=== PATIENT | male | born 1960 | race Caucasian/White ===

== ENCOUNTER 2024-08-04 11:50 | Outpatient (AMB) | payer MEDICAID, SELFPAY ==
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
[2024-08-04 12:59] VITALS: BP 134/86; PULSE 67; RESP 16; O2SAT 96; BMI 35.4
--- OUTSIDE RECORDS SUMMARY | 2024-08-04 13:31 | XMS_ITS | Encounter Summary ---
Author Organization [employer] Address [address] [place] [address] [address] [address] Care Team Providers Care Block Stacker Name Role Phone Dania Corral MD Primary Care Provider [phone] Reason for Visit * Reason Comments Med Management Encounter Details Date Type Department Care Team ([facility] Contact Info) Description 07/09/2024 8:20 AM EST Telemedicine [facility] [address] [place] [address] Dung Crabtree MD [address] [place] [address] Med Management Social History Tobacco Use Types Packs/Day Years Used Date Smoking Tobacco: Never Smokeless Tobacco: Never Alcohol Use Standard Drinks/Week Comments Never 0 (1 standard drink = 0.6 oz pur e alcohol) Depression Answer Date Recorded Patient Health Questionnaire-9 Score 23 07/10/2024 Patient Health Questionnaire-9 Score 23 07/10/2024 Last PHQ-9: Questionnaire Data 4 0 07/10/2024 Housing Stability Answer Date Recorded What is your housing situation today? I am not s ure 01/03/[address] you li ve. Do you have problems with any of the following? None of the above 01/03/2024 Food Insecurity Answer Date Recorded Within the past 12 months, y ou worried that your food would run out before you got money to buy more: Sometimes True 2023 Within the past 12 months,th e food you bought just didn't last and you didn't have enough money to get more: Sometimes True 01/03/2024 Transportation Answer Date Recorded In the past 12 months, has l ack of transportation kept you from medical appts, meetings, work or from getting things needed for daily living? No 01/03/2024 Utilities Answer Date Recorded In the past 12 months, has t he electric, gas, oil or water company threatened to shut off services in your home? No 01/03/2024 Depression Answer Date Recorded Patient Health Questionnaire-2 Score 6 07/10/2024 Internet Access Answer Date Recorded Internet Access Q1 I am not sure 01/27/2024 Internet Access Q2 Not on file 01/27/2024 Sex and Gender Information Value Date Recorded Sex Assigned at Male 03/24/2022 3:45 PM EDT Legal Sex Male 3:45 PM EDT Gender Identity Male 03/24/2022 3:45 PM EDT Sexual Orientation Straight 07/24/2022 10 :23 AM EST documented as of this encounter Progress Notes * Dung Crabtree MD - 07/09/2024 8:20 AM EST Psychiatry Follow-Up Note Length of visit: 20 mins Interview conducted in Lebanese per pt preference and as provider is fluent. Subjective ID: Lupillo Hernández is a 64 y.o. Malaysian straight-identified cis-male individual (pronouns he/him) who was formerly incarcerated for dealing drugs (release 10/2019, 31 years), with history of DM2and psychiatric history of depression, trauma, and opiate (heroin) abuse (sober > 10 years, on Vivitrol) who presents for Med Management. HPI: Patient asks to meet earlier than planned today. Reports updating [employer] and it asked for him to confirm that he discussed whether he could work or not. Pt reports still having a hard time and not feeling mental health is good enough to work. Pain does impact, but even though depression appears to be 2/2 to the pain, the depression itself is impacting his ability to complete tasks. Nightmares are ongoing. Initially when discussed, he was hesitant to make med change, however we discussed that given his depression remains so severe he feels he cannot work, that a change is likely indicated. Pt was open after this discussion. Opiates - ongoing sobriety, adherent with Vivitrol through [facility] >10 years sober, denies any cravings Previous Psychotropic Medication Trials: Celexa - reports on current regimen for some time, but has been on higher doses (40mg) before, and told was decreased due to age Risperidone - to target paranoia, reportedly while was imprisoned. Pt wants to continue as felt hashelped. No evidence of side-effects. Prozac in past, had some trouble talking Does not recall any others, reports having taken a med for sleep that increased appetite (?mirtazapine, does not recall name when asked) Amitriptyline for neuropathy and helps with sleep sertraline prazosin - helped, but 3mg too sedating Current Medications: Current Outpatient Medications on File Prior to Visit Medication Sig Dispense Refill acetaminophen (Tylenol) 500 MG tablet Take by mouth. amitriptyline (Elavil) 25 MG tablet TAKE 1 TABLET (25 MG) BY MOUTH at BEDTIME. 90 tablet 2 atorvastatin (Lipitor) 20 MG tablet TAKE 1 TABLET (20 MG) BY MOUTH IN THE MORNING. 90 tablet 2 finasteride (Proscar) 5 MG tablet Take 5 mg by mouth in the morning. gabapentin (Neurontin) 600 MG tablet TAKE 1 TABLET (600 MG) BY MOUTH 2 TIMES DAILY. 60 tablet 10 lisinopril 10 MG tablet TAKE 1 TABLET (10 MG) BY MOUTH IN THE MORNING. 90 tablet 2 melatonin 3 MG tablet Take 1 tablet (3 mg) by mouth at bedtime. 90 tablet 0 metFORMIN (Glucophage) 500 MG tablet TAKE 1 TABLET (500 MG) BY MOUTH WITH BREAKFAST. 90 tablet 2 nadolol (Corgard) 20 MG tablet TAKE 1 TABLET (20 MG) BY MOUTH IN THE MORNING. 90 tablet 3 naltrexone ER (Vivitrol) injection Apply topically. prazosin (Minipress) 1 MG capsule Take 1-2 capsules (1-2 mg) by mouth at bedtime. For nightmares. 180 capsule 0 sertraline (Zoloft) 100 MG tablet Take 2 tablets (200 mg) by mouth Once per day. 180 tablet 0 tamsulosin (Flomax) 0.4 MG 24 hr capsule Take 0.4 mg by mouth at bedtime. topiramate (Topamax) 100 MG tablet Take 1 tablet (100 mg) by mouth at bedtime. For nightmares. 90 tablet 0 topiramate (Topamax) 50 MG tablet Take 0.5 tablets (25 mg) by mouth if needed at bedtime (breakthrough nightmares). In addition to 100mg tablet. 45 tablet 0 [DISCONTINUED] risperiDONE (RisperDAL) 1 MG tablet Take 1 tablet (1 mg) by mouth 2 times daily. 180tablet 0 No current facility-administered medications on file prior to visit. Current Medication Notes: No other reported changes in medications from those listed in chart. Review of Symptoms: Review of Systems Constitutional: Negative. Except as per HPI All other systems reviewed and are negative. Objective There were no vitals taken for this visit. Wt Readings from Last 4 Encounters: 01/10/24 228 lb 6.4 oz (104 kg) 06/28/23 228 lb (103 kg) 04/27/23 232 lb (105 kg) 07/27/22 220 lb 9.6 oz (100 kg) Physical Exam Constitutional: Appearance: Normal appearance. Neurological: Mental Status: He is alert. Psychiatric: Attention and Perception: Attention and perception normal. He does not perceive auditory or visual hallucinations. Mood and Affect: Affect normal. Mood is depressed (reports worse iso nightmares, pain and poor subsequent sleep). Speech: Speech normal. Behavior: Behavior normal. Behavior is cooperative. Thought Content: Thought content is not paranoid. Thought content does not include homicidal or suicidal ideation. Cognition and Memory: Cognition and memory normal. Judgment: Judgment normal. Laboratory/Imaging/Diagnostic Tests Lab Results Component Value Date CHOLESTEROL 131 01/10/2024 CHOLESTEROL 143 07/27/2022 LDLCHOL 72 01/10/2024 LDLCHOL 73 07/27/2022 HDLCHOL 34 (L) 01/10/2024 HDLCHOL 48 07/27/2022 TRIG 172 (H) 01/10/2024 TRIG 137 07/27/2022 CREATININE 1.14 01/10/2024 CREATININE 1.00 04/27/2023 GLUCOSE 88 01/10/2024 HGBA1C 5.7 (H) 01/10/2024 HGBA1C 5.8 (H) 04/27/2023 AST 16 01/10/2024 AST 15 04/27/2023 ALT 17 01/10/2024 ALT 19 04/27/2023 Assessment/Plan Lupillo Hernández is a 64 y.o. Malaysian straight-identified cis-male individual (pronouns he/him)who was formerly incarcerated for dealing drugs (release 10/2019, 31 years), with history of DM2 andpsychiatric history of depression, trauma, and opiate (heroin) abuse (sober > 10 years, on Vivitrol). Assessment/Plan Problem List Items Addressed This Visit Psychiatry Problems Major depressive disorder, recurrent severe without psychotic features (CMS/HCC) - Primary Remains low. Impacting functioning. Discussed transitioning from risperidone to aripiprazole, whichwould likely help augment antidepressant more than the risperidone. Pt in agreement. Reviewed cross-taper. Has found therapy helpful. Pt asks if can work. He feels he cannot. Agree that at current state, between depression and pain, that can see working would be difficult. Also did note that this may get better in the future once his pain and mood are better managed. Pt was in agreement with this frame. Regarding sleep, will continue to monitor. Poor sleep mainly 2/2 to pain, but could consider a z-drug in the future to see if helps increase quality of sleep without interacting with his other meds. - Pt to resumed therapy, patient to ask therapist to fax over a copy of the HAJA he says he signed with him - Continue Zoloft 200mg - Cross-titrate from Risperdal to Abilify (see below) - Aware patient is on amitriptyline from PCP and at increased risk of serotonin syndrome but has been on this agent for decades without issues, reviewed signs and symptoms of SS and to seek immediatemedical attention if concerned (particularly during cross-taper) - Encourage to try group therapy to socialize more Generalized anxiety disorder - As per Depression Post traumatic stress disorder Although does feel topiramate helps overall baseline of nightmares, currently in a lot of pain (sciatica) while waiting for a new pain MD. This impacts his sleep, which appears in turn to increase the intensity of nightmares. Feels if did not have pain and slept better, this would be better. D Given ongoing low mood, discussed cross-tapering from Risperdal to Abilify, given the latter may have more of an augmenting effect mood-machado. Patient agreed. Reviewed cross-taper. Plans to request sleep study--agree with patient given at risk with BMI and does snore and wake up with headaches sometime. Reports already got referral for [facility] but he needs to call to schedule it now. Risperdal reportedly present for paranoia, however Abilify should continue to help with this--will monitor. - Antidepressant as per Depression - Cross-taper from Risperdal to Abilify (on initially for paranoia from distant past, but cross-tapering to also target mood) - Week 1: Risperdal down to 1mg daily, Abilify 5mg daily - Week 2: Stop Risperdal, increase Abilify to 10mg and stay until next appt - See most recent labs from 07/2021 above - Performed abbreviated AIMS exam via telehealth to evaluate orofacial and upper body movements, none noted and pt has no complaints - Continue prazosin to 1-2mg nightmares and hypervigilence. PCP aware on this agent as also on other anti-hypertensives. Pt found 3mg too sedating.--While trialing topiramate, encouraging to only use1mg for now as we may cross-taper if tolerating topiramate - Continue topiramate range to up to 125mg New Medications Ordered This Visit Medications ARIPiprazole (Abilify) 10 MG tablet Sig: Take 0.5 tablets (5 mg) by mouth Once per day for 7 days, THEN 1 tablet (10 mg) Once per day. Dispense: 30 tablet Refill: 1 Risk Assessment: Imminent Risk of Suicide or Serious Self-Injury: Medium Risk factors: Depression, History of alcohol or other substance use disorder , and History of suicide attempt Protective factors: Denies current suicidal ideation, Future-oriented talk , Willingness to seek help and support , and History of adhering to treatment recommendations and/or prescribed medication regimen documented in this encounter Miscellaneous Notes * Assessment & Plan Note - Dung Crabtree MD - 07/08/2024 2:13 PM EST Associated Problem(s): Opioid use disorder, severe, in sustained remission (CMS/HCC) - Sober - Ongoing Vivitrol through clinic in [place] - Therapy * Assessment & Plan Note - Dung Crabtree MD - 07/08/2024 2:13 PM EST Associated Problem(s): Generalized anxiety disorder - As per Depression * Assessment & Plan Note - Dung Crabtree MD - 07/08/2024 2:13 PM EST Associated Problem(s): Post traumatic stress disorder Although does feel topiramate helps overall baseline of nightmares, currently in a lot of pain (sciatica) while waiting for a new pain MD. This impacts his sleep, which appears in turn to increase the intensity of nightmares. Feels if did not have pain and slept better, this would be better. D Given ongoing low mood, discussed cross-tapering from Risperdal to Abilify, given the latter may have more of an augmenting effect mood-machado. Patient agreed. Reviewed cross-taper. Plans to request sleep study--agree with patient given at risk with BMI and does snore and wake up with headaches sometime. Reports already got referral for [facility] but he needs to call to schedule it now. Risperdal reportedly present for paranoia, however Abilify should continue to help with this--will monitor. - Antidepressant as per Depression - Cross-taper from Risperdal to Abilify (on initially for paranoia from distant past, but cross-tapering to also target mood) - Week 1: Risperdal down to 1mg daily, Abilify 5mg daily - Week 2: Stop Risperdal, increase Abilify to 10mg and stay until next appt - See most recent labs from 07/2021 above - Performed abbreviated AIMS exam via telehealth to evaluate orofacial and upper body movements, none noted and pt has no complaints - Continue prazosin to 1-2mg nightmares and hypervigilence. PCP aware on this agent as also on other anti-hypertensives. Pt found 3mg too sedating.--While trialing topiramate, encouraging to only use1mg for now as we may cross-taper if tolerating topiramate - Continue topiramate range to up to 125mg * Assessment & Plan Note - Dung Crabtree MD - 07/08/2024 2:13 PM EST Associated Problem(s): Major depressive disorder, recurrent severe without psychotic features (CMS/HCC) Remains low. Impacting functioning. Discussed transitioning from risperidone to aripiprazole, whichwould likely help augment antidepressant more than the risperidone. Pt in agreement. Reviewed cross-taper. Has found therapy helpful. Pt asks if can work. He feels he cannot. Agree that at current state, between depression and pain, that can see working would be difficult. Also did note that this may get better in the future once his pain and mood are better managed. Pt was in agreement with this frame. Regarding sleep, will continue to monitor. Poor sleep mainly 2/2 to pain, but could consider a z-drug in the future to see if helps increase quality of sleep without interacting with his other meds. - Pt to resumed therapy, patient to ask therapist to fax over a copy of the HAJA he says he signed with him - Continue Zoloft 200mg - Cross-titrate from Risperdal to Abilify (see below) - Aware patient is on amitriptyline from PCP and at increased risk of serotonin syndrome but has been on this agent for decades without issues, reviewed signs and symptoms of SS and to seek immediatemedical attention if concerned (particularly during cross-taper) - Encourage to try group therapy to socialize more documented in this encounter Plan of Treatment Upcoming Encounters Date Type Department Care Team (Late st Contact Info) Description 08/05/2024 9:40 AM EDT Telemedicine [address] [address] Dung Crabtree MD [address] [place] [id number] 08/14/2024 2:20 PM EDT Telemedicine [address] [address] Dania Corral MD [address] [place] [phone] 08/28/2024 2:20 PM EDT Office Visit [facility] [address] [place] [id number] Dania Corral MD [address] [place] [phone] documented as of this encounter Goals Goal Patient Goal Type Associated Problems Recent Progress Patient-Stated? Author Establish Regular Follow-Ups with PCP Care Plan HBA1C Uncontrolled No Aleta Felix RN Reduce HBA1C Levels Below 9% Care Plan HBA1C Uncontrolled No Aleta Felix RN Consistently take Medications as Prescribed Care Plan Med Adherence No Aleta Felix RN Exercise at Least 20 Minutes per Day Care Plan Patient is Inactive No Aleta Felix RN Wellness - Improve Physical Activity Care Plan Patient is Inactive No Aleta Felix RN Wellness - Annual Optometry apointment Care Plan Wellness Concerns No Aleta Felix RN Wellness - Podiatry DM foot exam Q 6 months Care Plan Wellness Concerns No Aleta Sanches RN Wellness - Dental check up Q 6 months Care Plan Wellness Concerns No Aleta Felix RN documented as of this encounter Visit Diagnoses Diagnosis Major depressive disorder, recurrent severe without psychotic features (CMS/HCC)- Primary Post traumatic stress disorder Posttraumatic stress disorder Generalized anxiety disorder Post traumatic stress disorder Posttraumatic stress disorder Opioid use disorder, severe, in sustained remission (CMS/HCC) Major depressive disorder, recurrent severe without psychotic features (CMS/HCC) Generalized anxiety disorder documented in this encounter Additional Health Concerns Active Problems Noted Date Diagnosed Date Diet Management 10/18/2022 HBA1C Uncontrolled 10/18/2022 Med Adherence 10/18/2022 Patient is Inactive 10/18/2022 Wellness Concerns 10/18/2022 Assessment Noted Time PHQ-9 Depression Total Score: 18 02/2 024 1:08 PM EST documented as of this encounter Care Teams Block Stacker Relationship Specialty Start Date End Date Dania Corral MD [address] [place] [address] PCP - General Internal Medicine 03/30/22 documented as of this encounter
--- OUTSIDE RECORDS SUMMARY | 2024-08-04 13:31 | XMS_ITS | Encounter Summary ---
Author Organization [employer] Address [address] [facility] 7t [place] [address] Care Team Providers Care Production Floater Name Role Phone Dania Corral MD Primary Care Provider [phone] Encounter Details Date Type Department Care Team (Latest Contact Info) Description 07/09/2024 Travel Social History Tobacco Use Types Packs/Day Years [...] AM EST documented as of this encounter Plan of Treatment Upcoming Encounters Date Type Department Care Team (Late st Contact Info) Description 08/05/2024 9:40 AM EDT Telemedicine [facility] [address] [address] Dung Crabtree MD [address] [place] [address] 08/14/2024 2:20 PM EDT Telemedicine [facility] [address] [address] Dania Corral MD [address] [place] [address] 08/28/2024 2:20 PM EDT Office Visit [facility] [address] [address] Dania Corral MD [address] [place] [address] documented as of this encounter Goals Goal [...] Day Care Plan Patient is Inactive No Altea Felix RN Wellness - Improve Physical Activity Care Plan Patient is Inactive No Aleta Felix RN Wellness - Annual Optometry apointment Care Plan Wellness Concerns No Aleta Felix RN Wellness - Podiatry DM foot exam Q 6 months Care Plan Wellness Concerns No Eldredg e, Aleta, flask handler - Dental check up Q 6 months Care Plan Wellness Concerns No Aleta Felix, RN documented as of this encounter Visit Diagnoses Not on filedocumented in this encounter Additional Health Concerns Active Problems Noted Date Diagnosed Date Diet Management 10/18/2022 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
--- OUTSIDE RECORDS SUMMARY | 2024-08-04 13:31 | XMS_ITS | Encounter Summary ---
Author Organization [employer] Address [address] [place] [address] [place] [address] Care Team Providers Care Powerhouse Oiler Name Role Phone Dania Corral MD Primary Care Provider [phone] Reason for Visit * Reason Onset Date Comments Care Coordination 07/30/2024 Encounter Details Date Type Department Care Team ([facility] st Contact Info) Description 07/30/2024 Telephone [facility] [address] [place] [address] Dania Corral MD [address] [place] [address] Care Coordination Social History Tobacco Use Types Packs/Day Years [...] AM EST documented as of this encounter Miscellaneous Notes * Telephone Encounter - Rocío Meza MA - 07/30/2024 1:28 PM EST SAV called [employer] manager [place] [id number] SAV relayed Nurse Bree koehler in a verbal referral to [facility] for [facility] home care. Sav did relay pt is not eligible for CLOTH EXAMINER HAND services through [facility]. [facility] would be assisting him with dressing, transport,meaning grocery shopping, laundry, cooking and cleaning. Pt asked if he could choose who would help him. SAV stated they could ask the case management specialist at intake. SAV also gave him a number to call for update : # [phone] (option 0 to speak to batch still operator). Pt had no further questions or concerns. * Telephone Encounter - Rocío Meza MA - 07/30/2024 1:28 PM EST ----- Message from Nurse Bree Pope sent at 07/30/2024 12:01 PM EST ----- Regarding: SAV please give update to pt, SUMANI Dr. Shayna Dietz [place] team, Please do me a favor. Turkmen speaking individual. Can you let him know that we know that unfortunately he doesnt qualify for CLOTH EXAMINER HAND services through [facility], but I was able to give a verbal referral [facility] for state home care . I let them know that given his sciatic back pain he needs help with dressing and mobility. He also needs help with transport meaning someone doing his grocery shopping, laundry, picking up objects,making the bed, putting items in drawers and in the fridge, cooking, cleaning, etc. This is all because of his severe sciatic back pain. They said they will call him within the upcoming weeks to schedule for a case management specialist to assess hisneeds (which they said they can help w all his needs). And then they will get him enrolled in theirservices. If he needs an update from them they speak Turkmen ph# [phone] (option 0 to speak to batch still operator). ----- Message ----- From: Bree Mac RN Sent: 07/28/2024 12:00 AM EST To: [facility] Subject: Bree - call [facility] to get State [facility]# Pt is not eligible for the CLOTH EXAMINER HAND care through [facility] because he doesnt have 2 or more ADL needs. They do think that he's eligible for State Home Care , we need to cb to provide verbal referral. documented in this encounter Plan of Treatment Upcoming Encounters Date Type Department Care Team (Late st Contact Info) Description 08/05/2024 9:40 AM EDT Telemedicine [address] [address] Dung Crabtree MD [address] [place] [address] 08/14/2024 2:20 PM EDT Telemedicine [facility] [address] [address] Dania Corral MD [address] [place] [address] 08/28/2024 2:20 PM EDT Office Visit [facility] [address] [address] Dania Corral MD [address] [place] [address] documented as of this encounter Goals Goal [...] documented as of this encounter Care Teams Powerhouse Oiler Relationship Specialty Start Date End Date Dania Corral MD [address] [place] [address] PCP - General Internal Medicine 03/30/22 documented as of this encounter
--- OUTSIDE RECORDS SUMMARY | 2024-08-04 13:31 | XMS_ITS | Encounter Summary ---
Author Organization [employer] Address [address] [facility] 7t [place] [address] Care Team Providers Care Wet Pan Mixer Name Role Phone Dania Corral MD Primary Care Provider [phone] Encounter Details Date Type Department Care Team (Latest Contact Info) Description 07/10/2024 Travel Social History Tobacco Use Types Packs/Day [...] Description 08/05/2024 9:40 AM EDT Telemedicine [facility] [address] [address] Dung Crabtree MD [address] [place] [address] 08/14/2024 2:20 PM EDT Telemedicine [facility] [address] [address] Dania Corral MD [address] [place] [address] 08/28/2024 2:20 PM EDT Office Visit [facility] [address] [address] Dania Corral MD [address] [place] [address] documented as of this encounter Goals Goal [...] Plan Wellness Concerns No Eldredg e, Aleta, help desk coordinator - Dental check up Q 6 months Care Plan Wellness Concerns No Aleta Felxi, RN documented as of this encounter Visit Diagnoses Not on filedocumented in this encounter Additional Health Concerns Active Problems Noted Date Diagnosed Date Diet Management 10/18/2022 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
--- OUTSIDE RECORDS SUMMARY | 2024-08-04 13:31 | XMS_ITS | Encounter Summary ---
Author Organization [employer] Address [address] [facility] 7t [place] [address] Care Team Providers Care Medical Insurance Coding Specialist Name Role Phone Dania Corral MD Primary Care Provider [phone] Encounter Details Date Type Department Care Team (Latest Contact Info) Description 07/29/2024 Travel Social History Tobacco Use Types Packs/Day [...] Description 08/05/2024 9:40 AM EDT Telemedicine [facility] [address] [address] Dung Crabtree MD [address] [place] [address] 08/14/2024 2:20 PM EDT Telemedicine [facility] [address] [address] Dania Corral MD [address] [place] [address] 08/28/2024 2:20 PM EDT Office Visit [facility] [address] [address] Dania Corral MD [address] [place] [address] documented as of this encounter Goals Goal [...] Plan Wellness Concerns No Eldredg e, Aleta, balance wheel hand filer - Dental check up Q 6 months [...] documented as of this encounter Care Teams Medical Insurance Coding Specialist Relationship Specialty Start Date End Date Dania Corral MD [address] [place] [address] PCP - General Internal Medicine 03/30/22 documented as of this encounter
--- OUTSIDE RECORDS SUMMARY | 2024-08-04 13:31 | XMS_ITS | Encounter Summary ---
Author Organization [employer] Address [address] [place] [address] [place] [address] Care Team Providers Care Machine Whitener Name Role Phone Dania Corral MD Primary Care Provider [phone] Reason for Visit * Reason Onset Date Comments Care Coordination 07/09/2024 Referral 07/09/2024 Encounter Details Date Type Department Care Team ([facility] st Contact Info) Description 07/09/2024 Telephone [facility] [place] [address] Dania Corral MD [address] [place] [address] Care Coordination; Referral Social History Tobacco Use Types Packs/Day Years [...] encounter Miscellaneous Notes * Telephone Encounter - Bree Mac RN - 07/30/2024 11:29 AM EST RN placed call to [facility] ph# [phone] Transferred to worker on duty named Lyndsay Michaud [facility] requesting a cb to place a new referral for state home care Transferred to referral department and LVM requesting a cb place a new referral for [facility] home care as pt not eligible for MITER GRINDER OPERATOR services. Lyndsay from [facility] ph# [phone] Qualified for State Home Care, but [place] doesn't service [place]. They only service [place] for MITER GRINDER OPERATOR services, but the pt isn't eligible for that service. Lyndsay believes that [facility], which is now called [facility] Care [facility] can assist w a referral for State home care in [facility]. Lyndsay states this RN can call her back if [facility] isn't the correct location for [place]. RN placed call to [facility]# [phone] - option 0 tow motor operator Vera assisted with verbal referral for state home care . This RN states pt was looking for current assistance named Giovanni to become his MITER GRINDER OPERATOR, but that he didn't have 2 or more ADL needs according to [facility] Pt reports needing help with dressing and mobility. He also needs help with transport meaning someone doing his grocery shopping, laundry, picking up objects, making the bed, putting items in drawers and in the fridge, cooking, cleaning, etc. This is all because of his severe sciatic back pain. Vera reports they can help w all the listed needs above. They will call the patient in the upcoming weeks to schedule for a case fitter to visit to perform a needs assessment and get him scheduled with services. RN sent FYI message to Dr. Corral regarding plan and asked [facility] team to call pt with an update on current plan. * Telephone Encounter - Bree Mac RN - 07/25/2024 4:44 PM EST RN received call from Katiuska Contreras @ [facility]# [phone] x [phone] She reports having spoken to pt regarding the MITER GRINDER OPERATOR referral, assessed his needs and unfortunately hedoesn't qualify for their services because he doesnt have 2 or more ADL needs. He does likely qualify for the [facility] services program through [employer] and they should be able to give him limit hours. They will also likely be able to get him the MITER GRINDER OPERATOR he desires as long as that person passes a CORI check. If [facility] would like to provide a referral, please call back their intake line. * Telephone Encounter - Bree Mac RN - 07/22/2024 3:33 PM EST RN received cb from [employer] ph# [phone] x [phone] Cm from the call center is attempting to initiate the referral with this RN, but needs answers to the following questions: Does he live alone? Any medical conditions? -> See med list, this info provided verbally by this RN. Who is the PCP? Last OV? Dr. Dania Corral and 07/17/24 What kind of support does he need? Specific ADLs Name of potential MITER GRINDER OPERATOR that pt may already have in mind? (Ex. Family member or friend who's been a MITER GRINDER OPERATOR in the past). A surrogate/legal guardian or spouse cannot function as MITER GRINDER OPERATOR. Email? Cm states if pt is appropriate for MITER GRINDER OPERATOR care it can take up to 6-8 weeks to initiate services. Noted that pt is Latvian speaking and requires an traffic recorder. Cm states this isn't an issue, but they will send emails for communication to pt in [place]. Cm denied need for this RN to fax Dx list and referral. Not needed at this time. RN placed call to [employer] ph# [phone] - [phone] - option 1 Space And Storage Clerk Laura #[phone] placed call to pt. Pt lives alone. Email: [email or web address] If the pt doesn't have at least 2 ADL needs then they wouldn't qualify for services with [facility], but rather would benefit from referral to [facility] ([facility]) would be in charge of that referral ph# [phone]. Pt reports needing help with dressing and mobility. He also needs help with transport meaning someone doing his grocery shopping, laundry, picking up objects, making the bed, putting items in drawers and in the fridge, cooking, cleaning, etc. This is all because of his severe sciatic back pain. Pt did not yet receive rx for Tramadol in the mail. Pt would prefer for Giovanni Velázquez to be his MITER GRINDER OPERATOR (he is comfortable with this person), but unsure if he's been a MITER GRINDER OPERATOR in the past. RN placed call to [facility] to complete the intake process ph# [phone] x [phone] rep Madai. took down the above information. Their office will call the pt directly within about 3 business days to schedule an assessment. * Telephone Encounter - Bree Mac RN - 07/21/2024 4:58 PM EST RN placed call to [facility] ph# [phone] Call went straight to . [facility] requesting cb to discuss MITER GRINDER OPERATOR services and need for referral. * Telephone Encounter - Chad Peterson - 07/09/2024 12:36 PM EST Patient calling to inform PCP he is in need of a referral for a MITER GRINDER OPERATOR documented in this encounter Plan of Treatment Upcoming Encounters Date Type Department Care Team (Late st Contact Info) Description 08/05/2024 9:40 AM EDT Telemedicine [address] [address] Dung Crabtree MD [address] [place] [address] 08/14/2024 2:20 PM EDT Telemedicine [address] [address] Dania Corral MD [address] [place] [address] 08/28/2024 2:20 PM EDT Office Visit [address] [address] Dania Corral MD [address] [place] [address] documented as of this encounter Goals Goal [...] documented as of this encounter Care Teams Machine Whitener Relationship Specialty [place] [address] [place], [place] [id number] PCP - General Internal Medicine 03/30/22 documented as of this encounter
--- OUTSIDE RECORDS SUMMARY | 2024-08-04 13:31 | XMS_ITS | Clinical Summary ---
Author Organization [employer] Address [address] [facility] [address] [place] [address] Care Team Providers Care Line Tester Name Role Phone Dania Corral MD Primary Care Provider Allergies No known active allergies Medications * This document contains information received from the source organization and may not represent a complete record from that organization. acetaminophen (Tylenol) 500 MG tablet Take by mouth. Active naltrexone ER (Vivitrol) injection Apply topically. 0 Active finasteride (Proscar) 5 MG tablet Take 5 mg by mouth in the morning. 3 Active tamsulosin (Flomax) 0.4 MG 24 hr capsule Take 0.4 mg by mouth at bedtime. 3 Active atorvastatin (Lipitor) 20 MG tabletIndicatio ns:Type 2 diabetes mellitus without complication, without long-term current use of insulin (CMS/HCC) TAKE 1 TABLET (20 MG) BY MOUTH IN THE MORNING. 90 tablet 2 4 12/04/19 25 Active gabapentin (Neurontin) 600 MG tabletIndicatio ns:Type 2 diabetes mellitus without complication, without long-term current use of insulin (CMS/HCC),Arthr algia of both lower legs TAKE 1 TABLET (600 MG) BY MOUTH 2 TIMES DAILY. 60 tablet 10 4 12/06/19 25 Active nadolol (Corgard) 20 MG tabletIndicatio ns:Idiopathic esophageal varices without bleeding (CMS/HCC) TAKE 1 TABLET (20 MG) BY MOUTH IN THE MORNING. 90 tablet 3 4 12/13/19 25 Active lisinopril 10 MG tabletIndicatio ns:Type 2 diabetes mellitus without complication, without long-term current use of insulin (CMS/HCC),Idiop athic esophageal varices without bleeding (CMS/HCC) TAKE 1 TABLET (10 MG) BY MOUTH IN THE MORNING. 90 tablet 2 4 01/22/20 25 Active amitriptyline (Elavil) 25 MG tabletIndicatio ns:Post traumatic stress disorder,Arthra lgia of both lower legs TAKE 1 TABLET (25 MG) BY MOUTH at BEDTIME. 90 tablet 2 4 01/22/20 25 Active metFORMIN (Glucophage) 500 MG tabletIndicatio ns:Type 2 diabetes mellitus without complication, without long-term current use of insulin (CMS/HCC) TAKE 1 TABLET (500 MG) BY MOUTH WITH BREAKFAST. 90 tablet 2 4 01/22/20 25 Active melatonin 3 MG tablet Take 1 tablet (3 mg) by mouth at bedtime. 90 tablet 4 Active prazosin (Minipress) 1 MG capsuleIndicati ons:Post traumatic stress disorder Take 1-2 capsules (1-2 mg) by mouth at bedtime. For nightmares. 180 capsule 4 Active sertraline (Zoloft) 100 MG tabletIndicatio ns:Post traumatic stress disorder,Major depressive disorder, recurrent severe without psychotic features (CMS/HCC),Gener alized anxiety disorder Take 2 tablets (200 mg) by mouth Once per day. 180 tablet 4 Active topiramate (Topamax) 50 MG tablet Take 0.5 tablets (25 mg) by mouth if needed at bedtime (breakthroug h nightmares). In addition to 100mg tablet. 45 tablet 5 09/02/19 25 Active topiramate (Topamax) 100 MG tablet Take 1 tablet (100 mg) by mouth at bedtime. For nightmares. 90 tablet 5 09/02/19 25 Active ARIPiprazole (Abilify) 10 MG tablet Take 0.5 tablets (5 mg) by mouth Once per day for 7 days, THEN 1 tablet (10 mg) Once per day. 30 tablet 1 5 08/16/19 25 Active risperiDONE (RisperDAL) 1 MG tabletIndicatio ns:Post traumatic stress disorder Take 1 tablet (1 mg) by mouth 2 times daily. 180 tablet 4 07/09/19 25 Discontinue d(Therapy completed) traMADol (Ultram) 50 MG tabletIndicatio ns:Post traumatic stress disorder,Arthra lgia of both lower legs,Chronic bilateral low back pain with right-sided sciatica Take 1 tablet (50 mg) by mouth if needed at bedtime for severe pain for up to 15 days. 15 tablet 5 08/02/19 25 Active Problems Problem Noted Date Diagnosed Date Diabetes due to undrl condition w oth diabetic n euro comp 11/30/2022 Assessment & Plan (06/28/2023 3:03 PM EST): Patient with T2DM. Stable. Last A1C: 5.8% Last eye exam: Due Other medications: LUPILLO-I, Statin, Metformin Assessment & Plan (11/30/2022 1:19 PM EDT): Patient with T2DM. Currently the patient is taking: Metformin Last A1C: 5.6%, 08/17 Goals: Continue metformin Last eye exam: Due Last podiatry exam: Du Other medications: Statin, Lupillo-I - Recommended continued metformin - recommend eye and dental exams Encounter for general adult medical examination with abnormal findings 07/27/2022 Assessment & Plan (06/28/2023 3:00 PM EST): -- Recommend regular Eye and Dental care -- Encourage regular exercise -- Counseled on importance of use of daily sunscreen to prevent skin cancer and sun damage -- Counseled on importance of adequate dietary vitamin D and calcium to promote bone health -- Counseled on importance of safer sex practices including decreased number of partners, consistent use of barrier protection Assessment & Plan (07/27/2022 1:43 PM EST): -- Immunizations: Will review once MIIS synches -- HIV testing: No new risk -- STI screening: No new risk -- Recommend regular Eye and Dental care -- Encourage regular exercise -- Counseled on importance of use of daily sunscreen to prevent skin cancer and sun damage -- Counseled on importance of adequate dietary vitamin D and calcium to promote bone health -- Counseled on importance of safer sex practices including decreased number of partners, consistent use of barrier protection Chronic bilateral low back pain with right-sided sciatica 07/27/2022 Assessment & Plan (05/15/2024 1:36 PM EST): Patient reports ongoing sciatica pain, which remains unchanged. Previous labs, including tests to rule out bone infection, were normal, indicating the pain is chronic in nature. The patient is in the process of connecting with pain medicine specialists in [place] for further management. Patient is awaiting a callback from the specialists and expects it could be any moment. - Await callback from pain medicine specialists for appointment - Follow up on pain specialist consultation in 3 months via video appointment Housing Needs Patient requires a letter of support for subsidized housing due to chronic pain and sciatica affecting daily functioning. - Physician to write a support letter for subsidized housing - Staff to contact patient regarding letter delivery and potential edits - Attempt to fax letter if possible, as requested by patient Hyperlipidemia 03/30/2022 Assessment & Plan (06/28/2023 3:06 PM EST): ? ? Order a repeat lipid profile, including total cholesterol, LDL cholesterol, HDL cholesterol, and triglyceride levels, to assess the current lipid status and evaluate the response to treatment. Recommend fasting labs for most accurate results. ? ? Review the patient's current medication regimen for HLD. Ensure the patient's adherence to the prescribed medications and evaluate the need for any adjustments based on the lipid profile results. ? ? Heart-Healthy Diet: Advise the patient to follow a diet low in saturated fats, trans fats, and cholesterol. Encourage the consumption of fruits, vegetables, whole grains, and lean proteins. Recommend limiting processed and high-fat foods. ? ? Regular Exercise: Encourage the patient to engage in at least 150 minutes of moderate-intensity aerobic exercise or 75 minutes of vigorous-intensity exercise per week. ? ? Alcohol Consumption: Discuss the impact of excessive alcohol consumption on lipid levels and advise the patient to limit alcohol intake to moderate levels as per recommended guidelines. ? ? Re-evaluate at follow up in 4-6 months Post traumatic stress disorder 10/07/2020 Assessment & Plan (07/09/2024 8:41 AM EST): Although does feel topiramate helps overall baseline [...] headaches sometime. Reports already got referral for [facility] [place] but he needs to call to schedule [...] too sedating.--While trialing topiramate, encouraging to only use 1mg for now as we may cross-taper if tolerating topiramate - Continue topiramate range to up to 125mg Assessment & Plan (04/21/2024 4:00 PM EST): Although does feel higher dose of topiramate helps overall baseline of nightmares, currently in a lot of pain (sciatica) while waiting for a new pain MD. This impacts his sleep, which appears in turn to increase the intensity of nightmares. Feels if did not have pain and slept better, this would be better. Does not think a psych med change is indicated and plans to pursue referral for new pain MD more aggressively. Reports has apple watch which confirms not having a lot of deep sleep. Denies any s/es from higher dose of topiramate. Have broached subject that it may be worth trying to taper down risperidone given potential long-term side-effects, particularly metabolically. However, patient very strongly wants to continue as feels this agent has helped. Will continue to broach subject periodically that it may be worth trialing how he would do with lower dose/taper to determine it's ongoing need, especially at this dose. For now, per patient strong request, will continue and patient aware of the concerns. Plans to request sleep study--agree with patient given at risk with BMI and does snore and wake up with headaches sometime. Reports already got referral for [facility] [place] but he needs to call to schedule it now. - Antidepressant as per Depression - Continue risperidone 1mg BID for now (was started many years ago, predating was was imprisoned), reports for paranoia. Pt wants to continue. Have discussed tapering but pt not interested yet. Will continue to discuss in future visits. - See most recent labs from 07/2021 above - Performed abbreviated AIMS exam via telehealth to evaluate orofacial and upper body movements, none noted and pt has no complaints - Continue prazosin to 1-2mg nightmares and hypervigilence. PCP aware on this agent as also on other anti-hypertensives. Pt found 3mg too sedating.--While trialing topiramate, encouraging to only use 1mg for now as we may cross-taper if tolerating topiramate - Continue topiramate range to up to 125mg Assessment & Plan (02/26/2024 9:36 AM EDT): Although does feel higher dose of topiramate helps overall baseline of nightmares, currently in a lot of pain (sciatica) while waiting for a new pain MD. This impacts his sleep, which appears in turn to increase the intensity of nightmares. Feels if did not have pain and slept better, this would be better. Does not think a psych med change is indicated and plans to pursue referral for new pain MD more aggressively. Reports has apple watch which confirms not having a lot of deep sleep. Denies any s/es from higher dose of topiramate. Have broached subject that it may be worth trying to taper down risperidone given potential long-term side-effects, particularly metabolically. However, patient very strongly wants to continue as feels this agent has helped. Will continue to broach subject periodically that it may be worth trialing how he would do with lower dose/taper to determine it's ongoing need, especially at this dose. For now, per patient strong request, will continue and patient aware of the concerns. Plans to request sleep study--agree with patient given at risk with BMI and does snore and wake up with headaches sometime. Encouraging patient to reach out to PCP regarding referral--especially as he would like it done at [facility] [place]. - Antidepressant as per Depression - Continue risperidone 1mg BID for now (was started many years ago, predating was was imprisoned), reports for paranoia. Pt wants to continue. Have discussed tapering but pt not interested yet. Will continue to discuss in future visits. - See most recent labs from 07/2021 above - Performed abbreviated AIMS exam via telehealth to evaluate orofacial and upper body movements, none noted and pt has no complaints - Continue prazosin to 1-2mg nightmares and hypervigilence. PCP aware on this agent as also on other anti-hypertensives. Pt found 3mg too sedating.--While trialing topiramate, encouraging to only use 1mg for now as we may cross-taper if tolerating topiramate - Continue topiramate range to up to 125mg Assessment & Plan (11/26/2023 11:49 AM EDT): Overall, feels sleep is better--thinks starting melatonin helped. However, nightmares continue and distress. Did feel topiramate helped and would like to trial a higher dose. Since tolerating without s/es, appropriate to try. Will increase range up to 125mg Have broached subject that it may be worth trying to taper down risperidone given potential long-term side-effects, particularly metabolically. However, patient very strongly wants to continue as feels this agent has helped. Will continue to broach subject periodically that it may be worth trialing how he would do with lower dose/taper to determine it's ongoing need, especially at this dose. For now, per patient strong request, will continue and patient aware of the concerns. Plans to request sleep study--agree with patient given at risk with BMI and does snore and wake up with headaches sometime. - Antidepressant as per Depression - Continue risperidone 1mg BID for now (was started many years ago, predating was was imprisoned), reports for paranoia. Pt wants to continue. Have discussed tapering but pt not interested yet. Will continue to discuss in future visits. - See most recent labs from 07/2021 above - Performed abbreviated AIMS exam via telehealth to evaluate orofacial and upper body movements, none noted and pt has no complaints - Continue prazosin to 1-2mg nightmares and hypervigilence. PCP aware on this agent as also on other anti-hypertensives. Pt found 3mg too sedating.--While trialing topiramate, encouraging to only use 1mg for now as we may cross-taper if tolerating topiramate - Increase topiramate range to up to 125mg (has been taking 100mg) Assessment & Plan (08/24/2023 11:17 AM EDT): Does feel increase in topiramate helped with quality of sleep. Still some nightmares but less intense. Overall, feels sleep is better--thinks starting melatonin helped. Broached subject today that it may be worth trying to taper down risperidone given potential long-term side-effects, particularly metabolically. However, patient very strongly wants to continue as feels this agent has helped. Will continue to broach subject periodically that it may be worth trialing how he would do with lower dose/taper to determine it's ongoing need, especially at this dose. For now, per patient strong request, will continue and patient aware of the concerns. Plans to request sleep study--agree with patient given at risk with BMI and does snore and wake up with headaches sometime. - Antidepressant as per Depression - Continue risperidone 1mg BID for now (was started many years ago, predating was was imprisoned), reports for paranoia. Pt wants to continue. Have discussed tapering but pt not interested yet. Will continue to discuss in future visits. - See most recent labs from 07/2021 above - Performed abbreviated AIMS exam via telehealth to evaluate orofacial and upper body movements, none noted and pt has no complaints - Continue prazosin to 1-2mg nightmares and hypervigilence. PCP aware on this agent as also on other anti-hypertensives. Pt found 3mg too sedating.--While trialing topiramate, encouraging to only use 1mg for now as we may cross-taper if tolerating topiramate - Continue topiramate range to 75-100mg at bedtime (generally taking 100mg lately) Assessment & Plan (06/25/2023 11:54 AM EST): Does feel increase in topiramate helped with quality of sleep. Still some nightmares but less intense. Plans to request sleep study--agree with patient given at risk with BMI and does snore and wake up with headaches sometime. - Antidepressant as per Depression - Continue risperidone 1mg BID for now (was started many years ago, predating was was imprisoned), reports for paranoia. Pt wants to continue. May discuss reducing dose in future. - See most recent labs from 07/2021 above - Performed abbreviated AIMS exam via telehealth to evaluate orofacial and upper body movements, none noted and pt has no complaints - Continue prazosin to 1-2mg nightmares and hypervigilence. PCP aware on this agent as also on other anti-hypertensives. Pt found 3mg too sedating.--While trialing topiramate, encouraging to only use 1mg for now as we may cross-taper if tolerating topiramate - Continue topiramate range to 75-100mg at bedtime (generally taking 100mg lately) Assessment & Plan (04/18/2023 1:51 PM EST): Does feel topiramate has helped with sleep. Nightmares still. Only taking 50mg. Willing to try 75-100mg. Plans to request sleep study--agree with patient given at risk with BMI and does snore and wake up with headaches sometime. - Antidepressant as per Depression - Continue risperidone 1mg BID for now (was started many years ago, predating was was imprisoned), reports for paranoia. Pt wants to continue. May discuss reducing dose in future. - See most recent labs from 07/2021 above - Performed abbreviated AIMS exam via telehealth to evaluate orofacial and upper body movements, none noted and pt has no complaints - Continue prazosin to 1-2mg nightmares and hypervigilence. PCP aware on this agent as also on other anti-hypertensives. Pt found 3mg too sedating.--While trialing topiramate, encouraging to only use 1mg for now as we may cross-taper if tolerating topiramate - Increase topiramate range to 75-100mg at bedtime if tolerates Assessment & Plan (03/21/2023 1:17 PM EDT): Noticed some significant benefit just the first night on topiramate, but reports had the best sleep he had had for years. However, nightmares returned afterwards. He would like to try higher doses, will provide a range. Tolerating topiramate--will assess for cognitive effects if starts using higher doses consistently. - Antidepressant as per Depression - Continue risperidone 1mg BID for now (was started many years ago, predating was was imprisoned), reports for paranoia. Pt wants to continue. May discuss reducing dose in future. - See most recent labs from 07/2021 above - Performed abbreviated AIMS exam via telehealth to evaluate orofacial and upper body movements, none noted and pt has no complaints - Continue prazosin to 1-2mg nightmares and hypervigilence. PCP aware on this agent as also on other anti-hypertensives. Pt found 3mg too sedating.--While trialing topiramate, encouraging to only use 1mg for now as we may cross-taper if tolerating topiramate - Increase topiramate range to 50-100mg QHS Assessment & Plan (02/21/2023 1:17 PM EDT): Ongoing nightmares but better on prazosin. Content mostly about incarceration. Distressed about these. Did not tolerate higher doses of prazosin. Will do a trial of topiramate to target anxiety. Patient aware off-label for this indication but does have evidence in literature in helping with nightmares. Reviewed common side- effects such as sedation, decreased appetite,and taste change. Reviewed possible cognitive dulling. Made aware of mild increased risk of kidney stones and encourage to hydrate. Patient agreed. Sent info-sheet in [place] as well via [employer]. Patient started therapy outside of . Patient states signed a release with them. Provided him with my fax # so [facility] can be sent to me. - Antidepressant as per Depression - Continue risperidone 1mg BID for now (was started many years ago, predating was was imprisoned), reports for paranoia. Pt wants to continue. May discuss reducing dose in future. - See most recent labs from 07/2021 above - Performed abbreviated AIMS exam via telehealth to evaluate orofacial and upper body movements, none noted and pt has no complaints - Continue prazosin to 1-2mg nightmares and hypervigilence. PCP aware on this agent as also on other anti-hypertensives. Pt found 3mg too sedating.--While trialing topiramate, encouraging to only use 1mg for now as we may cross-taper if tolerating topiramate - Trial of topiramate 25mg at bedtime to target nightmares Assessment & Plan (01/23/2023 10:20 AM EDT): Ongoing nightmares but better on prazosin. Content mostly about incarceration. Although nightmares are ongoing, did not tolerate higher dosing. - Antidepressant as per Depression - Continue risperidone 1mg BID for now (was started many years ago, predating was was imprisoned), reports for paranoia. Pt wants to continue. May discuss reducing dose in future. - See most recent labs from 07/2021 above - Performed abbreviated AIMS exam via telehealth to evaluate orofacial and upper body movements, none noted and pt has no complaints - Continue prazosin to 1-2mg nightmares and hypervigilence. PCP aware on this agent as also on other anti-hypertensives. Pt found 3mg too sedating. Assessment & Plan (12/27/2022 11:14 AM EDT): Ongoing nightmares but better on prazosin. Content mostly about incarceration. Although nightmares are ongoing, did not tolerate higher dosing. - Antidepressant as above - Continue risperidone 1mg BID for now (was started many years ago, predating was was imprisoned), reports for paranoia. Pt wants to continue. May discuss reducing dose in future. - See most recent labs from 07/2021 above - Performed abbreviated AIMS exam via telehealth to evaluate orofacial and upper body movements, none noted and pt has no complaints - Continue prazosin to 1-2mg nightmares and hypervigilence. PCP aware on this agent as also on other anti-hypertensives. Pt found 3mg too sedating. Assessment & Plan (09/25/2022 10:34 AM EDT): Ongoing nightmares but better on prazosin. Content mostly about incarceration. - Antidepressant as above - Continue risperidone 1mg BID for now (was started many years ago, predating was was imprisoned), reports for paranoia. Pt wants to continue. May discuss reducing dose in future. - See most recent labs from 07/2021 above - Performed abbreviated AIMS exam via telehealth to evaluate orofacial and upper body movements, none noted and pt has no complaints - Continue prazosin to 1-2mg nightmares and hypervigilence. PCP aware on this agent as also on other anti-hypertensives. Pt found 3mg too sedating. Assessment & Plan (07/24/2022 10:35 AM EST): Nightmares better but finds 3mg of prazosin too much, will lower back to 1-2mg. - Antidepressant as above - Continue risperidone 1mg BID for now (was started many years ago, predating was was imprisoned), reports for paranoia - Ordered new metabolic monitoring labs on 06/2022 - Last metabolic monitoring labs from 06/2021 by PCP, latest A1c ordered by PCP on 11/2021 was 5.8% (down from 5.9% on 06/2021), being followed by PCP. - Decrease prazosin to 1-2mg nightmares and hypervigilence, notified PCP of increase given on other antihypertensives but bps have not been low. Pt found 3mg too sedating. Assessment & Plan (06/15/2022 10:46 AM EST): Getting distressed about nightmares and now would like to try higher prazosin dose. - Antidepressant as above - Continue risperidone 1mg BID for now (was started many years ago, predating was was imprisoned), reports for paranoia - Last metabolic monitoring labs from 06/2021 by PCP, latest A1c ordered by PCP on 11/2021 was 5.8% (down from 5.9% on 06/2021), being followed by PCP. - Increase prazosin to 3mg nightmares and hypervigilence, notified PCP of increase given on other antihypertensives but bps have not been low Assessment & Plan (05/25/2022 3:27 PM EST): Client reports mix mood; client reports low mood due to son's health status; client reports continual experience of having nightmares; client reports working on continuing to go outside/in public. Sinus pressure 09/24/2020 Type 2 diabetes mellitus without complications 0 09/02/2020 Assessment & Plan (04/30/2023 9:31 AM EST): Patient with T2DM. Currently the patient is taking: Metformin only Last A1C: 5.7% Goals: < 7% Last eye exam: NA Last podiatry exam: NA Last UA: Due Assessment & Plan (07/27/2022 1:42 PM EST): Patient with T2DM. Currently the patient is taking: Metformin Last A1C: <7% Patients home glucose readings: NA Goals: <7% Last eye exam: >3 years ago Last podiatry exam: None, due Last UA: None, due Other medications: Lisinopril, Atorvastatin - continue Metformin - Labs ordered - Eye/Dental exam due Obesity, unspecified 12/19/2019 Arthralgia of both lower legs 12/16/2019 Assessment & Plan (07/17/2024 5:25 PM EST): Patient reports worsening sciatica with significant leg pain, exacerbated by the weather. Previous pain management strategies have been ineffective, necessitating a referral to a pain specialist. The severity of the condition is impacting the patient's ability to work and perform daily activities. - Prescribe tramadol for 3 weeks - Patient advised to take tramadol at night due to drowsiness - Caution against driving or operating heavy machinery while on tramadol - Referral to pain specialist - Patient advised to follow up with the pain specialist if they do not call by Sunday - Patient has an upcoming appointment with a [place]speaking doctor at the pain specialist's office - Staff to conduct phone check-in in 3 weeks - Refill medication if needed after 3 weeks Assessment & Plan (01/10/2024 1:43 PM EDT): - Patient reports pain on the left side, which has been bothering them for three months. - Last saw pain specialist at [facility] approximately five months ago. - Patient mentions pain in this side, this side, here, here indicating left side. - Plan: Submit referral for a pain specialist in [place]. Have returned case inspector assist with connecting the patient to a new pain specialist. Assessment & Plan (11/30/2022 1:39 PM EDT): Chronic issue given trauma/surgery/arthiritis. Recommend continued work with pain specialist. Will touch base about increasing medical management. Continue current management. Benign prostatic hyperplasia 12/16/2019 Assessment & Plan (06/28/2023 3:07 PM EST): Continue current medical management. - Has follow up with urology this month. Assessment & Plan (04/30/2023 9:30 AM EST): Following with urologist. Recently up titrated medication. Assessment & Plan (02/23/2023 4:20 PM EDT): Saw urologist Started on finasteride. Minimal improvement. Has follow up. Palpitations 12/05/2019 Opioid use disorder, severe, in sustained remiss ion 11/19/2019 Assessment & Plan (07/08/2024 2:13 PM EST): - Sober - Ongoing Vivitrol through clinic in [place] - Therapy Assessment & Plan (04/18/2024 8:56 AM EST): - Sober - Ongoing Vivitrol through clinic in [place] - Therapy Assessment & Plan (02/25/2024 2:27 PM EDT): - Sober - Ongoing Vivitrol through clinic in [place] - Therapy Assessment & Plan (11/23/2023 10:59 AM EDT): - Sober - Ongoing Vivitrol through clinic in [facility] Assessment & Plan (08/23/2023 10:05 AM EDT): - Sober - Ongoing Vivitrol through clinic in [facility] Assessment & Plan (06/22/2023 3:22 PM EST): - Sober - Ongoing Vivitrol through clinic in [facility] Assessment & Plan (04/17/2023 10:38 AM EST): - Sober - Ongoing Vivitrol through clinic in [facility] Assessment & Plan (03/20/2023 9:49 AM EDT): - Sober - Ongoing Vivitrol through clinic in [facility] Assessment & Plan (02/20/2023 9:21 AM EDT): - Sober - Ongoing Vivitrol through clinic in [facility] Assessment & Plan (01/23/2023 10:22 AM EDT): - Sober - Ongoing Vivitrol through clinic in [facility] Assessment & Plan (12/26/2022 9:08 AM EDT): - Sober - Ongoing Vivitrol through clinic in [facility] Assessment & Plan (09/24/2022 2:12 PM EDT): - Sober - Ongoing Vivitrol through clinic in [facility] Assessment & Plan (07/23/2022 12:09 PM EST): - Sober - Ongoing Vivitrol through clinic in [facility] Assessment & Plan (06/14/2022 9:42 AM EST): - Sober - Ongoing Vivitrol through clinic in [facility] Esophageal varices 11/18/2019 Assessment & Plan (04/30/2023 9:30 AM EST): Will reach out to CM to help schedule EGD. Asymptomatic for now and on beta blockers Assessment & Plan (11/30/2022 1:19 PM EDT): History of Varices. No concern for bleeding. - BP managed - Doesn't drink alcohol - EGD due Hypertension 11/18/2019 Assessment & Plan (06/28/2023 3:04 PM EST): Patient with hypertension. Denies any chest pain, headaches/vision change, or other concerning acute symptoms related to HTN. Recommend the following: Lifestyle Changes ? ? Follow DASH diet with limited sodium. ? ? Exercise regularly, ideally 30 minutes most days. ? ? Maintain a healthy weight. ? ? Limit alcohol, quit smoking if applicable. ? ? Manage stress with techniques like mindfulness. Medication ? ? Continue medical management Follow-up: ? ? Regularly monitor blood pressure and adjust treatment as necessary. Provide patient education about hypertension. Assessment & Plan (04/30/2023 9:32 AM EST): Continue current management. At goal. Reports snoring and fatigue, interested in sleep study. Assessment & Plan (07/27/2022 1:45 PM EST): Lupillo Hernández is a 62 y.o. male with hypertension.Hypertension ROS: taking medications as instructed, no medication side effects noted, no TIA's, no chest pain on exertion, no dyspnea on exertion and no swelling of ankles. BP 118/84 (BP Location: Right arm, Patient Position: Sitting, BP Cuff Size: Large adult) Pulse 59 Hypertension stable. Plan: Current treatment plan is effective, no change in therapy. Orders and follow up as documented in patient record. Reviewed diet, exercise and weight control.. Insomnia 11/18/2019 Major depressive disorder, r ecurrent severe without psychotic features 11/18/2019 Assessment & Plan (07/09/2024 8:43 AM EST): Remains low. Impacting functioning. Discussed transitioning from risperidone to aripiprazole, which would likely help augment antidepressant more than the [...] and symptoms of SS and to seek immediate medical attention if concerned (particularly during cross-taper) - Encourage to try group therapy to socialize more Assessment & Plan (04/18/2024 8:56 AM EST): Worse but iso poor sleep and more vivid nightmares. Feels if slept better without pain, this would be better. Does not think needs psych med change at this time. Has found therapy helpful. - Pt to resumed therapy, patient to ask therapist to fax over a copy of the HAJA he says he signed with him - Continue Zoloft 200mg - Aware patient is on amitriptyline from PCP and at increased risk of serotonin syndrome but has been on this agent for decades without issues, reviewed signs and symptoms of SS and to seek immediate medical attention if concerned (particularly during cross-taper) - Encourage to try group therapy to socialize more Assessment & Plan (02/26/2024 9:35 AM EDT): Worse but iso poor sleep and more vivid nightmares. Feels if slept better without pain, this would be better. Does not think needs psych med change at this time. Has found therapy helpful. - Pt to resumed therapy, patient to ask therapist to fax over a copy of the HAJA he says he signed with him - Continue Zoloft 200mg - Aware patient is on amitriptyline from PCP and at increased risk of serotonin syndrome but has been on this agent for decades without issues, reviewed signs and symptoms of SS and to seek immediate medical attention if concerned (particularly during cross-taper) - Encourage to try group therapy to socialize more Assessment & Plan (01/10/2024 1:44 PM EDT): - Patient reports mood as same and is currently on medication. - Medication dosage increased to 250 (unclear which medicaiton) mg one month ago, with a slight improvement in mood. - Plan: Continue current medication and follow up with psychiatrist on February 25. - Patient reports difficulty sleeping, not necessarily due to pain. - Patient states I don't sleep a lot when asked about sleep. - Plan: Address sleep issues with psychiatrist during the next appointment. Assessment & Plan (11/26/2023 11:49 AM EDT): Mood varies. Periods of low mood in setting of loneliness. Pain impacting as well. Has found therapy helpful. - Pt to resumed therapy, patient to ask therapist to fax over a copy of the HAJA he says he signed with him - Continue Zoloft 200mg - Aware patient is on amitriptyline from PCP and at increased risk of serotonin syndrome but has been on this agent for decades without issues, reviewed signs and symptoms of SS and to seek immediate medical attention if concerned (particularly during cross-taper) - Encourage to try group therapy to socialize more Assessment & Plan (08/23/2023 10:04 AM EDT): Mood varies. Periods of low mood in setting of loneliness. - Pt to resumed therapy, patient to ask therapist to fax over a copy of the HAJA he says he signed with him - Continue Zoloft 200mg - Aware patient is on amitriptyline from PCP and at increased risk of serotonin syndrome but has been on this agent for decades without issues, reviewed signs and symptoms of SS and to seek immediate medical attention if concerned (particularly during cross-taper) - Encourage to try group therapy to socialize more Assessment & Plan (06/22/2023 3:20 PM EST): Mood varies. Periods of low mood in setting of loneliness. - Pt to resumed therapy, patient to ask therapist to fax over a copy of the HAJA he says he signed with him - Continue Zoloft 200mg - Aware patient is on amitriptyline from PCP and at increased risk of serotonin syndrome but has been on this agent for decades without issues, reviewed signs and symptoms of SS and to seek immediate medical attention if concerned (particularly during cross-taper) - Encourage to try group therapy to socialize more Assessment & Plan (04/17/2023 10:36 AM EST): Mood varies. Periods of low mood in setting of loneliness. - Pt to resumed therapy, patient to ask therapist to fax over a copy of the HAJA he says he signed with him - Continue Zoloft 200mg - Aware patient is on amitriptyline from PCP and at increased risk of serotonin syndrome but has been on this agent for decades without issues, reviewed signs and symptoms of SS and to seek immediate medical attention if concerned (particularly during cross-taper) - Encourage to try group therapy to socialize more Assessment & Plan (03/21/2023 1:16 PM EDT): Mood varies. Periods of low mood in setting of loneliness. - Pt to resumed therapy, patient to ask therapist to fax over a copy of the HAJA he says he signed with him - Continue Zoloft 200mg - Aware patient is on amitriptyline from PCP and at increased risk of serotonin syndrome but has been on this agent for decades without issues, reviewed signs and symptoms of SS and to seek immediate medical attention if concerned (particularly during cross-taper) - Encourage to try group therapy to socialize more Assessment & Plan (02/21/2023 1:18 PM EDT): Mood varies. Periods of low mood in setting of loneliness. Does reflect felt better when had therapist and now established with new one. - Pt to resume therapy - Continue Zoloft 200mg - Aware patient is on amitriptyline from PCP and at increased risk of serotonin syndrome but has been on this agent for decades without issues, reviewed signs and symptoms of SS and to seek immediate medical attention if concerned (particularly during cross-taper) - On waitlist for new [place]speaking therapist at , provided contact information for [facility] and encouraged to try for now. Pt looking into a clinic in [place] as well - Encourage to try group therapy to socialize more Assessment & Plan (01/24/2023 11:55 AM EDT): Mood varies. Periods of low mood in setting of loneliness. Does reflect felt better when had therapist. Provided contact information for [facility], which he has. Complicated because they want him to come in in person for the intake per their policy but too far (they do offer telehealth services). He reports they said they would look into whether he can do telehealth intake but not heard back. [place] there may be a therapist in [place] taking patients so plans to look into this as well. Encouraging to find therapist rather than change medications as most likely get the most benefit from having a therapist at this time. Currently, there are no [place]-speaking therapists at [facility] but patient is formally on the wait list. - Continue Zoloft 200mg - Aware patient is on amitriptyline from PCP and at increased risk of serotonin syndrome but has been on this agent for decades without issues, reviewed signs and symptoms of SS and to seek immediate medical attention if concerned (particularly during cross-taper) - On waitlist for new [place]speaking therapist at , provided contact information for Eduardo Quesada and encouraged to try for now. Pt looking into a clinic in [place] as well - Encourage to try group therapy to socialize more Assessment & Plan (12/27/2022 11:16 AM EDT): Mood varies. Periods of low mood in setting of loneliness. Does reflect felt better when had therapist. Provided contact information for [facility] which provides therapy and substance use treatment in [place], including individual and group therapy. Encouraging to do so rather than change medications as most likely get the most benefit from having a therapist at this time. - Continue Zoloft 200mg - Aware patient is on amitriptyline from PCP and at increased risk of serotonin syndrome but has been on this agent for decades without issues, reviewed signs and symptoms of SS and to seek immediate medical attention if concerned (particularly during cross-taper) - On waitlist for new [place]speaking therapist at , provided contact information for Eduardo Quesada and encouraged to try for now - Encourage to try group therapy to socialize more Assessment & Plan (11/30/2022 1:40 PM EDT): Working with psychiatrist. Keeping eye on SS with TCA and SSRI. On wait list for therapist. Continue current management Assessment & Plan (09/25/2022 10:35 AM EDT): Mood varies. Periods of low mood in setting of son's illness, but also has periods of euthymia. Patient feels can manage and feels it is appropriate. Content with med regimen at this time. - Continue Zoloft 200mg - Aware patient is on amitriptyline from PCP and at increased risk of serotonin syndrome but has been on this agent for decades without issues, reviewed signs and symptoms of SS and to seek immediate medical attention if concerned (particularly during cross-taper) - Therapy (on waitlist for new therapist as previous left) - Encourage to try group therapy to socialize more Assessment & Plan (07/24/2022 10:33 AM EST): Reports stable although does feel isolated. Considering irish-speaking group therapy but the one he asked about is too late for him. Encouraged to ask his contact if there are others and patient agrees, although admits does not like talking in big groups. Does feel current med regimen helps. - Continue Zoloft 200mg - Aware patient is on amitriptyline from PCP and at increased risk of serotonin syndrome but has been on this agent for decades without issues, reviewed signs and symptoms of SS and to seek immediate medical attention if concerned (particularly during cross-taper) - Therapy (on waitlist for new therapist as previous left) - Encourage to try group therapy to socialize more Assessment & Plan (06/15/2022 10:48 AM EST): Some ongoing dysthymia but in setting of isolation. Does not have many activities either. Encouraging patient to consider group therapy as this may help socialize. Reports has friend who runs a substance use group in [place] and willing to consider joining it although causes him a lot of anxiety. - Continue Zoloft 200mg - Aware patient is on amitriptyline from PCP and at increased risk of serotonin syndrome but has been on this agent for decades without issues, reviewed signs and symptoms of SS and to seek immediate medical attention if concerned (particularly during cross-taper) - Therapy (on waitlist for new therapist as previous left) - Encourage to try group therapy to socialize more Generalized anxiety disorder 11/18/2019 Assessment & Plan (07/08/2024 2:13 PM EST): - As per Depression Assessment & Plan (04/18/2024 8:56 AM EST): - As per Depression Assessment & Plan (02/25/2024 2:27 PM EDT): - As per Depression Assessment & Plan (11/23/2023 10:59 AM EDT): - As per Depression Assessment & Plan (08/23/2023 10:04 AM EDT): - As per Depression Assessment & Plan (06/22/2023 3:21 PM EST): - As per Depression Assessment & Plan (04/17/2023 10:37 AM EST): - As per Depression Assessment & Plan (03/20/2023 9:49 AM EDT): - As per Depression Assessment & Plan (02/20/2023 9:21 AM EDT): - As per Depression Assessment & Plan (01/23/2023 10:22 AM EDT): - As per Depression Assessment & Plan (12/26/2022 9:08 AM EDT): - As per Depression Assessment & Plan (09/24/2022 2:12 PM EDT): - As per Depression Assessment & Plan (07/23/2022 12:09 PM EST): - As per Depression Assessment & Plan (06/14/2022 9:42 AM EST): - As per Depression Resolved Problems Problem Noted Date Diagnosed Date Resolved Date PTSD (post-traumatic stress disorder) 05/05/2022 06/14/2022 Assessment & Plan (05/05/2022 1:09 PM EST): Client reports continuing to adjust to new chapter in life; client reports low mood, some nightmares, and some heightened vigilance around safety. Paranoid disorder 11/18/2019 06/14/2022 Encounters Date Type Department Care Team Description 07/30/[address] [address] Dania Corral MD Care Coordination 07/29/2024 Travel 07/18/[address] [address] Dania Corral MD Care Coordination; Medication Question 07/17/2024 4:40 PM EST Telemedicine [address] [address] Dania Corral MD Major depressive disorder, recurrent severe without psychotic features (CMS/HCC) (Primary Dx); Post traumatic stress disorder; Arthralgia of both lower legs; Chronic bilateral low back pain with right-sided sciatica 07/10/2024 Travel 07/09/2024 8:20 AM EST Telemedicine [address] [address] Dung Crabtree MD Med Management 07/09/[address] [phone] Dania Corral MD Care Coordination; Referral 07/09/2024 Travel 07/02/2024 10:00 AM EST Telemedicine [address] [address] Zaki Cash PA Chronic bilateral low back pain with right-sided sciatica (Primary Dx) 06/13/[address] [address] Dania Corral MD Scheduling 06/02/2024 [facility] [address] [address] Dnug Crabtree MD 05/15/2024 1:20 PM EST Telemedicine [facility] [address] [place] [id number] Dania Corral MD Chronic bilateral low back pain with right-sided sciatica (Primary Dx) 05/15/2024 Telephone [facility] [address] [place] [id number] JanettRené diazoma 05/08/2024 Travel from Last 3 Months Immunizations Name Administration Dates Next Due Moderna Covid-19 Vaccine 12+ 06/28/2021,08/11/19 21,07/13/2020 Social History Tobacco Use Types Packs/Day Years Used Date Smoking Tobacco: Never Smokeless Tobacco: Never Tobacco Cessation:Counseling Given: Not Answered Alcohol Use Standard Drinks/Week Comments Never 0 [...] Orientation Straight 07/24/2022 10 :23 AM EST Last Filed Vital Signs Vital Sign Reading Time Taken Comments Blood Pressure 116/81 01/10/2024 1:01 PM EDT Pulse 60 01/10/2024 1:01 PM EDT Temperature 36.9 ??C (98.4 ??F) 06/28/2023 1:05 PM ES T Respiratory Rate - - Oxygen Saturation 98% 01/10/2024 1:01 PM EDT Inhaled Oxygen Concentration - - Weight 104 kg (228 lb 6.4 oz) 01/10/2024 1:01 PM EDT Height 165 cm (5' 4.96 ) 06/28/2023 1:05 PM EST Body Mass Index 38.05 06/28/2023 1:05 PM EST Plan of Treatment Upcoming Encounters Date Type Department Care Team (Late st Contact Info) Description 08/05/2024 9:40 AM EDT Telemedicine [address] [address] Dung Crabtree MD [address] [place] [id number] 08/14/2024 2:20 PM EDT Telemedicine [facility] [address] [place] [address] Dania Corral MD [address] [place] [id number] 08/28/2024 2:20 PM EDT Office Visit [facility] [address] [place] [phone] Dania Corral MD [address] [place] [phone] Health Maintenance Due Date Last Done Comments CT Colonography 1962 Colonoscopy 1962 Colorectal Cancer Screening 1962 FIT DNA/Cologuard 1962 FIT 1962 FOBT 1962 Sigmoidoscopy 1962 Diabetes: Foot Exam 1972 Eye Exam 1972 Alcohol/Substance Use Screening 1974 DTaP/Tdap/Td Vaccines (1 - Tdap) 1981 Diabetes: Urine Protein Screening 1981 Hepatitis A Vaccines (1 of 2 - Risk 2-dose series) 1981 Pneumococcal Vaccine: 50+ Years (1 of 2 - PCV) 1981 Zoster Vaccines (1 of 2) 2012 COVID-19 Vaccine ( season) 2024 06/28/2021, 08/10/2020, 07/13/2020 Influenza Vaccine (#1) 2024 Tobacco Screening 06/28/2024 06/28/2023 Diabetes: Hemoglobin A1C 07/12/2024 024, 04/27/2023, 07/27/2022, Additional history exists SDOH Screening 01/02/2025 01/03/2024 Depression Monitoring (PHQ-9) 01/07/2025 07/10/2024, 07/10/2024 Lipid Panel 01/09/2025 01/10/2024, 07/27/2022 Depression Screening 07/10/2025 07/10/2024, 07/10/19 25 RSV Patients and Patients Aged 60 years or older (1 - 1-dose 75+ series) 2037 HIV Screening Completed 12/03/2019 Hepatitis C Screening Completed 06/28/2021, 020 HIB Vaccines Aged Out No longer eligi ble based on patient's age to complete this topic HPV Vaccines Aged Out No longer eligi ble based on patient's age to complete this topic Hepatitis B Vaccines Aged Out No long er eligible based on patient's age to complete this topic IPV Vaccines Aged Out No longer eligi ble based on patient's age to complete this topic Meningococcal Vaccine Aged Out No asad mine eligible based on patient's age to complete this topic RSV under 20 months Aged Out No longe r eligible based on patient's age to complete this topic Rotavirus Vaccines Aged Out No longer eligible based on patient's age to complete this topic Goals Goal Patient Goal Type Associated Problems [...] Plan Wellness Concerns No Aleta Felix RN Procedures Procedure Name Priority Date/Time Associated Diagnosis Comments HEMOGLOBIN A1C WITH MPG Routine 01/10/2024 1:44 PM EDT Hyperlipidemia, unspecified hyperlipidemia type Arthralgia of both lower legs Type 2 diabetes mellitus without complication, without long-term current use of insulin ([facility]) LIPID PANEL WITH REFLEX TO DIRECT LDL Routine 01/10/2024 1:44 PM EDT Hyperlipidemia, unspecified hyperlipidemia type Arthralgia of both lower legs Type 2 diabetes mellitus without complication, without long-term current use of insulin ([facility]) [facility] HISTORICAL [facility] A LAB RESULT Routine 06/28/2021 12:00 AM EST [facility] H[facility]OR[facility] A LAB RESULT Routine 12/03/2019 10:12 AM EDT from Last 3 Months or Most Recently Relevant to Health Maintenance Results * (ABNORMAL) Lipid Panel with Reflex to Direct LDL (01/10/2024 1:44 PM EDT) Cholesterol, Total 131 <200 mg/dL [facility] [place] [facility] HDL Cholesterol 34(L) > OR = 40 mg/dL [facility] [place] [facility] Triglycerides 172(H) <150 mg/dL [facility] [place] [facility] LDL Cholesterol 72 mg/dL [facility] [place] [facility] Comment: Reference range: <100 Desirable range <100 mg/dL for primary prevention; ?? <70 mg/dL for patients with CHD or diabetic patients with > or = 2 CHD risk factors. LDL-C is now calculated using the Joselin calculation, which is a validated novel method providing better accuracy than the Friedewald equation in the estimation of LDL-C. Chris SS et al. DIPESH. 2013;310(19): 1973-6154 (http://education.[employer]/faq/TWV521) Chol/HDLC Ratio 3.9 <5.0 (calc) [facility] [place] [facility] Non-HDL Cholesterol 97 <130 mg/dL [facility] [place] [facility] Comment: For patients with diabetes plus 1 major ASCVD risk factor, treating to a non-HDL-C goal of <100 mg/dL (LDL-C of <70 mg/dL) is considered a therapeutic option. Blood 01/10/2024 1:44 PM EDT 01/10/2024 1:44 PM EDT us Dania Corral MD LAB BLOOD ORDERABLES Final Resul t [facility] [address], [place] [address] [facility] [place] [facility] [address] [place] [address] * (ABNORMAL) Hemoglobin A1c with Calculated Mean Plasma Glucose (MPG) (01/10/2024 1:44 PM EDT) Hemoglobin A1c 5.7(H) <5.7 % of total Hgb [facility] [place] [facility] Comment: For someone without known diabetes, a hemoglobin A1c value between 5.7% and 6.4% is consistent with prediabetes and should be confirmed with a follow-up test. For someone with known diabetes, a value <7% indicates that their diabetes is well controlled. A1c targets should be individualized based on duration of diabetes, age, comorbid conditions, and other considerations. This assay result is consistent with an increased risk of diabetes. Currently, no consensus exists regarding use of hemoglobin A1c for diagnosis of diabetes for children. Mean Plasma Glucose 126 mg/dL (calc) [place] [facility] Comment: ? This test was performed on the Kristi nacho c503 platform. Effective 07/30/23, a change in test platforms from the Brewer Cup Machine Operator to the Kristi nacho c503 may have shifted HbA1c results compared to historical results. Based on laboratory validation testing conducted at [facility], the Kristi platform relative to the Brewer platform had an average increase in HbA1c value of < or = 0.3%. This difference is within accepted variability established by the National Glycohemoglobin Standardization Program. Note that not all individuals will have had a shift in their results and direct comparisons between historical and current results for testing conducted on different platforms is not recommended. 01/10/2024 1:44 PM EDT 01/10/2024 1:44 PM EDT us Dania Corral MD LAB BLOOD ORDERABLES Final Resul t [facility] [address], [place] [address] [facility] [address] [place] [address] * (ABNORMAL) HISTORICAL MARCO A LAB RESULT (06/28/2021 12:00 AM EST) Only the most recent of2 resultswithin the time period is included. cholesterol, serum 191 <200 mg/dL [facility] HDL cholesterol, serum 40 > OR = 40 mg/dL [facility] triglyceride, serum, random 148 <150 mg/dL [facility] LDL cholesterol, serum 125 MG/DL (CALC)(H) mg/dL [facility] cholesterol/HDL ratio, serum, percent 4.8 (calc) <5.0 [facility] cholesterol, non-HDL, total 151 MG/DL (CALC)(H) <130 mg/dL [facility] blood glucose, random 96 65 - 99 mg/dL [facility] urea nitrogen, blood 13 7 - 25 mg/dL [facility] creatinine, serum 1.03 0.70 - 1.33 mg/dL [facility] Estimated Glomerular Filtration Rate (calc) 79 > OR = 60 mL/min/1 .73m2 [facility] eGFR if 92 > OR = 60 mL/min/1 .73m2 [facility] urea nitrogen/creatinine ratio, serum NOT APPLICABLE (calc) 6 - 22 [facility] sodium, serum 141 135 - 146 mmol/L [facility] potassium, serum 4.6 3.5 - 5.3 mmol/L [facility] chloride, serum 103 98 - 110 mmol/L [facility] carbon dioxide, venous blood 27 20 - 32 mmol/L [facility] calcium, serum 9.9 8.6 - 10.3 mg/dL [facility] protein, total, serum 7.3 6.1 - 8.1 g/dL [facility] Albumin 4.3 3.6 - 5.1 g/dL [facility] globulin, serum 3.0 1.9 - 3.7 [facility] albumin/globulin ratio, serum 1.4 (calc) 1.0 - 2.5 [facility] bilirubin, serum, total 1.1 0.2 - 1.2 mg/dL [facility] alkaline phosphatase, serum 60 35 - 144 units/L [facility] aspartate aminotransferase (SGOT), serum 27 10 - 35 units/L [facility] alanine aminotransferase (SGPT), serum 30 9 - 46 units/L [facility] Hepatitis C virus by PCR <15 [facility] hepatitis C antibody, serum REACTIVE(A) NON-REAC TIVE [facility] hepatitis C comment 27.90(H) <1.00 [facility] vitamin D 25-hydroxy, serum 11(L) 30 - 100 ng/mL [facility] hemoglobin A1C, blood, as % of total hemoglobin 5.9 % OF TOTAL HGB(H) <5.7 % [facility] 06/28/2021 us Dania Corral MD HISTORICAL/NON ORDERABLE LABS Fi nal Result [facility] [address] from Last 3 Months or Most Recently Relevant to Health Maintenance Additional Health Concerns Active Problems Noted Date Diagnosed Date Diet Management 10/18/2022 HBA1C Uncontrolled 10/18/2022 Med Adherence 10/18/2022 Patient is Inactive 10/18/2022 Wellness Concerns 10/18/2022 Insurance [facility] C3 Care Teams Line Tester Relationship Specialty Start Date End Date Dania Corral MD [address] [place] [id number] PCP - General Internal Medicine 03/30/22
--- OUTSIDE RECORDS SUMMARY | 2024-08-04 13:31 | XMS_ITS | Encounter Summary ---
Author Organization [employer] Address [address] [place] [address] Care Team Providers Care Mat Weaver Name Role Phone Dania Corral MD Primary Care Provider [phone] Reason for Referral * Care Management (Routine) - Pending Review Specialty Diagnoses / Procedures Referred By Erik ruiz Referred To Contact Case Management Diagnoses Major depressive disorder, recurrent severe without psychotic features (CMS/HCC) Post traumatic stress disorder Arthralgia of both lower legs Dania Corral MD [address] [place] [id number] Phone: tel: fax: Referral ID Status Reason Start Date Expiration Date Visits Requested Visits Authorized [id number] Pending Review Continuity of Care 07/17/2024 07/17/2025 1 1 Reason for Visit * Reason Comments Follow-up home health aid Encounter Details Date Type Department Care Team ([facility] Contact Info) Description 07/17/2024 4:40 PM EST Telemedicine [facility] [address] [place] [phone] Dania Corral MD [address] [place] [address] Major depressive disorder, recurrent severe without psychotic features (CMS/HCC) (Primary Dx); Post traumatic stress disorder; Arthralgia of both lower legs; Chronic bilateral low back pain with right-sided sciatica Social History Tobacco Use Types Packs/Day Years [...] AM EST documented as of this encounter Patient Instructions * Patient Instructions* Dania Corral MD - 07/17/2024 4:40 PM EST Images from the original note were not included. INTERNAL MEDICINE & INFECTIOUS DISEASES [facility] Thank you for visiting us on SunJul 17, 2024. We appreciate your commitment to managing your health and addressing your sciatica pain, which has been exacerbated by the current weather conditions. Here is a summary of the mortensen instructions from today's consultation: - Medication: Tramadol prescribed for pain relief. Use primarily at night due to drowsiness effect. - Dosage: As discussed, to be taken for 2-3 weeks. - Safety Note: Avoid driving or operating heavy machinery after taking Tramadol. - Referrals: - Pain Specialist: Referral to be sent. Ensure follow-up if not contacted by the specialist. - Cotton Picker Operator (WATER SAFETY INSTRUCTOR): Referral for transportation assistance will be processed. Please confirm the company name through our portal or inform the nurse when contacted. - Support: - Care Coordination: Our team will assist with case management. Expect a call to discuss further details. - Phone Check-In: Scheduled for 3 weeks from now to discuss your progress. - Social Security Administration (SSA) Concerns: - Continuing Disability Review (CDR): Discussed your current work capability. No immediate action required unless your condition improves and you wish to reconsider. Please ensure to follow up with our office by Sunday if you have not been contacted regarding the referrals. Remember to take care of yourself and avoid any risky activities after taking your medication. Additional Notes: Please allow myself and my staff 5 business days to respond to non-urgent refills and lab results. If there is something that comes up that is critical/abnormal, we will be notified of its urgency and will make every effort to reach out within 24-48 hours. For referrals, please give the referral team 10-14 days for non-urgent referrals. If you have concerned about this, please call the referral number listed below. Please make sure you have access to your patient portal. This will allow you to communicate with us, look at your labs and request refills. [email or web address] If you have not had a dental exam/cleaning in the last year or need a routine eye exam, we welcome you to also take advantage of our award-winning Eye Care Department and [id number] Dentistry Department located at the [facility]. To schedule an appointment with any of our services, pleasecall us at [phone]. Please bring a list of your most recent medications to your next physical exam. As I recommend to all my patients, please consider seeing a therapist. If you are limited by insurance, please call your insurance company and ask to see who is in network. If you have private insurance, I would recommend reaching out to [facility] for an intake: [email or web address] A [facility] Medical provider is always available, 24 hours a day, 7 days a week. If you are in need ofurgent care outside of our normal business hours, please call and follow the promptsto reach the [facility] provider. During business hours, you may contact the Nursing Line at [phone]. Thank you for allowing us to be a part of your healthcare, Dania Corral M.D., M.P.H. Internal Medicine & Infectious Diseases Team Appointments: Rx Refill: Referrals: , [email or web address] If you are interested in learning about the research, education, and policy work we do, please consider checking out [facility]: [email or web address] The mission of [facility] is to optimize health and well-being for sexual and gender minorities (SGM) and those affected by HIV. documented in this encounter Progress Notes * Dania Corral MD - 07/17/2024 4:40 PM EST Images from the original note were not included. INTERNAL MEDICINE & INFECTIOUS DISEASES [facility] 2nd FLOOR History of Present Illness Lupillo Hernández is a 64 y.o. male presenting for: Chief Complaint Patient presents with Follow-up home health aid 64-year-old male presents with exacerbation of sciatica, reporting severe leg pain that is worsenedby the current weather conditions. The patient describes the pain as 'really bad.' He is awaiting areferral to a pain specialist, which was recently requested. The patient's current pain management regimen has been ineffective, and he has been prescribed tramadol to be taken at night to help manage the pain. Additionally, the patient requires assistance with transportation due to his condition and is awaiting a referral for a assistant counsel (WATER SAFETY INSTRUCTOR). The patient also notes that he has received a Continuing Disability Review (CDR) from the Social Security Administration, which is evaluating his ongoing eligibility for benefits. He emphasizes his current inability to work due to his pain and overall health status Review of Systems Constitutional: Negative for chills, fatigue, fever and unexpected weight change. HENT: Negative for sore throat. Eyes: Negative for visual disturbance. Respiratory: Negative for cough and shortness of breath. Cardiovascular: Negative for chest pain and palpitations. Gastrointestinal: Negative for abdominal pain, blood in stool, nausea, rectal pain and vomiting. Genitourinary: Negative for dysuria. Musculoskeletal: Positive for arthralgias and myalgias. Negative for joint swelling. Skin: Negative for rash. Neurological: Negative for dizziness, weakness and numbness. Psychiatric/Behavioral: Positive for sleep disturbance. Current Problems: Patient Active Problem List Diagnosis Arthralgia of both lower legs Benign prostatic hyperplasia Esophageal varices ([facility]) Hyperlipidemia Hypertension Insomnia Major depressive disorder, recurrent severe without psychotic features ([facility]) Obesity, unspecified Opioid use disorder, severe, in sustained remission ([facility]) Palpitations Sinus pressure Type 2 diabetes mellitus without complications ([facility]) Generalized anxiety disorder Post traumatic stress disorder Encounter for general adult medical examination with abnormal findings 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 amitriptyline (Elavil) 25 MG tablet TAKE 1 TABLET (25 MG) BY MOUTH at BEDTIME. 90 tablet 2 ARIPiprazole (Abilify) 10 MG tablet Take 0.5 tablets (5 mg) by mouth Once per day for 7 days, THEN 1 tablet (10 mg) Once per day. 30 tablet 1 atorvastatin (Lipitor) 20 MG tablet TAKE 1 [...] addition to 100mg tablet. 45 tablet 0 No current facility-administered medications on file prior to visit. Allergies: No Known Allergies Physical Exam: There were no vitals filed for this visit. Physical Exam Nursing note reviewed. Constitutional: General: He is awake. Pulmonary: Effort: Pulmonary effort is normal. No respiratory distress. Neurological: Mental Status: He is alert and oriented to person, place, and time. Psychiatric: Attention and Perception: Attention normal. Mood and Affect: Mood and affect normal. Speech: Speech normal. Behavior: Behavior normal. Behavior is cooperative. Thought Content: Thought content normal. Cognition and Memory: Cognition normal. Judgment: Judgment normal. Assessment and Plan: Problem List Items Addressed This Visit Arthralgia of both lower legs Patient reports worsening sciatica with significant leg pain, exacerbated by the weather. Previous pain management strategies have been ineffective, necessitating a referral to a pain specialist. Theseverity of the condition is impacting the patient's [...] Patient has an upcoming appointment with a Northern Irish-speaking doctor at the pain specialist's office - Staff to conduct phone check-in in 3 weeks - Refill medication if needed after 3 weeks Relevant Medications traMADol (Ultram) 50 MG tablet Other Relevant Orders Referral to Primary Care [facility] Major depressive disorder, recurrent severe without psychotic features (CMS/HCC) - Primary Relevant Orders Referral to Primary Care [facility] Post traumatic stress disorder Relevant Medications traMADol (Ultram) 50 MG tablet Other Relevant Orders Referral to Primary Care [facility] Chronic bilateral low back pain with right-sided sciatica Relevant Medications traMADol (Ultram) 50 MG tablet Complete Medication List: Current Outpatient Medications: acetaminophen (Tylenol) 500 MG tablet, Take by mouth., Disp: , Rfl: amitriptyline (Elavil) 25 MG tablet, TAKE 1 TABLET (25 MG) BY MOUTH at BEDTIME., Disp: 90 tablet, Rfl: 2 ARIPiprazole (Abilify) 10 MG tablet, Take 0.5 tablets (5 mg) by mouth Once per day for 7 days, THEN1 tablet (10 mg) Once per day., Disp: 30 tablet, Rfl: 1 atorvastatin (Lipitor) 20 MG tablet, TAKE 1 TABLET (20 MG) BY MOUTH IN THE MORNING., Disp: 90 tablet, Rfl: 2 finasteride (Proscar) 5 MG tablet, Take 5 mg by mouth in the morning., Disp: , Rfl: gabapentin (Neurontin) 600 MG tablet, TAKE 1 TABLET (600 MG) BY MOUTH 2 TIMES DAILY., Disp: 60 tablet, Rfl: 10 lisinopril 10 MG tablet, TAKE 1 TABLET (10 MG) BY MOUTH IN THE MORNING., Disp: 90 tablet, Rfl: 2 melatonin 3 MG tablet, Take 1 tablet (3 mg) by mouth at bedtime., Disp: 90 tablet, Rfl: 0 metFORMIN (Glucophage) 500 MG tablet, TAKE 1 TABLET (500 MG) BY MOUTH WITH BREAKFAST., Disp: 90 tablet, Rfl: 2 nadolol (Corgard) 20 MG tablet, TAKE 1 TABLET (20 MG) BY MOUTH IN THE MORNING., Disp: 90 tablet, Rfl: 3 naltrexone ER (Vivitrol) injection, Apply topically., Disp: , Rfl: prazosin (Minipress) 1 MG capsule, Take 1-2 capsules (1-2 mg) by mouth at bedtime. For nightmares.,Disp: 180 capsule, Rfl: 0 sertraline (Zoloft) 100 MG tablet, Take 2 tablets (200 mg) by mouth Once per day., Disp: 180 tablet, Rfl: 0 tamsulosin (Flomax) 0.4 MG 24 hr capsule, Take 0.4 mg by mouth at bedtime., Disp: , Rfl: topiramate (Topamax) 100 MG tablet, Take 1 tablet (100 mg) by mouth at bedtime. For nightmares., Disp: 90 tablet, Rfl: 0 topiramate (Topamax) 50 MG tablet, Take 0.5 tablets (25 mg) by mouth if needed at bedtime (breakthrough nightmares). In addition to 100mg tablet., Disp: 45 tablet, Rfl: 0 traMADol (Ultram) 50 MG tablet, Take 1 tablet (50 mg) by mouth if needed at bedtime for severe painfor up to 15 days., Disp: 15 tablet, Rfl: 0 - Dania Corral M.D., M.P.H., Internal Medicine & Infectious Diseases 07/17/24 documented in this encounter Miscellaneous Notes * Assessment & Plan Note - Dania Corral MD - 07/17/2024 5:25 PM ESTAssociated Problem(s): Arthralgia of both lower legs Patient reports worsening sciatica with significant leg pain, exacerbated by the weather. Previous pain management strategies have been ineffective, necessitating a referral to a pain specialist. Theseverity of the condition is impacting the patient's [...] Patient has an upcoming appointment with a Northern Irish-speaking doctor at the pain specialist's office - Staff to conduct phone check-in in 3 weeks - Refill medication if needed after 3 weeks documented in this encounter Plan of Treatment Upcoming Encounters Date Type Department Care Team (Late st Contact Info) Description 08/05/2024 9:40 AM EDT Telemedicine [place] [phone] Dung Crabtree MD [address] [place] [phone] 08/14/2024 2:20 PM EDT Telemedicine [facility] [address] [address] Dania Corral MD [address] [place] [phone] 08/28/2024 2:20 PM EDT Office Visit [facility] [address] [address] Dania Corral MD [address] [place] [phone] Scheduled Referrals Name Type Priority Associated Diagnoses Orde r Schedule Referral to Primary Care [facility] Outpatient Referral Routine Major depressive disorder, recurrent severe without psychotic features (CMS/HCC) Post traumatic stress disorder Arthralgia of both lower legs Ordered: 07/17/2024 documented as of this encounter Goals Goal [...] Post traumatic stress disorder Posttraumatic stress disorder Arthralgia of both lower legs Chronic bilateral low back pain with right-sided sciatica Post traumatic stress disorder Posttraumatic stress disorder [...] documented as of this encounter Care Teams Mat Weaver Relationship Specialty Start Date End Date Dania Corral MD [address] [place] [address] PCP - General Internal Medicine 03/30/22 documented as of this encounter
--- OUTSIDE RECORDS SUMMARY | 2024-08-04 13:31 | XMS_ITS ---
Care Plan Created on: August 04, 2024 Lupillo Hernández : 1960 Sex: Male Author Organization [employer] Address [address] [place] [address] Care Team Providers Care Soft Boarder Name Role Phone aDnia Corral MD Primary Care Provider Active Problems * This document contains information received from the source organization and may not represent a complete record from that organization. Problem Noted Date Diagnosed Date Diabetes due [...] of connecting with pain medicine specialists in [place] for further management. Patient is awaiting a [...] headaches sometime. Reports already got referral for [facility] but he needs to call [...] headaches sometime. Reports already got referral for [facility] but he needs to call [...] as he would like it done at [facility]. - Antidepressant as per Depression - Continue [...] to hydrate. Patient agreed. Sent info-sheet in [place] as well via [employer]. Patient started therapy outside of . Patient [...] Patient has an upcoming appointment with a [place]-speaking doctor at the pain specialist's office - Staff to conduct phone check-in in 3 weeks - Refill medication if needed after 3 weeks Assessment & Plan (01/10/2024 1:43 PM EDT): - Patient reports pain on the left side, which has been bothering them for three months. - Last saw pain specialist at [facility] approximately five months ago. - Patient mentions pain in this side, this side, here, here indicating left side. - Plan: Submit referral for a pain specialist in [place]. Have caser assist with connecting the patient to a [...] Sober - Ongoing Vivitrol through clinic in [place] - Therapy Assessment & Plan (04/18/2024 8:56 AM EST): - Sober - Ongoing Vivitrol through clinic in [facility] Assessment & Plan (02/25/2024 2:27 PM EDT): - Sober - Ongoing Vivitrol through clinic in [facility] Assessment & Plan (11/23/2023 10:59 AM EDT): - Sober - Ongoing Vivitrol through clinic in [facility] Assessment & [facility] (08/23/2023 10:05 AM EDT): - Sober - Ongoing Vivitrol through clinic in [facility] & [facility] (06/22/2023 3:22 PM EST): - Sober - Ongoing Vivitrol through clinic in [facility] & [facility] (04/17/2023 10:38 AM EST): - Sober - Ongoing Vivitrol through clinic in [facility] Assessment & [facility] (03/20/2023 9:49 AM EDT): - Sober - Ongoing Vivitrol through clinic in [facility] Assessment & Plan (02/20/2023 9:21 AM EDT): - Sober - Ongoing Vivitrol through clinic in [facility] Assessment & [facility] (01/23/2023 10:22 AM EDT): - Sober - Ongoing Vivitrol through clinic in [facility] Assessment & [facility] (12/26/2022 9:08 AM EDT): - Sober - Ongoing Vivitrol through clinic in [facility] Assessment & [facility] (09/24/2022 2:12 PM EDT): - Sober - Ongoing Vivitrol through clinic in [facility] Assessment & [facility] (07/23/2022 12:09 PM EST): - Sober - Ongoing Vivitrol through clinic in [place] - Therapy Assessment & Plan (06/14/2022 9:42 AM EST): - Sober - Ongoing Vivitrol through clinic in [place] - Therapy Esophageal varices 11/18/2019 Assessment & Plan (04/30/2023 [...] during cross-taper) - On waitlist for new [place]-speaking therapist at , provided contact information for Eduardo Quesada and encouraged to try for now. Pt looking into a clinic in [place] as well - Encourage to try group [...] do telehealth intake but not heard back. [place] there may be a therapist in [place] taking patients so plans to look into this as well. Encouraging to find therapist rather than change medications as most likely get the most benefit from having a therapist at this time. Currently, there are no [place]-speaking therapists at [facility] but patient is formally on the wait list. - Continue Zoloft 200mg - Aware patient is on amitriptyline from PCP and at increased risk of serotonin syndrome but has been on this agent for decades without issues, reviewed signs and symptoms of SS and to seek immediate medical attention if concerned (particularly during cross-taper) - On waitlist for new [place]-speaking therapist at , provided contact information for Eduardo Quesada and encouraged to try for now. Pt looking into a clinic in [place] as well - Encourage to try group therapy to socialize more Assessment & Plan (12/27/2022 11:16 AM EDT): Mood varies. Periods of low mood in setting of loneliness. Does reflect felt better when had therapist. Provided contact information for [facility]ardo Q[facility] which provides therapy and substance use treatment in [place], including individual and group therapy. Encouraging to [...] during cross-taper) - On waitlist for new [place]-speaking therapist at , provided contact information for [...] Reports stable although does feel isolated. Considering hebrew-speaking group therapy but the one he asked [...] who runs a substance use group in [place] and willing to consider joining it although [...] vigilance around safety. Paranoid disorder 11/18/2019 06/14/2022 Additional Health Concerns Active Problems Noted Date Diagnosed Date Diet Management 10/18/2022 HBA1C Uncontrolled 10/18/2022 Med Adherence 10/18/2022 Patient is Inactive 10/18/2022 Wellness Concerns 10/18/2022 Goals Goal Patient Goal Type Associated Problems [...] Plan Wellness Concerns No Aleta Felix RN Interventions Care Plan Interventions Intervention Entry Date Outcome Address Appointment Scheduling 10/18/2022 Note:Ensure PT1 in place Address Appointment Scheduling 10/18/2022 Note:Ensure PT1 in place Address Appointment Scheduling 10/18/2022 Note:Ensure PT1 in place Explore community resources including walking groups, assistance programs, and home videos 10/18/2022 Develop exercise plan with patient 10/18/2022 Discuss barriers to activity with patient. Update SDOH 10/18/2022 Assist patients in setting up daily notes/alarms for meds. Consider pill box use 10/18/2022 Educate patient on frequency and refill details of meds 10/18/2022 Discuss barriers to medication adherence with patient 10/18/2022 Discuss diabetes treatment plan with patient 10/18/2022 Educate patient on regular BS checks 10/18/2022 Educate patient on diet and exercise 10/18/2022 Discuss schedule for PCP visits with patient 10/18/2022 Determine patient's next PCP visit 10/18/2022 Refer patient to PCP 10/18/2022 Related Goals and Interventions Goal Associated Intervent ions Establish Regular Follow-Ups with PCP Adina wood schedule for PCP visits with patient; Determine patient's next PCP visit; Refer patient to PCP Reduce HBA1C Levels Below 9% Discuss oralia betes treatment plan with patient; Educate patient on regular BS checks; Educate patient on diet and exercise Consistently take Medication s as Prescribed Assist patients in setting up daily notes/alarms for meds. Consider pill box use; Educate patient on frequency and refill details of meds; Discuss barriers to medication adherence with patient Exercise at Least 20 Minutes per Day Exp nando community resources including walking groups, assistance programs, and home videos; Develop exercise plan with patient; Discuss barriers to activity with patient. Update [facility] Wellness - Annual Optometry apointment A ddress Appointment Scheduling Wellness - Podiatry DM foot exam Q 6 months Address Appointment Scheduling Wellness - Dental check up Q 6 months Ad dress Appointment Scheduling
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
--- OUTSIDE RECORDS SUMMARY | 2024-08-04 13:31 | XMS_ITS | Encounter Summary ---
Author Organization [employer] Address [address] [place] [address] [address] [address] Care Team Providers Care Senior Counsel Commercial Name Role Phone Dania Corral MD Primary Care Provider [phone] Reason for Visit * Reason Onset Date Comments Care Coordination 07/18/2024 Medication Question 07/18/2024 Encounter Details Date Type Department Care Team ([facility] Contact Info) Description 07/18/2024 Telephone [facility] MED [facility] [place] [address] Dania Corral MD [address] [place] [id number] Care Coordination; Medication Question Social History Tobacco Use Types Packs/Day Years [...] Telephone Encounter - Bree Mac RN - 07/18/2024 5:33 PM EST RN placed call to [employer] ph# [phone] - option 1 [employer] named Mayela #[id number] placed call to pt. Informed pt the reason for the DUR at the [facility] with Tramadol + Vivitrol. Pt reports last Vivitrol injection was approx 3 weeks ago, next injection is scheduled for 07/25/24. RN informed pt OK to start Tramadol for pain x15 days (as needed as a bridge while waiting for [facility]). Rec that next Vivitrol injection should not be scheduled until he is 7 days out from the last dose of the Tramadol. Pt verbalized understanding of plan of care. Reports no current craving concerns and feels comfortable to reschedule Vivitrol injection date. Pt is currently looking for BOAT BUILDER through [facility] ph# [phone]. No further questions/concerns at this time. * Telephone Encounter - Bree Mac RN - 07/18/2024 3:02 PM EST RN placed call to [employer] ph# [phone] - [phone]# - option 1 [employer] named Valentina # [id number] placed call to pt re: medication request. Pt reports being rx Tramadol by Dr. Corral yesterday, but unable to p/u from [facility] as pt has been regularly receiving Vivitrol x4 years. Used to get Vivitrol @ [facility]. Transitioned to [facility]. RN reviewed Tramadol acts as an opioid and typically it is rec to refrain from taking opioids + Vivitrol given potential to precipitate w/d. RN sent message to Dr. Corral for rec. * Telephone Encounter - Silviashantell Correia - 07/18/2024 11:43 AM EST Pt states that he is prescribed Vivitrol by PCP and is taking Tramador and was told to call his PCPto see if it's okay to take them? Pt is requesting call back please and also to call Pharmacy. documented in this encounter Plan of Treatment Upcoming Encounters Date Type Department Care Team (Late st Contact Info) Description 08/05/2024 9:40 AM EDT Telemedicine [address] [address] Dung Crabtree MD [address] [place] [address] 08/14/2024 2:20 PM EDT Telemedicine [facility] [address] [place] [address] Dania Corarl MD [address] [place] [address] 08/28/2024 2:20 PM EDT Office Visit [facility] [address] [place] [address] Dania Corral MD [address] [place] [address] documented as of this encounter Goals Goal [...] documented as of this encounter Care Teams Senior Counsel Commercial Relationship Specialty Start Date End Date Dania Corral MD [address] [place] [address] PCP - General Internal Medicine 03/30/22 documented as of this encounter
--- OUTSIDE RECORDS SUMMARY | 2024-08-04 13:31 | XMS_ITS ---
Author Organization [facility] Address [address] [place] [address] [place] [address] Care Team Providers Care Range Feeder Name Role Phone Dania Corral MD Primary Care Provider [phone] High Risk Care Management Status:Enrolled (Active) Start date:09/22/2022 Enrollment date:10/17/2022 Enrollment reason:Identified used clinical data Case Team Name Relationship Phone Aleta Felix RN Registered Nurse(Responsible Staff) [phone] Continued Care and Services Coordination
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
--- OUTSIDE RECORDS SUMMARY | 2024-08-04 13:32 | XMS_ITS | Encounter Summary ---
Author Organization [employer] Address [address] [place] [address], [place] [address] Care Team Providers Care Drafter Assistant Name Role Phone Dania Corral MD Primary Care Provider [phone] Marian Lazo RN Unavailable Unavailable Reason for Visit * Reason Comments Med Refill Encounter Details Date Type Department Care Team ([facility] st Contact Info) Description 06/30/2022 Refill [facility] [address] [place] [address] Dania Corral MD [address] [place] [address] Type 2 diabetes mellitus without complication, without long-term current use of insulin (CMS/HCC); Arthralgia of both lower legs Social History Tobacco Use Types Packs/Day Years Used Date Smoking Tobacco: Never Assessed Sex and Gender Information Value Date Recorded Sex Assigned at Male 03/24/2022 3:45 PM EDT Legal Sex Male 3:45 PM EDT Gender Identity Male 03/24/2022 3:45 PM EDT Sexual Orientation Straight 07/24/2022 10 :23 AM EST COVID-19 Exposure Response Date Recorded In the last 10 days, have yo u been in contact with someone who was confirmed or suspected to have Coronavirus/COVID-19? No / Unsure 06/08/2022 9:04 AM EST documented as of this encounter Miscellaneous Notes * Telephone Encounter - Dania Corral MD - 06/30/2022 1:03 PM EST Approving, but needs appt for additional refills. documented in this encounter Plan of Treatment Upcoming Encounters Date Type Department Care Team (Late st Contact Info) Description 08/05/2024 9:40 AM EDT Telemedicine [address] [address] Dung Crabtree MD [address] [place] [address] 08/14/2024 2:20 PM EDT Telemedicine [facility] [address] [address] Dania Corral MD [address] [place] [address] 08/28/2024 2:20 PM EDT Office Visit [facility] [address] [address] Dania Corral MD [address] [place] [address] documented as of this encounter Visit Diagnoses Diagnosis Type 2 diabetes mellitus without complication, without long-term current use of insulin (CMS/HCC) Arthralgia of both lower legs Post traumatic stress disorder Posttraumatic stress disorder Opioid use disorder, severe, in sustained remission (CMS/HCC) Major depressive disorder, recurrent severe without psychotic features (CMS/HCC) Generalized anxiety disorder documented in this encounter Care Teams Drafter Assistant Relationship Specialty Start Date End Date Dania Corral MD [address] [place] [address] PCP - General Internal Medicine 03/30/22 Marian Lazo, RAYMUNDO Registered Nurse Family Medicine 02/05/23 05/07/23 documented as of this encounter
== END 2024-08-04 13:23 | disposition home or self-care (01) ==
PROVIDERS: Visit Provider Anesthesiology
DX: M54.16 Radiculopathy, lumbar region (principal); G89.4 Chronic pain syndrome
CPT/HCPCS: 99203

== ENCOUNTER → 2024-08-04 11:50 | Outpatient (BNVA) | payer MEDICAID, SELFPAY | PROVIDERS: Visit Provider Anesthesiology | DX: M54.16 Radiculopathy, lumbar region (principal); G89.4 Chronic pain syndrome | CPT/HCPCS: 99202 ==

== ENCOUNTER 2024-09-30 06:20 | Outpatient (REF) | payer MEDICAID, SELFPAY ==
--- NOTE | ~2024-09-30 | FL_ITS ---
EXAMINATION: FL GUIDANCE ONLY HISTORY: M54.16 - Radiculopathy, lumbar region COMPARISON: None available. TECHNIQUE: Fluoroscopy time: 0.4 minutes. Cumulative Dose: 5.84 mGy. DAP: 0.101 mGym2 Images: 2. FINDINGS: Images demonstrate needles and contrast material in the regions of the bilateral L5-S1 facet joints. FL/FL guidance in treatment room IMPRESSION: Fluoroscopy during procedure. Please see procedure report for additional information. Electronically signed by: Darius George MD 09/30/2024 11:50 AM EDT
--- OUTSIDE RECORDS SUMMARY | 2024-09-30 06:24 | XMS_ITS | Encounter Summary ---
Author Organization [facility] Address [address] [place] [address] Care Team Providers Care Military Exchange Wireless Manager Name Role Phone Physician, No Pcp Primary Care Provider Unavaila ble Encounter Details Date Type Department Care Team (Late st Contact Info) Description 08/06/2024 Lab Requisition [facility] - Main Lab [address] [facility] [place] [address] Maximo Enrique MD [address] [place] [phone] Family history of malignant neoplasm of prostate Social History Tobacco Use Types Packs/Day Years Used Date Smoking Tobacco: Never Assessed Sex and Gender Information Value Date Recorded Sex Assigned at Male 08/14/2024 12:18 PM EDT Legal Sex Male 7:59 AM EST Gender Identity Male 08/14/2024 12:18 PM EDT Sexual Orientation Straight 08/14/2024 12 :18 PM EDT documented as of this encounter Plan of Treatment Not on file documented as of this encounter Procedures Procedure Name Priority Date/Time Associated Diagnosis Comments COMPLETE BLOOD COUNT Routine 08/06/2024 9:59 AM EDT Family history of malignant neoplasm of prostate documented in this encounter Results * (ABNORMAL) Complete blood count (08/06/2024 9:59 AM EDT) WBC 7.0 4.8 - 10.8 K/mcL LAB HEMETOLOGY METHOD 08/06/2024 2:15 PM EDT [facility] ([facility] RBC 4.80 4.50 - 5.50 M/mcL LAB HEMETOLOGY METHOD 08/06/2024 2:15 PM EDT [facility] LAB Hemoglobin 13.7 13.5 - 17.5 g/dL LAB HEMETOLOGY METHOD 08/06/2024 2:15 PM EDT [facility] LAB Hematocrit 42.4 42.0 - 54.0 % LAB HEMETOLOGY METHOD 08/06/2024 2:15 PM EDT [facility] LAB MCV 88.1 79.0 - 98.0 FL LAB HEMETOLOGY METHOD 08/06/2024 2:15 PM EDT [facility] LAB MCH 28.5 27.0 - 32.0 pcg LAB HEMETOLOGY METHOD 08/06/2024 2:15 PM EDT [facility] LAB MCHC 32.3 32.0 - 37.0 g/dL LAB HEMETOLOGY METHOD 08/06/2024 2:15 PM EDT [facility] LAB RDW 13.9 11.0 - 15.0 % LAB HEMETOLOGY METHOD 08/06/2024 2:15 PM EDT [facility] LAB Platelets 212 130 - 400 K/mcL LAB HEMETOLOGY METHOD 08/06/2024 2:15 PM EDT [facility] LAB MPV 11.8(H) 7.0 - 11.0 FL LAB HEMETOLOGY METHOD 08/06/2024 2:15 PM EDT [facility] LAB NRBC 0.0 <1.0 % LAB HEMETOLOGY METHOD 08/06/2024 2:15 PM EDT [facility] LAB NRBC Absolute 0.00 <0.10 K/mcL LAB HEMETOLOGY METHOD 08/06/2024 2:15 PM T [facility] LAB Blood Venous blood specimen / Unknown 08/06/2024 9:59 AM EDT 08/06/2024 1:32 PM EDT us Maximo Enirque MD LAB BLOOD ORDERABLES Final Res ult [facility] ([facility]) [facility] LAB [address] [place] [address], documented in this encounter Visit Diagnoses Diagnosis Family history of malignant neoplasm of prostate documented in this encounter Care Teams Military Exchange Wireless Manager Relationship Specialty Start Date End Date Physician, No Pcp PCP - General 08/15/24 documented as of this encounter
--- OUTSIDE RECORDS SUMMARY | 2024-09-30 06:24 | XMS_ITS | Encounter Summary ---
Author Organization [facility] Address [address] [place] [address] Care Team Providers Care Foundry Helper Name Role Phone Physician, No Pcp Primary Care Provider Unavaila ble Encounter Details Date Type Department Care Team (Late st Contact Info) Description 08/06/2024 Lab Requisition [facility] - Main Lab [address] [facility] [place] [phone] Bebeto Carbajal MD [address] [place] [address] Urinary tract infection, site not specified Social History Tobacco Use Types Packs/Day Years [...] Procedure Name Priority Date/Time Associated Diagnosis Comments URINALYSIS WITH REFLEX MICROSCOPIC Routine 08/06/2024 9:59 AM EDT Urinary tract infection, site not specified URINALYSIS WITH REFLEX MICROSCOPIC Routine 08/06/2024 9:59 AM EDT Urinary tract infection, site not specified CULTURE URINE Routine 08/06/2024 9:59 AM EDT Urinary tract infection, site not specified documented in this encounter Results * (ABNORMAL) Urinalysis with reflex microscopic (08/06/2024 9:59 AM EDT) Specific [place] Urine 1.018 1.003 - 1.030 LAB URINALYSIS - AUTOMATED METHOD 08/06/2024 2:39 PM [facility] LAB pH, Urine 6.5 5.0 - 8.0 pH LAB URINALYSIS - AUTOMATED METHOD 08/06/2024 2:39 PM [facility] LAB Leukocytes, Urine Small(A) Negative LAB URINALYSIS - AUTOMATED METHOD 08/06/2024 2:39 PM [facility] LAB Nitrite, Urine Negative Negative LAB URINALYSIS - AUTOMATED METHOD 08/06/2024 2:39 PM [facility] LAB Protein, Urine Negative <=Trace mg/dL LAB URINALYSIS - AUTOMATED METHOD 08/06/2024 2:39 PM [facility] LAB Glucose, Urine Negative Negative mg/dL LAB URINALYSIS - AUTOMATED METHOD 08/06/2024 2:39 PM [facility] LAB Ketones, Urine Negative Negative mg/dL LAB URINALYSIS - AUTOMATED METHOD 08/06/2024 2:39 PM [facility] LAB Urobilinogen, Urine 0.2 0.2 - 1.0 mg/dL LAB URINALYSIS - AUTOMATED METHOD 08/06/2024 2:39 PM [facility] LAB Bilirubin, Urine Negative Negative LAB URINALYSIS - AUTOMATED METHOD 08/06/2024 2:39 PM [facility] Blood, Urine Large(A) Negative LAB URINALYSIS - AUTOMATED METHOD 08/06/2024 2:39 PM [facility] LAB RBC, Urine 7.1(H) 0 - 4 /HPF LAB URINALYSIS - AUTOMATED METHOD 08/06/2024 2:39 PM [facility] LAB WBC, Urine 4.6(H) 0 - 4 /HPF LAB URINALYSIS - AUTOMATED METHOD 08/06/2024 2:39 PM EDT [facility] Squamous Epithelial, Urine 28 0 - 60 /LPF LAB URINALYSIS - AUTOMATED METHOD 08/06/2024 2:39 PM EDT [facility] Bacteria, Urine Negative Negative /HPF LAB URINALYSIS - AUTOMATED METHOD 08/06/2024 2:39 PM EDT [facility] LAB Hyaline Casts, Urine 0.4 0 - 3 /LPF LAB URINALYSIS - AUTOMATED METHOD 08/06/2024 2:39 PM EDT [facility] LAB Urine Urine specimen obtained by clean catch procedure / Unknown 08/06/2024 9:59 AM EDT 08/06/2024 1:35 PM EDT us Bebeto Carbajal MD LAB URINE ORDERABLES Final Resul t Performing Organization Address City/[facility]/ZIP Co de Phone Number [facility] LAB [address] [place] [address], [place] [phone] * Culture urine (08/06/2024 9:59 AM EDT) Culture, Urine No growth 08/07/2024 10:39 AM EDT [facility] Urine Urine specimen obtained by clean catch procedure / Unknown 08/06/2024 9:59 AM EDT 08/06/2024 1:35 PM EDT us Bebeto Carbajal MD LAB MICROBIOLOGY - GENERAL ORDER LESVIA Final Result [facility] [address] [place] [address], [place] [phone] documented in this encounter Visit Diagnoses Diagnosis Urinary tract infection, site not specified documented in this encounter Care Teams Foundry Helper Relationship Specialty Start Date End Date Physician, No Pcp PCP - General 08/15/24 documented as of this encounter
--- OUTSIDE RECORDS SUMMARY | 2024-09-30 06:25 | XMS_ITS | Clinical Summary ---
Author Organization [employer] Address [address] [facility] [address] [place] [address] Care Team Providers Care Rn Psychiatric Name Role Phone Dania Corral MD Primary Care Provider [phone] Allergies No known active allergies Medications * This document contains information received from the source organization and may not represent a complete record from that organization. acetaminophen (Tylenol) 500 MG tablet Take by mouth. Active naltrexone ER (Vivitrol) injection Apply topically. 11/19/2019 Active finasteride (Proscar) 5 MG tablet Take 5 mg by mouth in the morning. 06/30/2022 Active tamsulosin (Flomax) 0.4 MG 24 hr capsule Take 0.4 mg by mouth at bedtime. 06/30/2022 Active gabapentin (Neurontin) 600 MG tabletIndicatio ns:Type 2 diabetes mellitus without complication, without long-term current use of insulin (CMS/HCC),Arthr algia of both lower legs TAKE 1 TABLET (600 MG) BY MOUTH 2 TIMES DAILY. 60 tablet 10 12/06/2023 12/06/19 25 Active nadolol (Corgard) 20 MG tabletIndicatio ns:Idiopathic esophageal varices without bleeding (CMS/HCC) TAKE 1 TABLET (20 MG) BY MOUTH IN THE MORNING. 90 tablet 3 12/13/2023 12/13/19 25 Active lisinopril 10 MG tabletIndicatio ns:Type 2 diabetes mellitus without complication, without long-term current use of insulin (CMS/HCC),Idiop athic esophageal varices without bleeding (CMS/HCC) TAKE 1 TABLET (10 MG) BY MOUTH IN THE MORNING. 90 tablet 2 01/22/2024 01/22/20 25 Active amitriptyline (Elavil) 25 MG tabletIndicatio ns:Post traumatic stress disorder,Arthra lgia of both lower legs TAKE 1 TABLET (25 MG) BY MOUTH at BEDTIME. 90 tablet 2 01/22/2024 01/22/20 25 Active metFORMIN (Glucophage) 500 MG tabletIndicatio ns:Type 2 diabetes mellitus without complication, without long-term current use of insulin (CMS/HCC) TAKE 1 TABLET (500 MG) BY MOUTH WITH BREAKFAST. 90 tablet 2 01/22/2024 01/22/20 25 Active melatonin 3 MG tablet TAKE 1 TABLET (3 MG) BY MOUTH at BEDTIME. 90 tablet 08/05/2024 Active sertraline (Zoloft) 100 MG tabletIndicatio ns:Post traumatic stress disorder,Major depressive disorder, recurrent severe without psychotic features (CMS/HCC),Gener alized anxiety disorder TAKE 2 TABLETS (200 MG) BY MOUTH ONCE PER DAY. 180 tablet 08/05/2024 11/04/19 25 Active ARIPiprazole (Abilify) 10 MG tablet Take 1 tablet (10 mg) by mouth Once per day. 90 tablet 08/05/2024 11/04/19 25 Active prazosin (Minipress) 1 MG capsuleIndicati ons:Post traumatic stress disorder Take 1-2 capsules (1-2 mg) by mouth at bedtime. For nightmares. 180 capsule 08/05/2024 11/04/19 25 Active topiramate (Topamax) 50 MG tablet Take 0.5 tablets (25 mg) by mouth if needed at bedtime (breakthrough nightmares). In addition to 100mg tablet. 45 tablet 08/05/2024 11/04/19 25 Active topiramate (Topamax) 100 MG tabletIndicatio ns:Post traumatic stress disorder Take 1 tablet (100 mg) by mouth at bedtime. For nightmares. 90 tablet 08/05/2024 11/04/19 25 Active atorvastatin (Lipitor) 20 MG tabletIndicatio ns:Type 2 diabetes mellitus without complication, without long-term current use of insulin (CMS/HCC) TAKE 1 TABLET (20 MG) BY MOUTH IN THE MORNING. 90 tablet 08/21/2024 08/22/19 26 Active Active Problems Problem Noted Date Diagnosed Date Hematuria 08/14/2024 Nephrolithiasis 08/14/2024 Assessment & Plan (08/14/2024 2:41 PM EDT): - Pain likely due to kidney stones. No urinary tract infection present. - Continue with current tramadol for pain management. Appointment with urologist scheduled for August 15, 2024. Increase water intake. Prescribe stool softener to address constipation. Follow-up after first pain specialist injection in September. Constipation 08/14/2024 Assessment & Plan (08/14/2024 2:41 PM EDT): - Constipation possibly related to current medication or condition. - Prescribe stool softener. Increase water intake. Diabetes due to undrl condition w oth [...] of connecting with pain medicine specialists in [place] for further management. Patient is awaiting a [...] traumatic stress disorder 10/07/2020 Assessment & Plan (09/02/2024 3:36 PM EDT): Although does feel topiramate helps overall baseline of nightmares, pain does appear to continue to trigger nightmares. Optimistic about upcoming injections from ortho. See above regarding sleep. Reviewed sleep hygiene and importance of minimizing how much time he spends awake in bed during the day. He thinks he may invest in a small desk to use to watch videos and read during the day, instead of being in bed. Plans to request sleep study--agree with patient given at risk with BMI and does snore and wake up with headaches sometime. Reports already got referral for [facility] but he needs to call to schedule it now. Risperdal reportedly present for paranoia, however Abilify should continue to help with this--will monitor. - Antidepressant as per Depression - Continue Abilify 10mg, low threshold to increase dose - See most recent labs from 07/2021 [...] to up to 125mg Assessment & Plan (08/05/2024 9:56 AM EDT): Although does feel topiramate helps overall baseline of nightmares, pain does appear to continue to trigger nightmares. Optimistic about upcoming injections from ortho. Noticing improvements in overall mood and anxiety with Abilify. Although some ongoing depressive symptoms, would like to stay at this dose for now as feels helping enough. Plans to request sleep study--agree with patient given at risk with BMI and does snore and wake up with headaches sometime. Reports already got referral for [facility] but he needs to call to schedule it now. Risperdal reportedly present for paranoia, however Abilify should continue to help with this--will monitor. - Antidepressant as per Depression - Continue Abilify 10mg, low threshold to increase dose - See most recent labs from 07/2021 [...] to up to 125mg Assessment & Plan (07/09/2024 8:41 AM EST): [...] headaches sometime. Reports already got referral for [facility] but he needs to [...] headaches sometime. Reports already got referral for [facility] but he needs to [...] as he would like it done at [facility]. - Antidepressant as per [...] to hydrate. Patient agreed. Sent info-sheet in Congolese as well via [employer]. Patient started therapy outside of . Patient [...] Patient has an upcoming appointment with a Congolese-speaking doctor at the pain specialist's office - Staff to conduct phone check-in in 3 weeks - Refill medication if needed after 3 weeks Assessment & Plan (01/10/2024 1:43 PM EDT): - Patient reports pain on the left side, which has been bothering them for three months. - Last saw pain specialist at [facility] approximately five months ago. - Patient mentions pain in this side, this side, here, here indicating left side. - Plan: Submit referral for a pain specialist in [place]. Have cyanide case hardener assist with connecting the patient to a [...] sustained remiss ion 11/19/2019 Assessment & Plan (09/01/2024 9:13 AM EDT): - Sober - Ongoing Vivitrol through clinic in [facility] Assessment & Plan (08/04/2024 8:33 AM EDT): - Sober - Ongoing Vivitrol through clinic in [facility] Assessment & Plan (07/08/2024 2:13 PM EST): - Sober - Ongoing Vivitrol through clinic in [facility] Assessment & Plan (04/18/2024 8:56 AM EST): - Sober - Ongoing Vivitrol through clinic in [facility] Assessment & Plan (02/25/2024 2:27 PM EDT): - Sober - Ongoing Vivitrol through clinic in [facility] Assessment & Plan (11/23/2023 10:59 AM EDT): - Sober - Ongoing Vivitrol through clinic in [facility] Assessment & Plan (08/23/2023 10:05 AM EDT): - Sober - Ongoing Vivitrol through clinic in [facility] Assessment & Plan (06/22/2023 3:22 PM EST): - Sober - Ongoing Vivitrol through clinic in [facility] Assessment & Plan (04/17/2023 10:38 AM EST): - Sober - Ongoing Vivitrol through clinic in [facility] Assessment & Plan (03/20/2023 9:49 AM EDT): - Sober - Ongoing Vivitrol through clinic in [facility] Assessment & Plan (02/20/2023 9:21 AM EDT): - Sober - Ongoing Vivitrol through clinic in [facility] Assessment & Plan (01/23/2023 10:22 AM EDT): - Sober - Ongoing Vivitrol through clinic in [facility] Assessment & Plan (12/26/2022 9:08 AM EDT): - Sober - Ongoing Vivitrol through clinic in [facility] Assessment & Plan (09/24/2022 2:12 PM EDT): - Sober - Ongoing Vivitrol through clinic in [facility] Assessment & Plan (07/23/2022 12:09 PM EST): - Sober - Ongoing Vivitrol through clinic in [facility] Assessment & Plan (06/14/2022 9:42 AM EST): - Sober - Ongoing Vivitrol through clinic in [facility] Esophageal varices 11/18/2019 Assessment & Plan [...] without psychotic features 11/18/2019 Assessment & Plan (09/02/2024 3:35 PM EDT): Mood low iso being isolated and staying in his room for most of the day alone. He processed he was used to this since his time in senior care and can reflect there are ways he could get out more--such as using the common room, going shopping and going to coffee shops. We also processed that his sleep issues are likely 2/2 to spending the whole day in bed. We discussed spending time in a chair and potentially a desk or table during the daytime, to minimize amount of time awake on bed. He was willing to engage in this. Offered to increase Abilify, but pt wants to try to implement above for the next month to see how that goes. This is appropriate. - Pt to resumed therapy, patient to ask therapist to fax over a copy of the HAJA he says he signed with him - Continue Zoloft 200mg - Continue Abilify - Work on leaving room more often, and spending less time in his bed when in room - Aware patient is on amitriptyline from PCP and at increased risk of serotonin syndrome but has been on this agent for decades without issues, reviewed signs and symptoms of SS and to seek immediate medical attention if concerned (particularly during cross-taper) - Encourage to try group therapy to socialize more Assessment & Plan (08/05/2024 9:55 AM EDT): Does notice some improvements in mood and more alert. Initially, had issues with constipation but that resolved. For now, feels content at this dose of Abilify and would like to remain. Sleep is an issue lately. Can reflect is staying in room a lot. We discussed the concept of minimizing amount of time in and near his bed so his body can associate room and bed with sleep. Pt agrees this is important and will try. Will first focus on behavioral interventions before adding more medications. Continues to take melatonin. Also encourage pt to follow-up with sleep study referral as high risk for DENIA which may be impacting. - Pt to resumed therapy, patient to ask therapist to fax over a copy of the HAJA he says he signed with him - Continue Zoloft 200mg - Continue ABilify - Aware patient is on amitriptyline from PCP and at increased risk of serotonin syndrome but has been on this agent for decades without issues, reviewed signs and symptoms of SS and to seek immediate medical attention if concerned (particularly during cross-taper) - Encourage to try group therapy to socialize more Assessment & Plan (07/09/2024 8:43 AM EST): [...] during cross-taper) - On waitlist for new Congolese-speaking therapist at , provided contact information for Eduardo Quesada and encouraged to try for now. Pt looking into a clinic in [place] as well - Encourage to try group [...] do telehealth intake but not heard back. [facility] there may be a therapist in [place] taking patients so plans to look into this as well. Encouraging to find therapist rather than change medications as most likely get the most benefit from having a therapist at this time. Currently, there are no Congolese-speaking therapists at [facility] but patient is formally on the wait list. - Continue Zoloft 200mg - Aware patient is on amitriptyline from PCP and at increased risk of serotonin syndrome but has been on this agent for decades without issues, reviewed signs and symptoms of SS and to seek immediate medical attention if concerned (particularly during cross-taper) - On waitlist for new Congolese-speaking therapist at , provided contact information for [facility] Ques[facility] and encouraged to try for now. Pt looking into a clinic in [place] as well - Encourage to try group therapy to socialize more Assessment & Plan (12/27/2022 11:16 AM EDT): Mood varies. Periods of low mood in setting of loneliness. Does reflect felt better when had therapist. Provided contact information for [facility] which provides therapy and substance use treatment in Congolese, including individual and group therapy. Encouraging to [...] during cross-taper) - On waitlist for new Congolese-speaking therapist at , provided contact information for [...] Reports stable although does feel isolated. Considering djiboutian-speaking group therapy but the one he asked [...] who runs a substance use group in Congolese and willing to consider joining it although [...] Generalized anxiety disorder 11/18/2019 Assessment & Plan (09/01/2024 9:13 AM EDT): - As per Depression Assessment & Plan (08/04/2024 8:33 AM EDT): - As per Depression Assessment & Plan (07/08/2024 2:13 PM EST): [...] Encounters Date Type Department Care Team Description 09/23/2024 Travel 09/22/2024 Population Health Risk Score [facility] ([facility]) Department [address] [place] [phone] Provider, Population Health Generic 09/02/2024 3:20 PM EDT Telemedicine [address] [address] Dung Crabtree MD Med Management 08/26/2024 Travel 08/20/[address] [address] Dania Corral MD Type 2 diabetes mellitus without complication, without long-term current use of insulin (CMS/HCC) 08/14/2024 2:20 PM EDT Telemedicine [address] [address] Dania Corral MD Hematuria, unspecified type (Primary Dx); Nephrolithiasis; Constipation, unspecified constipation type 08/07/2024 Travel 08/05/2024 9:40 AM EDT Telemedicine [address] [address] Dung Crabtree MD Med Management 08/05/[address] [address] Dania Corral MD Type 2 diabetes mellitus without complication, without long-term current use of insulin (CMS/HCC) 08/05/[address] [address] Dung Crabtree MD Post traumatic stress disorder; Major depressive disorder, recurrent severe without psychotic features (CMS/HCC); Generalized anxiety disorder 07/30/2024 Telephone [facility] [address] [address] Dania Corral MD Care Coordination 07/29/2024 Travel 07/18/[address] [address] Dania Corral MD Care Coordination; Medication Question 07/17/2024 4:40 PM EST Telemedicine [facility] [place] [address] Dania Corral MD Major depressive disorder, recurrent severe without psychotic features (CMS/HCC) (Primary Dx); Post traumatic stress disorder; Arthralgia of both lower legs; Chronic bilateral low back pain with right-sided sciatica 07/10/2024 Travel 07/09/2024 8:20 AM EST Telemedicine [facility] [address] [place] [address] Dung Crabtree MD Med Management 07/09/2024 Telephone [facility] [address] [address] Dania Corral MD Care Coordination; Referral 07/09/2024 Travel from Last 3 Months Immunizations Name Administration Dates Next Due Moderna Covid-19 Vaccine 12+ 06/28/2021,08/11/19 21,07/13/2020 Social History Tobacco Use Types Packs/Day Years Used Date Smoking Tobacco: Never Smokeless Tobacco: Never Tobacco Cessation:Counseling Given: Not Answered Alcohol Use Standard Drinks/Week Comments Never 0 (1 standard drink = 0.6 oz pur e alcohol) Depression Answer Date Recorded Patient Health Questionnaire-9 Score 22 08/07/2024 Patient Health Questionnaire-9 Score 22 08/07/2024 Last PHQ-9: Questionnaire Data 3 0 08/07/2024 Housing Stability Answer Date Recorded What is [...] Date Recorded Patient Health Questionnaire-2 Score 6 08/07/2024 Internet Access Answer Date Recorded Internet Access [...] Care Team (Late st Contact Info) Description 10/01/2024 2:20 PM EDT Telemedicine [facility] [address] [address] Dung Crabtree MD [address] [place] [id number] 10/17/2024 2:20 PM EDT Office Visit [facility] [address] [place] [phone] Dania Corral MD [address] [place] [address] Health Maintenance Due Date Last Done Comments CT Colonography 1962 Colonoscopy 1962 Colorectal Cancer Screening 1962 FIT DNA/Cologuard 1962 FIT 1962 FOBT 1962 Sigmoidoscopy 1962 Diabetes: Foot Exam 1972 Eye Exam 1972 Alcohol/Substance Use Screening 1974 DTaP/Tdap/Td Vaccines (1 - Tdap) 1981 Diabetes: Urine Protein Screening 1981 Pneumococcal Vaccine: 50+ Years (1 of 2 - PCV) 1981 Zoster Vaccines (1 of 2) 2012 COVID-19 Vaccine (4 - season) 2024 06/28/2021, 08/10/2020, 07/13/2020 Influenza Vaccine (#1) 2024 Diabetes: Hemoglobin A1C 07/12/2024 024, 04/27/2023, 07/27/2022, Additional history exists SDOH Screening 01/02/2025 01/03/2024 Lipid Panel 01/09/2025 01/10/2024, 07/27/2022 Depression Screening 08/07/2025 08/07/2024, 08/08/19 25 Tobacco Screening 08/14/2025 08/14/2024 RSV Patients and Patients Aged 60 years [...] with PCP Care Plan HBA1C Uncontrolled No ElviraAleta de la garza RN Reduce HBA1C Levels Below 9% Care [...] complication, without long-term current use of insulin ([facility]) LIPID PANEL WITH REFLEX TO DIRECT LDL Routine 01/10/2024 1:44 PM EDT Hyperlipidemia, unspecified hyperlipidemia type Arthralgia of both lower legs Type 2 diabetes mellitus without complication, without long-term current use of insulin ([facility]) [facility] HISTORICAL [facility] A LAB RESULT Routine 06/28/2021 12:00 AM EST [facility] A LAB RESULT Routine 12/03/2019 10:12 AM EDT from Last 3 Months or Most Recently Relevant to Health Maintenance Results * (ABNORMAL) Lipid Panel with Reflex to Direct LDL (01/10/2024 1:44 PM EDT) Cholesterol, Total 131 <200 mg/dL [facility] [place] [email or web address] HDL Cholesterol 34(L) > OR = 40 mg/dL [facility] [place] [facility] Triglycerides 172(H) <150 mg/dL [facility] [place] [facility] LDL Cholesterol 72 mg/dL [facility] [place] [facility] Comment: Reference range: <100 Desirable range <100 mg/dL for primary prevention; ?? <70 mg/dL for patients with CHD or diabetic patients with > or = 2 CHD risk factors. LDL-C is now calculated using the Joselin calculation, which is a validated novel method providing better accuracy than the Friedewald equation in the estimation of LDL-C. Chris CLEMENTE et al. DIPESH. 2013;310(19): 1632-2858 (http://education.[employer]/faq/LVW737) Chol/HDLC Ratio 3.9 <5.0 (calc) [facility] Non-HDL Cholesterol 97 <130 mg/dL [facility] Comment: For patients with diabetes plus 1 major ASCVD risk factor, treating to a non-HDL-C goal of <100 mg/dL (LDL-C of <70 mg/dL) is considered a therapeutic option. Blood 01/10/2024 1:44 PM EDT 01/10/2024 1:44 PM EDT Dania Corral MD LAB BLOOD ORDERABLES Final Resul t [facility] [address], [place] [address] [facility] [place] [email or web address] [address] [place] [address] * (ABNORMAL) Hemoglobin A1c with Calculated Mean Plasma Glucose (MPG) (01/10/2024 1:44 PM EDT) Hemoglobin A1c 5.7(H) <5.7 % of total Hgb [facility] Comment: For someone without known diabetes, a [...] children. Mean Plasma Glucose 126 mg/dL (calc) [facility] Comment: ? This test was performed on the Kristi nacho c503 platform. Effective 07/30/23, a change in test platforms from the [employer] to the Kristi nacho c503 may have shifted HbA1c results compared to historical results. Based on laboratory validation testing conducted at [facility], the Kristi platform relative to the Brewer [...] MD LAB BLOOD ORDERABLES Final Resul t [facility] [address], [place] [address] [facility] [address] [place] [address] * (ABNORMAL) HISTORICAL [facility] A LAB RESULT (06/28/2021 12:00 AM EST) Only the most recent of2 resultswithin the time period is included. [facility] Signature cholesterol, serum 191 <200 mg/dL [facility] [...] hepatitis C antibody, serum REACTIVE(A) NON-REAC TIVE [facility] hepatitis C comment 27.90(H) <1.00 [facility] vitamin D 25-hydroxy, serum 11(L) 30 - 100 ng/mL [facility] hemoglobin A1C, blood, as % of total hemoglobin 5.9 % OF TOTAL HGB(H) <5.7 % [facility] 06/28/2021 us Dania Corral MD HISTORICAL/NON ORDERABLE LABS Fi nal Result [facility] [address] from Last 3 Months or Most Recently Relevant to Health Maintenance Additional Health Concerns Active Problems Noted Date Diagnosed Date Diet Management 10/18/2022 HBA1C Uncontrolled 10/18/2022 Med Adherence 10/18/2022 Patient is Inactive 10/18/2022 Wellness Concerns 10/18/[address] [facility] C3 Care Teams Rn Psychiatric Relationship Specialty Start Date End Date Dania Corral MD [address] [place] [id number] PCP - General Internal Medicine 03/30/22
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
--- OUTSIDE RECORDS SUMMARY | 2024-09-30 06:25 | XMS_ITS ---
Care Plan Created on: September 30, 2024 Lupillo Hernández : 1960 Sex: Male Author Organization [employer] Address [address] [place] [address] Care Team Providers Care School Teacher Name Role Phone Dania Corral MD Primary Care Provider [phone] Active Problems * This document contains information received from the source organization and may not represent a complete record from that organization. Problem Noted Date Diagnosed Date Hematuria 08/14/2024 [...] of connecting with pain medicine specialists in [place] for further management. Patient is awaiting a [...] headaches sometime. Reports already got referral for [facility] but he needs to call to schedule it now. Marshall reportedly present for paranoia, however Abilify should [...] headaches sometime. Reports already got referral for [facility] but he needs [...] headaches sometime. Reports already got referral for [facility] but he needs [...] headaches sometime. Reports already got referral for [facility] but he needs [...] as he would like it done at [facility]. - Antidepressant as [...] to hydrate. Patient agreed. Sent info-sheet in [place] as well via [employer]. Patient started therapy outside of . Patient [...] Patient has an upcoming appointment with a [place]speaking doctor at the pain specialist's office - Staff to conduct phone check-in in 3 weeks - Refill medication if needed after 3 weeks Assessment & Plan (01/10/2024 1:43 PM EDT): - Patient reports pain on the left side, which has been bothering them for three months. - Last saw pain specialist at [facility] approximately five months ago. - Patient mentions pain in this side, this side, here, here indicating left side. - Plan: Submit referral for a pain specialist in [place]. Have watch case polisher assist with connecting the patient to a [...] Sober - Ongoing Vivitrol through clinic in [facility] Assessment & Plan (08/04/2024 8:33 AM EDT): - Sober - Ongoing Vivitrol through clinic in [facility] Assessment & Plan (07/08/2024 2:13 PM EST): - Sober - Ongoing Vivitrol through clinic in [facility] Assessment & Plan (04/18/2024 8:56 AM EST): - Sober - Ongoing Vivitrol through clinic in [facility] Assessment & Plan (02/25/2024 2:27 PM EDT): - Sober - Ongoing Vivitrol through clinic in [facility] Assessment & Plan (11/23/2023 10:59 AM EDT): - Sober - Ongoing Vivitrol through clinic in [facility] Assessment & Plan (08/23/2023 10:05 AM EDT): - Sober - Ongoing Vivitrol through clinic in [facility] Assessment & Plan (06/22/2023 3:22 PM EST): - Sober - Ongoing Vivitrol through clinic in [facility] Assessment & Plan (04/17/2023 10:38 AM EST): - Sober - Ongoing Vivitrol through clinic in [facility] Assessment & Plan (03/20/2023 9:49 AM EDT): - Sober - Ongoing Vivitrol through clinic in [facility] Assessment & Plan (02/20/2023 9:21 AM EDT): - Sober - Ongoing Vivitrol through clinic in [facility] Assessment & Plan (01/23/2023 10:22 AM EDT): - Sober - Ongoing Vivitrol through clinic in [facility] Assessment & Plan (12/26/2022 9:08 AM EDT): - Sober - Ongoing Vivitrol through clinic in [facility] Assessment & Plan (09/24/2022 2:12 PM EDT): - Sober - Ongoing Vivitrol through clinic in [facility] Assessment & Plan (07/23/2022 12:09 PM EST): - Sober - Ongoing Vivitrol through clinic in [facility] Assessment & Plan (06/14/2022 9:42 AM EST): - Sober - Ongoing Vivitrol through clinic in [facility] 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 Pt looking into a clinic in [place] as well - Encourage to try group [...] do telehealth intake but not heard back. Lea there may be a therapist in [place] taking patients so plans to look into this as well. Encouraging to find therapist rather than change medications as most likely get the most benefit from having a therapist at this time. Currently, there are no [place]speaking therapists at [facility] but patient is formally on the wait list. - Continue Zoloft 200mg - Aware patient is on amitriptyline from PCP and at increased risk of serotonin syndrome but has been on this agent for decades without issues, reviewed signs and symptoms of SS and to seek immediate medical attention if concerned (particularly during cross-taper) - On waitlist for new [place]speaking therapist at , provided contact information for Eduardo Quesada and encouraged to try for now. Pt looking into a clinic in [place] as well - Encourage to try group therapy to socialize more Assessment & Plan (12/27/2022 11:16 AM EDT): Mood varies. Periods of low mood in setting of loneliness. Does reflect felt better when had therapist. Provided contact information for [facility] which provides therapy and substance use treatment in [place], including individual and group therapy. Encouraging to [...] during cross-taper) - On waitlist for new [place]speaking therapist at , provided contact information for Eduardo Mezanza and encouraged to try for now - [...] Reports stable although does feel isolated. Considering [place]speaking group therapy but the one he asked [...] who runs a substance use group in [place] and willing to consider joining it although [...] Discuss barriers to activity with patient. Update [facility] - Annual Optometry apointment A ddress Appointment Scheduling Wellness - Podiatry DM foot exam Q 6 months Address Appointment Scheduling Wellness - Dental check up Q 6 months Ad dress Appointment Scheduling
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
--- OUTSIDE RECORDS SUMMARY | 2024-09-30 06:25 | XMS_ITS | Patient Health Record ---
Author Organization [facility] Address [address] [place], [place] [id number] Care Team Providers Care Naval Marine Engineer Name Role Phone Dr. Chris Cortes Primary Care Provider Unavailable Chidi Irene Unavailable [phone] Reason For Referral No Information Medications Medication [...] 4 times a day prn 07/17/2012 Active Immunizations Vaccine Route Administration Date Status Comme nts PPD negative Unknown 03/17/2010 Administered Hepatitis A Unknown 03/17/2010 Administered Hepatitis A Unknown 10/05/2009 Administered Hepatitis B (20 or more) Unknown 10/05/2004 Administered Hepatitis B (20 or more) Unknown 11/11/2004 Administered Hepatitis B (20 or more) Unknown 02/24/2010 Administered Influenza: Declined Unknown 07/11/2010 Administered PPD planted ID Intradermal 10/10/2010 Administered PPD negative ID Intradermal 10/13/2010 Administered 0mm, 0 induration PPD planted Unknown 09/12/2011 Administered Td offered and declined Unknown 09/12/2011 Administered Problems Problem Type SNOMED Code ICD Code Onset Dates Problem Status W/U Status Risk Notes Problem Obesity (057614352) Obesity, BMI 30-39.9 (278.00) Active confirmed Problem Opioid abuse (1933071) Opioid abuse, unspecified (305.50) Active confirmed Problem Cocaine abuse (29245328) Cocaine abuse, unspecified (305.60) Active confirmed Problem Myopia (26470186) Myopia (367.1) Active confirmed Problem Viral hepatitis type C (04773723) Hepatitis C without hepatic coma, not otherwise specified (070.70) Active confirmed Problem Mixed anxiety and depressive disorder (652274065) Depression with anxiety (300.4) Active confirmed Problem Body mass index 30+ - obesity (279931978) BMI 30.0-30.9,ADULT (V85.30) Active confirmed Plan Of Treatment Pending Test Test Name Order Date ECG/EKG-Electrocardiogram 07/17/2012 HIV 07/17/2012 Hep C Antibody - [facility] 07/17/2012 UA (w/Reflex to Culture) 07/17/2012 Insurance Providers Payer Name Payer Address Payer Phone Subscriber Number Group Number Insured Name Patient Relationship to Insured Coverage Start Date Coverage End Date [place] [address] [place] [address] [phone] [id number] Lupillo Hernández Self - patient is the insured [facility] Dental Program [address] [place] [address] [phone] [id number] Edgar Lupillo Self - patient is the insured Medical [...] and back 1983 Hospitalization History Reason Date(Month/Year) [place] [facility] 2006 [facility] at [facility] [address] [id number]
--- OUTSIDE RECORDS SUMMARY | 2024-09-30 06:25 | XMS_ITS | Encounter Summary ---
Author Organization [facility] Address [address] [place] [address] [address] [place] [address] Care Team Providers Care Twister Hand Name Role Phone Dania Corral MD Primary Care Provider [phone] Marian Lazo RN Unavailable Reason for Visit * Reason Comments Med Refill Encounter Details Date Type Department Care Team ([facility] Contact Info) Description 06/30/2022 Refill [facility] [address] [place] [address] Dania Corral MD [address] [place] [address] Type 2 diabetes mellitus without complication, without long-term current use of insulin ([facility]); Arthralgia of both lower legs Social History [...] Description 10/01/2024 2:20 PM EDT Telemedicine [facility] [address] [address] Dung Crabtree MD [address] [place] [address] 10/17/2024 2:20 PM EDT Office Visit [facility] [address] [place] [phone] Dania Corral MD [address] [place] [phone] documented as of this encounter Visit Diagnoses Diagnosis Type 2 diabetes mellitus without complication, without long-term current use of insulin ([facility]) Arthralgia of both lower legs documented in this encounter Care Teams Twister Hand Relationship Specialty Start Date End Date Dania Corral MD [address] [place] [phone] PCP - General Internal Medicine 03/30/22 Marian Lazo, RAYMUNDO Registered Nurse Family Medicine 02/05/23 05/07/23 documented as of this encounter
== END 2024-09-30 06:21 | disposition home or self-care (01) ==
LOC: CF 06:20
PROVIDERS: Visit Provider Anesthesiology
DX: M54.16 Radiculopathy, lumbar region (principal)
CPT/HCPCS: 64493; J2003; J3301; Q9967

== ENCOUNTER 2024-09-30 08:56 | Outpatient (AMB) | payer MEDICAID, SELFPAY ==
[2024-09-30 09:04] VITALS: BP 102/62; PULSE 57; O2SAT 99
--- NOTE | 2024-09-30 09:04 | MHC.OFFVIS ---
Vital Signs 09/30/24 09:04 09/30/24 09:34 Height 5 ft 6 in BP 102/62 110/77 Blood Pressure Location Rt brachial Rt brachial Position Sitting Sitting Pulse 57 54 Pulse Source Pulse Oximeter Pulse Oximeter Pulse Oximetry (%) 99 97 Oxygen Delivery Method Room Air Room Air Intake Visit Reasons: BILATERAL L4, L5 TFESI Allergies No Known Allergies Allergy (Verified 09/30/24 09:05) PFSH Social History (Updated 08/04/24 @ 13:09 by CADENCE Brady) Substance Use Type: Heroin Physical Exam Vital Signs: Last Vital Signs Pulse 54 09/30/24 09:34 BP 110/77 09/30/24 09:34 Pulse Ox 97 09/30/24 09:34 Oxygen Delivery Method Room Air 09/30/24 09:34 Assessment & Plan Assessment & Plan (1) Radiculopathy, lumbar region: Code(s): M54.16 - Radiculopathy, lumbar region Category: Medical Plan Transforaminal L4-L5 bilateral epidural steroid injection Informed consent was thoroughly explained to the patient before the procedure. The risks were delineated as bleeding infection peripheral nerve damage spinal cord damage and headache. ? The patient came to the operating room.? He was positioned prone on operating table with a pillow under his abdomen.? Time-out was performed delineating correct site and side of the procedure, nature of the injection, name and date of of the patient. The lower back of the patient was prepped with ChloraPrep and draped with sterile utility towels.? C-arm was brought over the operating field and sq picture of L4 vertebra were demonstrated on the screen.? The right side was chosen 1st as the side of the injection.? Tilting machine ipsilateral to the right at the level of L5 1st the most prominent picture of the right pedicle was obtained on the screen.? 3 mm below the level of the lowest point of the pedicle projection to the skin small amount of lidocaine 1% 2 cc was injected to anesthetize the skin.? After that 5 in 22 gauge Quincke point needle was inserted through the skin wheal and was advanced to were the L4- L5 foramina on anterior posterior , lateral and oblique views intermittently.? When tip of the needle entered foramina projection on AP view injection of the contrast was performed demonstrating epidural and perineural spread of the contrast.? On the lateral view contrast was spread in the epidural fashion. After that injection of the treatment medicine 4 cc of lidocaine 1% mixed with Kenalog 40 mg was injected into the foramina.? Injection of the contrast and injection of the treatment medicine was observed live on the screen.? No intrathecal and no intravascular spread of the contrast was noted. After that the procedure was performed in the mirroring fashion onL4- L5 level on the left Upon completion of the procedure sterile Band-Aids were applied. Patient tolerated procedure well he was taken outside of the operating room where he recovered uneventfully.? He went home without immediate complications. Orders: Orders FL guidance in treatment room Today M54.16 - Radiculopathy, lumbar region Coding Level of Care Code Procedure Only Diagnoses Radiculopathy, lumbar region M54.16
--- OUTSIDE RECORDS SUMMARY | 2024-09-30 09:33 | XMS_ITS | Encounter Summary ---
Author Organization [facility] Address [address] [place] [address] Care Team Providers Care Database Designer Name Role Phone Physician, No Pcp Primary Care Provider Unavaila ble Encounter Details Date Type Department Care Team (Late st Contact Info) Description 08/06/2024 Lab Requisition [facility] [address] [facility] [place] [phone] Bebeto Carbajal MD [address] [place] [address] Urinary tract infection, site not specified Social [...] reflex microscopic (08/06/2024 9:59 AM EDT) Specific [place] Urine 1.018 1.003 - 1.030 LAB URINALYSIS - AUTOMATED METHOD 08/06/2024 2:39 PM [facility] pH, Urine 6.5 5.0 - 8.0 pH LAB URINALYSIS - AUTOMATED METHOD 08/06/2024 2:39 PM [facility] Leukocytes, Urine Small(A) Negative LAB URINALYSIS - AUTOMATED METHOD 08/06/2024 2:39 PM [facility] Nitrite, Urine Negative Negative LAB URINALYSIS - AUTOMATED METHOD 08/06/2024 2:39 PM [facility] Protein, Urine Negative <=Trace mg/dL LAB URINALYSIS - AUTOMATED METHOD 08/06/2024 2:39 PM [facility] Glucose, Urine Negative Negative mg/dL LAB URINALYSIS - AUTOMATED METHOD 08/06/2024 2:39 PM [facility] Ketones, Urine Negative Negative mg/dL LAB URINALYSIS - AUTOMATED METHOD 08/06/2024 2:39 PM [facility] Urobilinogen, Urine 0.2 0.2 - 1.0 mg/dL LAB URINALYSIS - AUTOMATED METHOD 08/06/2024 2:39 PM [facility] Bilirubin, Urine Negative Negative LAB URINALYSIS - AUTOMATED METHOD 08/06/2024 2:39 PM [facility] Blood, Urine Large(A) Negative LAB URINALYSIS - AUTOMATED METHOD 08/06/2024 2:39 PM [facility] RBC, Urine 7.1(H) 0 - 4 /HPF LAB URINALYSIS - AUTOMATED METHOD 08/06/2024 2:39 PM [facility] WBC, Urine 4.6(H) 0 - 4 /HPF LAB URINALYSIS - AUTOMATED METHOD 08/06/2024 2:39 PM EDT [facility] Squamous Epithelial, Urine 28 0 - 60 /LPF LAB URINALYSIS - AUTOMATED METHOD 08/06/2024 2:39 PM EDT [facility] Bacteria, Urine Negative Negative /HPF LAB URINALYSIS - AUTOMATED METHOD 08/06/2024 2:39 PM EDT [facility] Hyaline Casts, Urine 0.4 0 - 3 /LPF LAB URINALYSIS - AUTOMATED METHOD 08/06/2024 2:39 PM EDT [facility] Urine Urine specimen obtained by clean catch procedure / Unknown 08/06/2024 9:59 AM EDT 08/06/2024 1:35 PM EDT us Bebeto Carbajal MD LAB URINE ORDERABLES Final Resul t Performing Organization Address City/[facility]/ZIP Co de Phone Number [facility] [address] [place] [address], [place] [phone] * Culture urine (08/06/2024 9:59 AM EDT) Culture, Urine No growth 08/07/2024 10:39 AM EDT [facility] Urine Urine specimen obtained by clean catch procedure / Unknown 08/06/2024 9:59 AM EDT 08/06/2024 1:35 PM EDT us Bebeto Carbajal MD LAB MICROBIOLOGY - GENERAL ORDER LESVIA Final Result [facility] [address] [place] [address], [place] [phone] documented in this encounter Visit Diagnoses Diagnosis Urinary tract infection, site not specified documented in this encounter Care Teams Database Designer Relationship Specialty Start Date End Date Physician, No Pcp PCP - General 08/15/24 documented as of this encounter
--- OUTSIDE RECORDS SUMMARY | 2024-09-30 09:33 | XMS_ITS | Encounter Summary ---
Author Organization [employer] Address [address] [place] [address] 7 [place] [address] Care Team Providers Care Health And Safety Coordinator Name Role Phone Dania Corral MD Primary Care Provider [phone] Marian Lazo RN Unavailable Reason for Visit * Reason Comments Med Refill Encounter Details Date Type Department Care Team ([facility] Contact Info) Description 06/30/2022 Refill [facility] [address] [place] [address] Dania Corral MD [address] [place] [address] Type 2 diabetes mellitus without complication, without long-term current use of insulin ([facility]); Arthralgia of both lower legs Social History [...] Description 10/01/2024 2:20 PM EDT Telemedicine [facility] [address] [address] Dung Crabtree MD [address] [place] [phone] 10/17/2024 2:20 PM EDT Office Visit [facility] [address] [place] [phone] Dania Corral MD [address] [place] [phone] documented as of this encounter Visit Diagnoses Diagnosis Type 2 diabetes mellitus without complication, without long-term current use of insulin ([facility]) Arthralgia of both lower legs documented in this encounter Care Teams Health And Safety Coordinator Relationship Specialty Start Date End Date Dania Corral MD [address] [place] [phone] PCP - General Internal Medicine 03/30/22 Marian Lazo, RAYMUNDO Registered Nurse Family Medicine 02/05/23 05/07/23 documented as of this encounter
--- OUTSIDE RECORDS SUMMARY | 2024-09-30 09:33 | XMS_ITS | Encounter Summary ---
Author Organization [facility] Address [address] [place] [address] Care Team Providers Care Specialist Physicians Name Role Phone Physician, No Pcp Primary Care Provider Unavaila ble Encounter Details Date Type Department Care Team (Late st Contact Info) Description 08/29/2024 Lab Requisition [facility] - Main Lab [address] [facility] [place] [address] Maximo Enrique MD [address] [place] [phone] Urinary tract infection, site not specified; Calculus [...] reflex microscopic (08/29/2024 9:52 AM EDT) Specific [place] Urine 1.019 1.003 - 1.030 LAB URINALYSIS [...] - AUTOMATED METHOD 08/29/2024 12:18 PM EDT [facility] Bilirubin, Urine Negative [...] PM [facility] Squamous Epithelial, Urine 5 0 - 60 /LPF LAB URINALYSIS - AUTOMATED METHOD 08/29/2024 12:18 PM [facility] Bacteria, Urine Negative Negative /HPF LAB URINALYSIS - AUTOMATED METHOD 08/29/2024 12:18 PM [facility] Hyaline Casts, Urine 6.8(H) 0 - 3 /LPF LAB URINALYSIS - AUTOMATED METHOD 08/29/2024 12:18 PM [facility] Urine Urine specimen obtained by clean catch procedure / Unknown 08/29/2024 9:52 AM EDT 08/29/2024 11:24 AM EDT us Maximo Enrique MD LAB URINE ORDERABLES Final Res ult [facility] [address] [place] [address], [place] [phone] * Prothrombin time with INR (08/29/2024 9:52 AM EDT) Protime 12.8 10.6 - 13.9 sec LAB COAGULATION METHOD 08/29/2024 12:12 PM EDT [facility] INR 1.0 LAB COAGULATION METHOD 08/29/2024 12:12 PM EDT [facility] Blood Venous blood specimen / Unknown 08/29/2024 9:52 AM EDT 08/29/2024 11:24 AM EDT Maximo Enrique MD LAB BLOOD ORDERABLES Final Res ult [facility] [address] [place] [address], * (ABNORMAL) Complete blood count (08/29/2024 9:52 AM EDT) WBC 8.1 4.8 - 10.8 K/mcL LAB HEMETOLOGY METHOD 08/29/2024 12:37 PM EDT [facility] RBC 4.50 4.50 - 5.50 [facility] LAB HEMETOLOGY METHOD 08/29/2024 12:37 PM EDT [facility] Hemoglobin 12.8(L) 13.5 - 17.5 g/dL LAB HEMETOLOGY METHOD 08/29/2024 12:37 PM EDT [facility] Hematocrit 38.6(L) 42.0 - 54.0 % LAB HEMETOLOGY METHOD 08/29/2024 12:37 PM EDT [facility] MCV 86.7 79.0 - 98.0 FL LAB HEMETOLOGY METHOD 08/29/2024 12:37 PM EDT [facility] MCH 28.8 27.0 - 32.0 pcg LAB HEMETOLOGY METHOD 08/29/2024 12:37 PM EDT [facility] MCHC 33.2 32.0 - 37.0 g/dL LAB HEMETOLOGY METHOD 08/29/2024 12:[facility] RDW 14.1 11.0 - 15.0 % LAB HEMETOLOGY METHOD 08/29/2024 12:37 PM EDT [facility] Platelets 188 130 - 400 K/mcL LAB HEMETOLOGY METHOD 08/29/2024 12:37 PM EDT [facility] MPV 12.6(H) 7.0 - 11.0 FL LAB HEMETOLOGY METHOD 08/29/2024 12:37 PM EDT [facility] NRBC 0.0 <1.0 % LAB HEMETOLOGY METHOD 08/29/2024 12:37 PM EDT [facility] NRBC Absolute 0.00 <0.10 K/mcL LAB HEMETOLOGY METHOD 08/29/2024 12:37 PM EDT [facility] Blood Venous blood specimen / Unknown 08/29/2024 9:52 AM EDT 08/29/2024 11:24 AM EDT us Maximo Enrique MD LAB BLOOD ORDERABLES Final Res ult Performing Organization Address City/[facility]/ZIP Co de Phone Number [facility] [address] [place] [address], [place] [phone] * Culture urine (08/29/2024 9:52 AM EDT) Culture, Urine No growth 08/30/2024 10:46 AM EDT [facility] Urine Urine specimen obtained by clean catch procedure / Unknown 08/29/2024 9:52 AM EDT 08/29/2024 11:24 AM EDT us Maximo Enrique MD LAB MICROBIOLOGY - GENERAL ORD ERABLES Final Result [facility] [address] [place] [address], [place] [phone] documented in this encounter Visit Diagnoses Diagnosis Urinary tract infection, site not specified Calculus of kidney documented in this encounter Care Teams Specialist Physicians Relationship Specialty Start Date End Date Physician, No Pcp PCP - General 08/15/24 documented as of this encounter
--- OUTSIDE RECORDS SUMMARY | 2024-09-30 09:33 | XMS_ITS ---
Care Plan Created on: September 30, 2024 Lupillo Hernández : 1960 Sex: Male Author Organization [email or web address] Address [address] [place] [address] Care Team Providers Care Rip Tailer Name Role Phone Dania Corral MD Primary Care Provider [phone] Active Problems * This document contains information [...] of connecting with pain medicine specialists in [place] for further management. Patient is awaiting a [...] headaches sometime. Reports already got referral for [facility] but he needs to call to schedule [...] headaches sometime. Reports already got referral for [facility] but he needs to call to schedule [...] headaches sometime. Reports already got referral for [facility] but he needs to call to schedule [...] headaches sometime. Reports already got referral for [facility] but he needs to call to schedule [...] as he would like it done at [facility]. - Antidepressant as per Depression - Continue [...] to hydrate. Patient agreed. Sent info-sheet in [place] as well via [employer]. Patient started therapy outside of . Patient [...] Patient has an upcoming appointment with a [place]-speaking doctor at the pain specialist's office - Staff to conduct phone check-in in 3 weeks - Refill medication if needed after 3 weeks Assessment & Plan (01/10/2024 1:43 PM EDT): - Patient reports pain on the left side, which has been bothering them for three months. - Last saw pain specialist at [facility] approximately five months ago. - Patient mentions pain in this side, this side, here, here indicating left side. - Plan: Submit referral for a pain specialist in [place]. Have case management assistant assist with connecting the patient to a [...] Sober - Ongoing Vivitrol through clinic in [facility] Assessment & Plan (08/04/2024 8:33 AM EDT): - Sober - Ongoing Vivitrol through clinic in [facility] Assessment & Plan (07/08/2024 2:13 PM EST): - Sober - Ongoing Vivitrol through clinic in [facility] Assessment & Plan (04/18/2024 8:56 AM EST): - Sober - Ongoing Vivitrol through clinic in [facility] Assessment & Plan (02/25/2024 2:27 PM EDT): - Sober - Ongoing Vivitrol through clinic in [facility] Assessment & Plan (11/23/2023 10:59 AM EDT): - Sober - Ongoing Vivitrol through clinic in [facility] Assessment & Plan (08/23/2023 10:05 AM EDT): - Sober - Ongoing Vivitrol through clinic in [facility] Assessment & Plan (06/22/2023 3:22 PM EST): - Sober - Ongoing Vivitrol through clinic in [facility] Assessment & Plan (04/17/2023 10:38 AM EST): - Sober - Ongoing Vivitrol through clinic in [facility] Assessment & Plan (03/20/2023 9:49 AM EDT): - Sober - Ongoing Vivitrol through clinic in [facility] Assessment & Plan (02/20/2023 9:21 AM EDT): - Sober - Ongoing Vivitrol through clinic in [facility] Assessment & Plan (01/23/2023 10:22 AM EDT): - Sober - Ongoing Vivitrol through clinic in [facility] Assessment & Plan (12/26/2022 9:08 AM EDT): - Sober - Ongoing Vivitrol through clinic in [facility] Assessment & Plan (09/24/2022 2:12 PM EDT): - Sober - Ongoing Vivitrol through clinic in [facility] Assessment & Plan (07/23/2022 12:09 PM EST): - Sober - Ongoing Vivitrol through clinic in [facility] Assessment & Plan (06/14/2022 9:42 AM EST): - Sober - Ongoing Vivitrol through clinic in [facility] 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 Pt looking into a clinic in [place] as well - Encourage to try group [...] do telehealth intake but not heard back. Simpson there may be a therapist in [place] taking patients so plans to look into this as well. Encouraging to find therapist rather than change medications as most likely get the most benefit from having a therapist at this time. Currently, there are no [place]ian-speaking therapists at [facility] but patient is formally on the wait list. - Continue Zoloft 200mg - Aware patient is on amitriptyline from PCP and at increased risk of serotonin syndrome but has been on this agent for decades without issues, reviewed signs and symptoms of SS and to seek immediate medical attention if concerned (particularly during cross-taper) - On waitlist for new [place]-speaking therapist at , provided contact information for Eduardo Quesada and encouraged to try for now. Pt looking into a clinic in [place] as well - Encourage to try group therapy to socialize more Assessment & Plan (12/27/2022 11:16 AM EDT): Mood varies. Periods of low mood in setting of loneliness. Does reflect felt better when had therapist. Provided contact information for [facility]ardo Quesada which provides therapy and substance use treatment in [place], including individual and group therapy. Encouraging to [...] during cross-taper) - On waitlist for new [place]-speaking therapist at , provided contact information for [...] Reports stable although does feel isolated. Considering [place]speaking group therapy but the one he asked [...] who runs a substance use group in [place] and willing to consider joining it although [...] Discuss barriers to activity with patient. Update [facility] - Annual Optometry apointment A ddress Appointment Scheduling Wellness - Podiatry DM foot exam Q 6 months Address Appointment Scheduling Wellness - Dental check up Q 6 months Ad dress Appointment Scheduling
--- OUTSIDE RECORDS SUMMARY | 2024-09-30 09:33 | XMS_ITS | Encounter Summary ---
Author Organization [facility] Address [address] [place] [address] Care Team Providers Care Tank Car Repairer Name Role Phone Physician, No Pcp Primary Care Provider Unavaila ble Encounter Details Date Type Department Care Team (Late st Contact Info) Description 08/06/2024 Lab Requisition [facility] - Main Lab [address] [facility] [place] [address] Maximo Enrique MD [address] [place] [phone] Family history of malignant neoplasm of prostate [...] LAB HEMETOLOGY METHOD 08/06/2024 2:15 PM EDT [facility] RBC 4.80 4.50 - 5.50 [...] EDT 08/06/2024 1:32 PM EDT us Maximo Enrique MD LAB BLOOD ORDERABLES Final Res ult [facility] [address] [place] [address], documented in this encounter Visit Diagnoses Diagnosis Family history of malignant neoplasm of prostate documented in this encounter Care Teams Tank Car Repairer Relationship Specialty Start Date End Date Physician, No Pcp PCP - General 08/15/24 documented as of this encounter
--- OUTSIDE RECORDS SUMMARY | 2024-09-30 09:33 | XMS_ITS | Clinical Summary ---
Author Organization [employer] Address [address] [facility] [address] [place] [address] Care Team Providers Care Document Imaging Manager Name Role Phone Dania Corral MD Primary Care Provider [phone] Allergies No known active allergies Medications * [...] of connecting with pain medicine specialists in [place] for further management. Patient is awaiting a [...] headaches sometime. Reports already got referral for [facility] but he needs to call to [...] headaches sometime. Reports already got referral for [facility] but he needs to call to [...] as he would like it done at [facility]. - Antidepressant as per Depression - [...] to hydrate. Patient agreed. Sent info-sheet in Guinean as well via [employer]. Patient started therapy outside of . Patient [...] Patient has an upcoming appointment with a Guinean-speaking doctor at the pain specialist's office - Staff to conduct phone check-in in 3 weeks - Refill medication if needed after 3 weeks Assessment & Plan (01/10/2024 1:43 PM EDT): - Patient reports pain on the left side, which has been bothering them for three months. - Last saw pain specialist at [facility] approximately five months ago. - Patient mentions pain in this side, this side, here, here indicating left side. - Plan: Submit referral for a pain specialist in [place]. Have family independence case manager assist with connecting the patient to a [...] Sober - Ongoing Vivitrol through clinic in [facility] Assessment & Plan (08/04/2024 8:33 AM EDT): - Sober - Ongoing Vivitrol through clinic in [facility] Assessment & Plan (07/08/2024 2:13 PM EST): - Sober - Ongoing Vivitrol through clinic in [facility] Assessment & Plan (04/18/2024 8:56 AM EST): - Sober - Ongoing Vivitrol through clinic in [facility] Assessment & Plan (02/25/2024 2:27 PM EDT): - Sober - Ongoing Vivitrol through clinic in [facility] Assessment & Plan (11/23/2023 10:59 AM EDT): - Sober - Ongoing Vivitrol through clinic in [facility] Assessment & Plan (08/23/2023 10:05 AM EDT): - Sober - Ongoing Vivitrol through clinic in [facility] Assessment & Plan (06/22/2023 3:22 PM EST): - Sober - Ongoing Vivitrol through clinic in [facility] Assessment & Plan (04/17/2023 10:38 AM EST): - Sober - Ongoing Vivitrol through clinic in [facility] Assessment & Plan (03/20/2023 9:49 AM EDT): - Sober - Ongoing Vivitrol through clinic in [facility] Assessment & Plan (02/20/2023 9:21 AM EDT): - Sober - Ongoing Vivitrol through clinic in [facility] Assessment & Plan (01/23/2023 10:22 AM EDT): - Sober - Ongoing Vivitrol through clinic in [facility] Assessment & Plan (12/26/2022 9:08 AM EDT): - Sober - Ongoing Vivitrol through clinic in [facility] Assessment & Plan (09/24/2022 2:12 PM EDT): - Sober - Ongoing Vivitrol through clinic in [facility] Assessment & Plan (07/23/2022 12:09 PM EST): - Sober - Ongoing Vivitrol through clinic in [facility] Assessment & Plan (06/14/2022 9:42 AM EST): - Sober - Ongoing Vivitrol through clinic in [facility] Esophageal varices 11/18/2019 Assessment & [...] used to this since his time in detention and can reflect there are ways he [...] during cross-taper) - On waitlist for new Guinean-speaking therapist at , provided contact information for Eduardo Quesada and encouraged to try for now. Pt looking into a clinic in [place] as well - Encourage to try group [...] do telehealth intake but not heard back. Green there may be a therapist in [place] taking patients so plans to look into this as well. Encouraging to find therapist rather than change medications as most likely get the most benefit from having a therapist at this time. Currently, there are no Guinean-speaking therapists at [facility] but patient is formally on the wait list. - Continue Zoloft 200mg - Aware patient is on amitriptyline from PCP and at increased risk of serotonin syndrome but has been on this agent for decades without issues, reviewed signs and symptoms of SS and to seek immediate medical attention if concerned (particularly during cross-taper) - On waitlist for new Guinean-speaking therapist at , provided contact information for Eduardo Quesada and encouraged to try for now. Pt looking into a clinic in [place] as well - Encourage to try group therapy to socialize more Assessment & Plan (12/27/2022 11:16 AM EDT): Mood varies. Periods of low mood in setting of loneliness. Does reflect felt better when had therapist. Provided contact information for Eduardo Quesada which provides therapy and substance use treatment in Guinean, including individual and group therapy. Encouraging to [...] during cross-taper) - On waitlist for new Guinean-speaking therapist at , provided contact information for [...] Reports stable although does feel isolated. Considering greek-speaking group therapy but the one he asked [...] who runs a substance use group in Guinean and willing to consider joining it although [...] 09/23/2024 Travel 09/22/2024 Population Health Risk Score [facility] (C[facility]) Department [address] [place] [phone] Provider, Population Health Generic 09/02/2024 3:20 PM EDT Telemedicine [address] [address] Dung Crabtree MD Med Management 08/26/2024 Travel 08/20/[address] [address] Dania Corral MD Type 2 diabetes mellitus without complication, without long-term current use of insulin (CMS/HCC) 08/14/2024 2:20 PM EDT Telemedicine [address] [address] Dania Corral MD Hematuria, unspecified type (Primary Dx); Nephrolithiasis; Constipation, unspecified constipation type 08/07/2024 Travel 08/05/2024 9:40 AM EDT Telemedicine [address] [address] Dung Crabtree MD Med Management 08/05/[address] [address] Dania Corral MD Type 2 diabetes mellitus without complication, without long-term current use of insulin (CMS/HCC) 08/05/[address] [address] Dung Crabtree MD Post traumatic stress disorder; Major depressive disorder, recurrent severe without psychotic features (CMS/HCC); Generalized anxiety disorder 07/30/2024 Telephone [facility] [address] [address] Dania Corral MD Care Coordination 07/29/2024 Travel 07/18/[address] [address] Dania Corral MD Care Coordination; Medication Question 07/17/2024 4:40 PM EST Telemedicine [facility] [place] [address] Dania Corral MD Major depressive disorder, recurrent severe without psychotic features (CMS/HCC) (Primary Dx); Post traumatic stress disorder; Arthralgia of both lower legs; Chronic bilateral low back pain with right-sided sciatica 07/10/2024 Travel 07/09/2024 8:20 AM EST Telemedicine [facility] [address] [place] [address] Dung Crabtree MD Med Management 07/09/2024 Telephone [facility] [address] [address] Dania Corral MD Care Coordination; Referral 07/09/2024 [...] Description 10/01/2024 2:20 PM EDT Telemedicine [facility] [address] [address] Dung Crabtree MD [address] [place] [phone] 10/17/2024 2:20 PM EDT Office Visit [facility] [address] [place] [address] Dania Corral MD [address] [place] [address] Health Maintenance Due Date Last Done Comments [...] complication, without long-term current use of insulin ([facility]) LIPID PANEL WITH REFLEX TO DIRECT LDL Routine 01/10/2024 1:44 PM EDT Hyperlipidemia, unspecified hyperlipidemia type Arthralgia of both lower legs Type 2 diabetes mellitus without complication, without long-term current use of insulin ([facility]) [facility] HISTORICAL MARCO A LAB RESULT Routine 06/28/2021 12:00 AM EST [facility] MARCO A LAB RESULT Routine 12/03/2019 10:12 AM EDT from Last 3 Months or Most Recently Relevant to Health Maintenance Results * (ABNORMAL) Lipid Panel with Reflex to Direct LDL (01/10/2024 1:44 PM EDT) Cholesterol, Total 131 <200 mg/dL [employer] [place] [employer] HDL Cholesterol 34(L) > OR = 40 mg/dL [employer] [place] [employer] Triglycerides 172(H) <150 mg/dL [employer] [place] [employer] LDL Cholesterol 72 mg/dL [facility] [place] [employer] Comment: Reference range: <100 Desirable range <100 mg/dL for primary prevention; ?? <70 mg/dL for patients with CHD or diabetic patients with > or = 2 CHD risk factors. LDL-C is now calculated using the Joselin calculation, which is a validated novel method providing better accuracy than the Friedewald equation in the estimation of LDL-C. Chris CLEMENTE et al. DIPESH. 2013;310(19): 4888-5199 (http://education.Zumper/faq/RHZ798) Chol/HDLC Ratio 3.9 <5.0 (calc) [employer] Non-HDL Cholesterol 97 <130 mg/dL [employer] Comment: For patients with diabetes plus 1 major ASCVD risk factor, treating to a non-HDL-C goal of <100 mg/dL (LDL-C of <70 mg/dL) is considered a therapeutic option. Blood 01/10/2024 1:44 PM EDT 01/10/2024 1:44 PM EDT Dania Corral MD LAB BLOOD ORDERABLES Final Resul t [facility] [address] [place] [address] [employer] [address] [place] [address] * (ABNORMAL) Hemoglobin A1c with Calculated Mean Plasma Glucose (MPG) (01/10/2024 1:44 PM EDT) Hemoglobin A1c 5.7(H) <5.7 % of total Hgb [employer] Comment: For someone without known diabetes, a [...] children. Mean Plasma Glucose 126 mg/dL (calc) [employer] Comment: ? This test was performed on the Kristi nacho c503 platform. Effective 07/30/23, a change in test platforms from the [employer] to the Kristi nacho c503 may have shifted HbA1c results compared to historical results. Based on laboratory validation testing conducted at [facility], the Kristi platform relative to the Brewer [...] BLOOD ORDERABLES Final Resul t [facility] [address], [place] [address] [employer] [facility] [address] [place] [address] * (ABNORMAL) HISTORICAL MARCO A LAB RESULT (06/28/2021 12:00 AM EST) Only the most recent of2 resultswithin the time period is included. [facility] Signature cholesterol, serum 191 <200 mg/dL [facility] [...] hepatitis C antibody, serum REACTIVE(A) NON-REAC TIVE [facility] hepatitis C comment 27.90(H) <1.00 [facility] vitamin D 25-hydroxy, serum 11(L) 30 - 100 ng/mL [facility] hemoglobin A1C, blood, as % of total hemoglobin 5.9 % OF TOTAL HGB(H) <5.7 % [facility] 06/28/2021 us Dania Corral MD HISTORICAL/NON ORDERABLE LABS Fi nal Result [facility] [address] from Last 3 Months or Most Recently Relevant to Health Maintenance Additional Health Concerns Active Problems Noted Date Diagnosed Date Diet Management 10/18/2022 HBA1C Uncontrolled 10/18/2022 Med Adherence 10/18/2022 Patient is Inactive 10/18/2022 Wellness Concerns 10/18/2022 Insurance [facility] C3 Care Teams Document Imaging Manager Relationship Specialty Start Date End Date Dania Corral MD [address] [place] [phone] PCP - General Internal Medicine 03/30/22
--- OUTSIDE RECORDS SUMMARY | 2024-09-30 09:33 | XMS_ITS ---
Author Organization [employer] Address [address] [place] [address] [place], [place] [address] Care Team Providers Care Cloth Dye Range Operator Name Role Phone Dania Corral MD Primary Care Provider [phone] High Risk Care Management Status:Enrolled (Active) Start date:09/22/2022 Enrollment date:10/17/2022 Enrollment reason:Identified used clinical data Case Team Name Relationship Phone Aleta Felix RN Registered Nurse(Responsible Staff) [phone] Continued Care and Services Coordination
--- OUTSIDE RECORDS SUMMARY | 2024-09-30 09:33 | XMS_ITS | Clinical Summary ---
Author Organization [facility] Address [address] [place] [address] Phone Care Team Providers Care Chief Nurse Name Role Phone Physician, No Pcp Primary [...] EDT - 09/12/2024 12:00 PM EDT Surgery [facility] [place] [address] [place] [phone] Bebeto Carbajal MD ESWL [[id number] (CPT??)] 09/12/2024 11:07 AM EDT Anesthesia Event [facility] [place] [address] [place] [phone] Zeyad Cerna DO Spencer, Mark A, MD 09/12/2024 9:13 AM EDT - 09/12/2024 12:37 PM EDT Hospital Encounter [facility] [place] [address] [place] [phone] Bebeto Carbajal MD Discharge Disposition: Home or Self Care 08/29/2024 Lab Requisition [facility] Lab [address] [facility] [place] [address] Maximo Enrique MD Urinary tract infection, site not specified; Calculus of kidney 08/15/2024 10:41 AM EDT Anesthesia Event [facility] [place] [address] [place] [phone] Zeyad Cerna DO 08/15/2024 10:30 AM EDT - 08/15/2024 11:15 AM EDT Surgery [facility] OR [address] [place] [phone] Bebeto Carbajal MD ESWL [[id number] (CPT??)] 08/15/2024 8:38 AM EDT - 08/15/2024 12:06 PM EDT Hospital Encounter [facility] [place] [address] [place] [phone] Bebeto Carbajal MD Discharge Disposition: Home or Self Care 08/06/2024 Lab Requisition [facility] Lab [address] [place] [address] Bebeto Carbajal MD Urinary tract infection, site not specified 08/06/2024 Lab Requisition [facility] Lab [address] [place] [address] Maximo Enrique MD Family history [...] Procedure Name Priority Date/Time Associated Diagnosis Comments ID LITHOTRIPSY EXTRACORPOREAL SHOCK WAVE 09/12/2024 11:10 AM [...] infection, site not specified Calculus of kidney ID LITHOTRIPSY EXTRACORPOREAL SHOCK WAVE 08/15/2024 10:40 AM EDT Calculus of left kidney Case Notes [facility] POCT GLUCOSE BLOOD Routine 08/15/2024 8: 52 [...] GEMUSE QTc 443 ms GEMUSE P Wave [place] 30 degrees GEMUSE R [place] 8 degrees GEMUSE T [place] 48 degrees GEMUSE ECG Interpretation Normal sinus rhythm Possible Inferior infarct , age undetermined Abnormal ECG No previous ECGs available Confirmed by Lenora PEREIRA YUFENG ([id number]) on 09/13/2024 7:56:25 AM GEMUSE 09/12/2024 9:46 AM EDT 09/13/2024 7:56 AM EDT us Johnathon Greenwood MD ECG ORDERABLES Final Result Performing Organization Address City/[facility]/ZIP Co de Phone Number GEMUSE * (ABNORMAL) POCT Glucose, blood (09/12/2024 9:28 AM EDT) Only the most recent of2 resultswithin the time period is included. Pathologist [facility] Glucose POCT 107(H) 70 - 100 mg/dL 09/12/2024 9:29 AM EDT [facility] Blood Capillary blood specimen / Unknown 09/12/2024 9:28 AM EDT 09/12/2024 9:30 AM EDT Bebeto Carbajal MD LAB POINT OF CARE TE ST DOCKED DEVICE UNSOLICITED RESULTS Final Result Performing Organization Address [facility]/ZIP Co de Phone Number [facility] [address] [place] [address], [place] [phone] * (ABNORMAL) Urinalysis with reflex microscopic (08/29/2024 9:52 AM EDT) Only the most recent of2 resultswithin the time period is included. Specific [facility]ger Urine 1.019 1.003 - 1.030 LAB URINALYSIS - AUTOMATED METHOD 08/29/2024 12:18 PM [facility] pH, Urine 6.0 5.0 - 8.0 pH LAB URINALYSIS - AUTOMATED METHOD 08/29/2024 12:18 PM [facility] Leukocytes, Urine Moderate(A) Negative LAB URINALYSIS - AUTOMATED METHOD 08/29/2024 12:18 PM [facility] Nitrite, Urine Negative Negative LAB URINALYSIS - AUTOMATED METHOD 08/29/2024 12:18 PM [facility] Protein, Urine 100(A) <=Trace mg/dL LAB URINALYSIS - AUTOMATED METHOD 08/29/2024 12:18 PM [facility] Glucose, Urine Negative Negative mg/dL LAB URINALYSIS - AUTOMATED METHOD 08/29/2024 12:18 PM [facility] Ketones, Urine Trace(A) Negative mg/dL LAB URINALYSIS - AUTOMATED METHOD 08/29/2024 12:18 PM [facility] Urobilinogen , Urine 1.0 0.2 - 1.0 mg/dL LAB URINALYSIS - AUTOMATED METHOD 08/29/2024 12:18 PM [facility] Bilirubin, Urine Negative Negative LAB URINALYSIS - AUTOMATED METHOD 08/29/2024 12:18 PM [facility] Blood, Urine Large(A) Negative LAB URINALYSIS - AUTOMATED METHOD 08/29/2024 12:18 PM [facility] RBC, Urine 235.2(H) 0 - 4 /HPF LAB URINALYSIS - AUTOMATED METHOD 08/29/2024 12:18 PM [facility] WBC, Urine 142.2(H) 0 - 4 /HPF LAB URINALYSIS - AUTOMATED METHOD 08/29/2024 12:18 PM EDT [facility] Squamous Epithelial, Urine 5 0 - 60 /LPF LAB URINALYSIS - AUTOMATED METHOD 08/29/2024 12:18 PM EDT [facility] Bacteria, Urine Negative Negative /HPF LAB URINALYSIS - AUTOMATED METHOD 08/29/2024 12:18 PM EDT [facility] Hyaline Casts, Urine 6.8(H) 0 - 3 /LPF LAB URINALYSIS - AUTOMATED METHOD 08/29/2024 12:18 PM EDT [facility] Urine Urine specimen obtained by clean catch procedure / Unknown 08/29/2024 9:52 AM EDT 08/29/2024 11:24 AM EDT us Maximo Enrique MD LAB URINE ORDERABLES Final Res ult Performing Organization Address City/[facility]/ZIP Co de Phone Number [facility] [address] [place] [address], [place] [phone] * Prothrombin time with INR (08/29/2024 9:52 AM EDT) Protime 12.8 10.6 - 13.9 sec LAB COAGULATION METHOD 08/29/2024 12:12 PM EDT [facility] INR 1.0 LAB COAGULATION METHOD 08/29/2024 12:12 PM EDT [facility] Blood Venous blood specimen / Unknown 08/29/2024 9:52 AM EDT 08/29/2024 11:24 AM EDT us Maximo Enrique MD LAB BLOOD ORDERABLES Final Res ult Performing Organization Address [facility]/ZIP Co de Phone Number [facility] [address] [place] [address], [place] [phone] * (ABNORMAL) Complete blood count (08/29/2024 9:52 AM EDT) Only the most recent of2 resultswithin the time period is included. WBC 8.1 4.8 - 10.8 K/mcL LAB HEMETOLOGY METHOD 08/29/2024 12:37 PM [facility] RBC 4.50 4.50 - 5.50 M/mcL LAB HEMETOLOGY METHOD 08/[facility]24 [facility] Hemoglobin 12.8(L) 13.5 - 17.5 g/dL LAB HEMETOLOGY METHOD 08/29/2024 12:37 PM [facility] Hematocrit 38.6(L) 42.0 - 54.0 % LAB HEMETOLOGY METHOD 08/29/2024 12:37 PM [facility] MCV 86.7 79.0 - 98.0 FL LAB HEMETOLOGY METHOD 08/29/2024 12:37 PM [facility] MCH 28.8 27.0 - 32.0 pcg LAB HEMETOLOGY METHOD 08/29/2024 12:37 PM [facility] MCHC 33.2 32.0 - 37.0 g/dL LAB HEMETOLOGY METHOD 08/29/2024 12:37 PM [facility] RDW 14.1 11.0 - 15.0 % LAB HEMETOLOGY METHOD 08/29/2024 12:37 PM [facility] Platelets 188 130 - 400 K/mcL LAB HEMETOLOGY METHOD 08/29/2024 12:37 PM [facility] MPV 12.6(H) 7.0 - 11.0 FL LAB HEMETOLOGY METHOD 08/29/2024 12:37 PM [facility] NRBC 0.0 <1.0 % LAB HEMETOLOGY METHOD 08/29/2024 12:37 PM [facility] NRBC Absolute 0.00 <0.10 K/mcL LAB HEMETOLOGY METHOD 08/29/2024 12:37 PM EDT [facility] Blood Venous blood specimen / Unknown 08/29/2024 9:52 AM EDT 08/29/2024 11:24 AM EDT Maximo Enrique MD LAB BLOOD ORDERABLES Final Res ult Performing Organization Address [facility]/ZIP Co de Phone Number [facility] [address] [place] [address], [place] [phone] * Culture urine (08/29/2024 9:52 AM EDT) Only the most recent of2 resultswithin the time period is included. Culture, Urine No growth 08/30/2024 10:46 AM EDT [facility] Urine Urine specimen obtained by clean catch procedure / Unknown 08/29/2024 9:52 AM EDT 08/29/2024 11:24 AM EDT Maximo Enrique MD LAB MICROBIOLOGY - GENERAL ORD ERABLES Final Result Performing Organization Address [facility] Co de Phone Number [facility] [address] [place] [address], [place] [phone] from Last 3 Months Insurance [place] Care Teams Chief Nurse Relationship Specialty Start Date End Date Physician, No Pcp PCP - General 08/15/24
[2024-09-30 09:34] VITALS: BP 110/77; PULSE 54; O2SAT 97
== END 2024-09-30 09:35 | disposition home or self-care (01) ==
LOC: HO.PMCPRC 08:56
PROVIDERS: Visit Provider Anesthesiology
DX: M54.16 Radiculopathy, lumbar region (principal)
CPT/HCPCS: 64493

== ENCOUNTER 2024-10-22 13:00 | Outpatient (AMB) | payer MEDICAID, SELFPAY ==
--- NOTE | 2024-10-22 13:03 | A.OFFVIS_ITS ---
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 He is one month status post bilateral L4-5 transforaminal epidural steroid injection. Pain improved to an average of 2 out of 10 post-injection, reflecting an 80% reduction in pain intensity. The patient's leg pain persists due to metal implants from previous surgeries related to an accident, distinct from the spinal-related discomfort. He has experienced no adverse effects or complications from the recent steroid injection and reports no new symptoms. The improvement in pain levels has been significant following the intervention, with the patient expressing overall satisfaction with the outcome. - Onset and Timing: Chronic lower back pain with significant improvement post- epidural steroid injection one month ago. - Quality and Character: The pain has decreased to 2/10 following the procedure. - Primary Location: Lower back - Radiation: Persistent leg pain due to metal implants, not directly related to back issues. - Exacerbating Factors: Presence of metal implants in legs - Relieving Factors: Epidural steroid injection - Interference with Activities: Chronic pain management is necessary due to underlying conditions from past surgeries. - Affect: The patient reports satisfaction with the pain relief and exhibits no adverse emotional impact from pain. - Analgesia: Pain levels improved to 2/10 post-injection. No additional pain medications noted. - Adverse Effects: None reported post-injection. - Activities of Daily Living: No specific limitations reported post-injection; significant pain relief noted. - Aberrant Drug Related Behaviors: None reported or observed. [facility] Social History (Updated 08/04/24 @ 13:09 by CADENCE Brady) Substance Use Type: Heroin Review of Systems Const Details: - Musculoskeletal: Reports chronic lower back pain and leg pain - Neurological: Denies any new neurological deficits Physical Exam Vital Signs: Last Vital Signs Pulse 70 10/22/24 13:05 Resp 18 10/22/24 13:05 BP 99/57 L 10/22/24 13:05 Pulse Ox 98 10/22/24 13:05 Oxygen Delivery Method Room Air 05/28/25 13:05 General: awake, alert, oriented. Answers questions appropriately. Fully engaged in examination. Skin: warm, dry, intact HEENT: Normocephalic. Hearing intact. Cardiac: External chest normal in appearance. Respiratory: No cough, audible wheezing or stridor. Abdomen: without gross distension. MS: No obvious swelling or deformities. Able to transition from sit to stand unassisted. Ambulates with use of a cane Neurological: Oriented to person, place, time and situation. Thought process intact. No gait abnormalities appreciated. Psychiatric: Appropriate mood and affect. Good judgment and insight. Assessment & Plan Assessment & Plan (1) Radiculopathy, lumbar region: Code(s): M54.16 - Radiculopathy, lumbar region Category: Medical (2) Chronic pain syndrome: Code(s): G89.4 - Chronic pain syndrome Category: Medical Plan Patient reports 80% pain relief since the injection. In the event of a recurren ce, a repeat injection may be considered. Efforts are underway to obtain previous MRI results for a comprehensive assessment. The patient is advised to follow up with Dr. Branch to review these results and discuss further management options if needed. I discussed with the patient the significant improvement in pain levels following the bilateral L4-5 transforaminal epidural steroid injection, noting a reduction to 2/10. We reviewed the potential duration of pain relief, typically ranging for several months. The patient understands that if pain recurs, a repeat injection may be necessary. Additionally, I explained that we are awaiting previous MRI results from [facility] to gain further insight into his condition. The patient expressed understanding and agreement with the current management plan and is scheduled for a follow-up with Dr. Branch to review these results and any further treatment options. Patient was informed and verbally consented to the use of an ambient scribe for clinic note documentation during this visit. Patient Instructions: - Monitor pain levels and report any significant changes. - Understand that pain relief from the injection can last three to six months. - Follow up with Dr. Branch to review MRI results. - Return for further evaluation if pain worsens. - Contact the office if any new symptoms arise. Coding Level of Care Code Est Pt Level 3 (36271) Complex EM visit Add On G2211 Diagnoses Radiculopathy, lumbar region M54.16 Chronic pain syndrome G89.4
[2024-10-22 13:05] VITALS: BP 99/57; PULSE 70; RESP 18; O2SAT 98
--- OUTSIDE RECORDS SUMMARY | 2024-10-22 13:46 | XMS_ITS ---
Author Organization [employer] Address [address] [place] [address] [address], [place] [address] Care Team Providers Care Cable Stretcher And Tester Name Role Phone Dania Corral MD Primary Care Provider [phone] High Risk Care Management Status:Enrolled (Active) Start date:09/22/2022 Enrollment date:10/17/2022 Enrollment reason:Identified used clinical data Case Team Name Relationship Phone Aleta Felix RN(Responsible Staff) Registered Nurse [phone] Continued Care and Services Coordination
== END 2024-10-22 13:13 | disposition home or self-care (01) ==
LOC: HO.PMC 13:01
PROVIDERS: Visit Provider Registered Nurse Emergency
DX: M54.16 Radiculopathy, lumbar region (principal); G89.4 Chronic pain syndrome
CPT/HCPCS: 99213

== ENCOUNTER → 2024-10-22 13:00 | Outpatient (BNVA) | payer MEDICAID, SELFPAY | PROVIDERS: Visit Provider Registered Nurse Emergency | DX: M54.16 Radiculopathy, lumbar region (principal); G89.4 Chronic pain syndrome | CPT/HCPCS: 99212 ==

== ENCOUNTER 2024-11-20 09:07 | Outpatient (AMB) | payer MEDICAID, SELFPAY ==
[2024-11-20 09:43] VITALS: BP 108/69; PULSE 51; RESP 18; O2SAT 97; BMI 35.5
--- NOTE | 2024-11-20 09:43 | A.OFFVIS_ITS ---
Vital Signs 11/20/24 09:43 Height 5 ft 6 in Weight 220 lb BMI 35.5 BP 108/69 Blood Pressure Location Lt brachial Position Sitting Respiration 18 Pulse 51 Pulse Source Pulse Oximeter Pulse Oximetry (%) 97 Oxygen Delivery Method Room Air Intake Visit Reasons: MRI results [employer] Internship Required: Yes Allergies No Known Allergies Allergy (Verified 11/20/24 09:43) HPI Comments Details: The patient is a 64-year-old male presenting with chronic lower back pain and leg pain. He is one month status post bilateral L4-5 transforaminal epidural steroid injection. Pain improved to an average of 2 out of 10 post-injection, reflecting an 80% reduction in pain intensity. Mr. Hernández is 64 years old [place]dean-speaking gentleman who presents in my office for the follow-up after the procedure I performed on him in July of 2024. He received bilateral transforaminal epidural steroid injection. Reported significant pain alleviation more than 90%. Now his pain is [id number] he reports his pain today 4/10. He was sent for the MRI and results of the MRI dictated as below. There is nothing which would indicate surgical intervention. 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 I explained to the patient that since his pain is still moderate in nature he may choose to wait until the pain is more severe and give us a call to schedule another transforaminal epidural steroid injection as we did last time. Patient agreed.. [facility] Social History (Updated 08/04/24 @ 13:09 by CADENCE Brady) Substance Use Type: Heroin Review of Systems Const All systems reviewed & are unremarkable except as noted in HPI and below ENT Reports Normal hearing present Neuro Reports Normal hearing present, Denies Abnormal speech present, Denies confusion and Denies Sensory deficit (Neuro) Psych Denies confusion Physical Exam Vital Signs: Last Vital Signs Pulse 51 11/20/24 09:43 Resp 18 11/20/24 09:43 BP 108/69 11/20/24 09:43 Pulse Ox 97 11/20/24 09:43 Oxygen Delivery Method Room Air 11/20/24 09:43 BMI result Body Mass Index 35.5 Const General: no acute distress; No confusion Orientation/consciousness: patient oriented x3 and No confusion Eyes General: appearance normal, both eyes and all related structures Pupils: Equal, round and reactive pupils present EOM: EOMs intact bilaterally Neck Neck: Yes full ROM Chest Chest palpation & inspection: normal inspection of the chest Resp Effort & Inspection: normal respiratory effort, able to speak in complete sentences, normal respiratory pattern, no audible wheezes and no cough Cardio Jugular venous distension: no JVD GI Inspection: Yes normal to inspection Back/Spine/Pelvis Other: Tenderness on palpation in paraspinal spinal region lumbar spine, SLR is positive on the left, equivocal on the right. [place] is possibly positive bilaterally however difficult to perform due to multiple widespread lower extremities prior injuries Neuro General: patient oriented x3, gait normal and No confusion Cranial nerves: Yes CN's II-XII intact bilaterally, Yes Equal, round and reactive pupils present, Yes Normal hearing present and Yes Ability to bilaterally elevate shoulders present Speech: No Abnormal speech present Gait exam (Neuro): Normal gait present Motor exam (neuro): 5/5 motor strength present throughout Sensory Exam: No Sensory deficit (Neuro) Extrem Other: Multiple widespread scars on the bilateral lower legs extensive scar on the left hip. Also scar on the right knee. All scars very well-healed. General: No pedal edema Psych Speech and movement: Normal speech and movement present Affect: normal affect Attitude: cooperative Thought process: Normal thought process present Thought content: Normal thought content present Insight: Good insight present (Psych) Judgement: Good judgement present (Psych) Results Reviewed Results Reviewed: MRI lumbar spine [facility] without intravenous contrast 09/21/2023. Alignment vertebra marrow and discs: Alignment is normal, vertebral body heights are preserved. There is no significant marrow signal abnormality. There is mild disc desiccation at L5-S1 with a small central annular tear. Small annular tear is also presented L4-5 L3-L4 and L2-L3 predominantly in the far lateral locations. Conus: The conus is normal in signal and contour with normal level of termination at L1. Paraspinal tissues: The paraspinal tissues visualized retroperitoneal soft tissues are unremarkable. There is a simple cyst in the visualized left kidney. Is T2 hyperintensity in the posterior subcutaneous soft tissue likely dependent edema. T12-L1: Tiny central annular disc tear without spinal canal or foraminal stenosis. L1-L2: No significant spinal canal stenosis or neural foraminal narrowing. The disc is preserved. L2-L3: No significant canal stenosis or neural foraminal narrowing. Small annular tear in the left extraforaminal region. L3-L4 there is a small annular tear in the right extraforaminal region. No disc bulge. Marked epidural fat mild ligamentum flavum thickening mild facet joint arthropathy as well as posterior endplate spurs resulting in mild bilateral foraminal stenosis. There is also [id number] thecal sac stenosis. L4-5: There is mild ligamentum flavum thickening, facet joint arthropathy, posterior endplate spurs resulting is mild bilateral foraminal stenosis. There is a small left extraforaminal annual tear. There is prominent epidural fat resulting in mild thecal sac stenosis. L5-S1 no significant canal stenosis or neural foraminal narrowing. Tiny central annular tear. There is facet joint arthropathy. There is a tapering of the thecal sac at this level with prominent epidural fat. Assessment & Plan Assessment & Plan (1) Radiculopathy, lumbar region: Code(s): M54.16 - Radiculopathy, lumbar region Category: Medical (2) Chronic pain syndrome: Code(s): G89.4 - Chronic pain syndrome Category: Medical Plan Darius continues to report some pain improvement after the injection. He reports improved mobility as well. He reports better social interaction. His pain is still 4/10. I offered him to give us a call when pain is more severe to schedule with us repeat L4-5 transforaminal epidural steroid injection. The pr ocedure will be bilateral. No new appointment at this time. Patient Instructions: I here by testify that I spent 30 minutes in conversation with this patient as well as planning his care evaluating his diagnostic reports and organizing this note. Coding Level of Care Code Est Pt Level 4 (94172) Diagnoses Radiculopathy, lumbar region M54.16 Chronic pain syndrome G89.4
--- OUTSIDE RECORDS SUMMARY | 2024-11-20 09:55 | XMS_ITS ---
Author Organization [employer] Address [address] [place] [address], [place] [address] Care Team Providers Care Collection Specialist Name Role Phone Dania Corral MD Primary Care Provider [phone] High Risk Care Management Status:Enrolled (Active) Start date:09/22/2022 Enrollment date:10/17/2022 Enrollment reason:Identified used clinical data Case Team Name Relationship Phone Aleta Felix RN(Responsible Staff) Registered Nurse [phone] Continued Care and Services Coordination
== END 2024-11-20 10:03 | disposition home or self-care (01) ==
LOC: HO.PMC 09:08
PROVIDERS: Visit Provider Anesthesiology
DX: M54.16 Radiculopathy, lumbar region (principal); G89.4 Chronic pain syndrome
CPT/HCPCS: 99214

== ENCOUNTER → 2024-11-20 09:07 | Outpatient (BNVA) | payer MEDICAID, SELFPAY | PROVIDERS: Visit Provider Anesthesiology | DX: Z71.2 Person consulting for explanation of examination or test findings (principal); M54.16 Radiculopathy, lumbar region; G89.4 Chronic pain syndrome | CPT/HCPCS: 99212 ==

== ENCOUNTER 2025-04-28 06:54 | Outpatient (REF) | payer MEDICAID, SELFPAY ==
--- NOTE | ~2025-04-28 | FL_ITS ---
EXAMINATION: FLUOROSCOPY GUIDANCE FOR NEEDLE PLACEMENT CLINICAL INFORMATION: M54.16 - Radiculopathy, lumbar region COMPARISON: Previous fluoroscopy exam September 2024 TECHNIQUE: Fluoroscopy guidance provided for pain management procedure. FINDINGS: 4 submitted images demonstrate needle placement and contrast injection adjacent to the bilateral lateral lower lumbar spine. See procedure note for detailed findings. FLUOROSCOPY TIME: 40 seconds DOSE AREA PRODUCT: 2321 mGy-cm2 FL/FL guidance in treatment room IMPRESSION: Fluoroscopy guidance for pain management procedure. Electronically signed by: Alicia Ko MD 04/28/2025 01:25 PM EST
--- OUTSIDE RECORDS SUMMARY | 2025-04-28 06:57 | XMS_ITS | Encounter Summary ---
Author Organization [employer] Address [address] [place] [address] [address] [address] Care Team Providers Care Oil House Attendant Name Role Phone Dania Corral MD Primary Care Provider [phone] Reason for Visit * Reason Onset Date Comments Care Coordination 02/09/2025 Encounter Details Date Type Department Care Team (Late st Contact Info) Description 02/09/2025 Telephone [facility] [address] [place] [address] Dania Corral MD [address] [place] [address] Care Coordination Social History Tobacco Use Types Packs/Day Years Used Date Smoking Tobacco: Never Smokeless Tobacco: Never Alcohol Use Standard Drinks/Week Comments Never 0 (1 standard drink = 0.6 oz pur e alcohol) Depression Answer Date Recorded Patient Health Questionnaire-9 Score 18 10/16/2024 Patient Health Questionnaire-9 Score 18 10/16/2024 Last PHQ-9: Questionnaire Data 4 0 10/16/2024 Housing Stability Answer Date Recorded What is your housing situation today? I have housing today, but I am worried about losing housing in the future 10/16/[address] you li ve. Do you have problems with any of the following? None of the above 10/16/2024 Food Insecurity Answer Date Recorded Within the past 12 months, y ou worried that your food would run out before you got money to buy more: Often true 10/16/2024 Within the past 12 months,th e food you bought just didn't last and you didn't have enough money to get more: Often true Transportation Answer Date Recorded In the past [...] Answer Date Recorded Patient Health Questionnaire-2 Score 4 10/16/2024 Internet Access Answer Date Recorded Internet Access Q1 Yes 10/16/2024 Internet Access Q2 Not on file 10/16/2024 Sex and Gender Information Value Date Recorded Sex Assigned at Male 03/24/2022 3:45 PM EDT Legal Sex Male 3:45 PM EDT Gender Identity Male 03/24/2022 3:45 PM EDT Sexual Orientation Straight 07/24/2022 10 :23 AM EST documented as of this encounter Miscellaneous Notes * Telephone Encounter - Jackelyn Jefferson - 02/13/2025 8:07 AM EDT Document printed, completed, and handed to SAV Umana (Dr. Corral's medical review coordinator) to obtain signature from him upon his return. * Telephone Encounter - Bethany Patino - 02/09/2025 4:16 PM EDT [facility] safer at Home calling for an update on a fax that was sent for a General Prescription Form, section 5 should be checked yes and then sign and fax back documented in this encounter Plan of Treatment Upcoming Encounters Date Type Department Care Team (Late st Contact Info) Description 05/22/2025 1:40 PM EST Office Visit [facility] [address] [place] [address] Dania Corral MD [facility] [place] [address] 06/02/2025 3:20 PM EST Telemedicine [facility] [address] [place] [address] Dung Crabtree MD [address] [place] [address] documented as of this encounter Goals Goal [...] Noted Time PHQ-9 Depression Total Score: 18 2 024 1:08 PM EST documented as of this encounter Care Teams Oil House Attendant Relationship Specialty Start Date End Date Dania Corral MD [address] [place] [address] PCP - General Internal Medicine 03/30/22 documented as of this encounter
--- OUTSIDE RECORDS SUMMARY | 2025-04-28 06:57 | XMS_ITS | Encounter Summary ---
Author Organization [facility] Address [address] [place] [address] Care Team Providers Care Airport Shuttle Driver Name Role Phone Physician, No Pcp Primary Care Provider Unavaila ble Encounter Details Date Type Department Care Team (Late st Contact Info) Description 08/06/2024 Lab Requisition [facility] - Main Lab [address] [facility] [place] [address] Maximo Enrique MD [address] [place] [phone] Family history of malignant neoplasm of prostate [...] 2:15 PM EDT [facility] RBC 4.80 4.50 - 5.50 M/mcL LAB HEMETOLOGY METHOD 08/06/2024 2:15 PM EDT [facility] Hemoglobin 13.7 13.5 - 17.5 g/dL LAB HEMETOLOGY METHOD 08/06/2024 2:15 PM EDT [facility] Hematocrit 42.4 42.0 - 54.0 % LAB HEMETOLOGY METHOD 08/06/2024 2:15 PM EDT [facility] MCV 88.1 79.0 - 98.0 FL LAB HEMETOLOGY METHOD 08/06/2024 2:15 PM EDT [facility] MCH 28.5 27.0 - 32.0 pcg LAB HEMETOLOGY METHOD 08/06/2024 2:15 PM EDT [facility] MCHC 32.3 32.0 - 37.0 g/dL LAB HEMETOLOGY METHOD 08/06/2024 2:15 PM EDT [facility] RDW 13.9 11.0 - 15.0 % LAB HEMETOLOGY METHOD 08/06/2024 2:15 PM EDT [facility] Platelets 212 130 - 400 K/mcL LAB HEMETOLOGY METHOD 08/06/2024 2:15 PM EDT [facility] MPV 11.8(H) 7.0 - 11.0 FL LAB HEMETOLOGY METHOD 08/06/2024 2:15 PM EDT [facility] NRBC 0.0 <1.0 % LAB HEMETOLOGY METHOD 08/06/2024 2:15 PM EDT [facility] NRBC Absolute 0.00 <0.10 K/mcL LAB HEMETOLOGY METHOD 08/06/2024 2:15 PM T [facility] Blood Venous blood specimen / Unknown 08/06/2024 9:59 AM EDT 08/06/2024 1:32 PM EDT us Maximo Enrique MD LAB BLOOD ORDERABLES Final Res ult [facility] ([facility] [address] [place] [address], documented in this encounter Visit Diagnoses Diagnosis Family history of malignant neoplasm of prostate documented in this encounter Care Teams Airport Shuttle Driver Relationship Specialty Start Date End Date Physician, No Pcp PCP - General 08/15/24 documented as of this encounter
--- OUTSIDE RECORDS SUMMARY | 2025-04-28 06:57 | XMS_ITS | Encounter Summary ---
Author Organization [employer] Address [address] [place] [address] [address] [place] [address] Care Team Providers Care Leasing Machine Tender Name Role Phone Dania Corral MD Primary Care Provider [phone] Reason for Visit * Reason Comments Med Refill Encounter Details Date Type Department Care Team ([facility] st Contact Info) Description 04/27/2025 Refill [facility] [address] [address] Dung Crabtree MD [address] [place] [address] Social History Tobacco Use Types Packs/Day Years Used Date Smoking Tobacco: Never Smokeless Tobacco: Never Alcohol Use Standard Drinks/Week Comments Never 0 (1 standard drink = 0.6 oz pur e alcohol) Depression Answer Date Recorded Patient Health Questionnaire-9 Score 26 04/13/2025 Patient Health Questionnaire-9 Score 26 04/13/2025 Last PHQ-9: Questionnaire Data 2 1 06/13/2024 Housing Stability Answer Date Recorded What is [...] Date Recorded Patient Health Questionnaire-2 Score 6 04/13/2025 Internet Access Answer Date Recorded Internet Access [...] Description 05/22/2025 1:40 PM EST Office Visit [facility] [address] [place] [phone] Dania Corral MD [address] [place] [address] 06/02/2025 3:20 PM EST Telemedicine [address] [address] Dung Crabtree MD [address] [place] [address] documented as of this encounter Goals Goal [...] Assessment Noted Time PHQ-9 Depression Total Score: 26 025 2:05 PM EST documented as of this encounter Care Teams Leasing Machine Tender Relationship Specialty Start Date End Date Dania Corral MD [address] [place] [address] PCP - General Internal Medicine 03/30/22 documented as of this encounter
--- OUTSIDE RECORDS SUMMARY | 2025-04-28 06:57 | XMS_ITS | Encounter Summary ---
Author Organization [facility] Address [address] [place] [address] Care Team Providers Care Sewage Screen Operator Name Role Phone Physician, No Pcp Primary Care Provider Unavaila ble Encounter Details Date Type Department Care Team (Late st Contact Info) Description 08/06/2024 Lab Requisition [facility] - Main Lab [address] [facility] [place] [address] Bebeto Carbajal MD [address] [place] [address] Urinary tract infection, site not specified Social [...] reflex microscopic (08/06/2024 9:59 AM EDT) Specific Gibson Urine 1.018 1.003 - 1.030 LAB URINALYSIS - AUTOMATED METHOD 08/06/2024 2:39 PM [facility] pH, Urine 6.5 5.0 - 8.0 pH LAB URINALYSIS - AUTOMATED METHOD 08/06/2024 2:39 PM [facility] Leukocytes, Urine Small(A) Negative LAB URINALYSIS - AUTOMATED METHOD 08/06/2024 2:39 PM [facility] Nitrite, Urine Negative Negative LAB URINALYSIS - AUTOMATED METHOD 08/06/2024 2:39 PM [facility] Protein, Urine Negative <=Trace mg/dL LAB URINALYSIS - AUTOMATED METHOD 08/06/2024 2:39 PM [facility] Glucose, Urine Negative Negative mg/dL LAB URINALYSIS - AUTOMATED METHOD 08/06/2024 2:39 PM [facility] Ketones, Urine Negative Negative mg/dL LAB URINALYSIS - AUTOMATED METHOD 08/06/2024 2:39 PM [facility] Urobilinogen, Urine 0.2 0.2 - 1.0 mg/dL LAB URINALYSIS - AUTOMATED METHOD 08/06/2024 2:39 PM [facility] Bilirubin, Urine Negative Negative LAB URINALYSIS - AUTOMATED METHOD 08/06/2024 2:39 PM [facility] Blood, Urine Large(A) Negative LAB URINALYSIS - AUTOMATED METHOD 08/06/2024 2:39 PM [facility] RBC, Urine 7.1(H) 0 - 4 /HPF LAB URINALYSIS - AUTOMATED METHOD 08/06/2024 2:39 PM [facility] WBC, Urine 4.6(H) 0 - 4 /HPF LAB URINALYSIS - AUTOMATED METHOD 08/06/2024 2:39 PM EDT [facility] Squamous Epithelial, Urine 28 0 - 60 /LPF LAB URINALYSIS - AUTOMATED METHOD 08/06/2024 2:39 PM EDT [facility] Bacteria, Urine Negative Negative /HPF LAB URINALYSIS - AUTOMATED METHOD 08/06/2024 2:39 PM EDT [facility] Hyaline Casts, Urine 0.4 0 - 3 /LPF LAB URINALYSIS - AUTOMATED METHOD 08/06/2024 2:39 PM EDT [facility] Urine Urine specimen obtained by clean catch procedure / Unknown 08/06/2024 9:59 AM EDT 08/06/2024 1:35 PM EDT us Bebeto Carbajal MD LAB URINE ORDERABLES Final Resul t Performing Organization Address City/[facility]/ZIP Co de Phone Number [facility] [address] [place] [address], [place] [phone] * Culture urine (08/06/2024 9:59 AM EDT) Culture, Urine No growth 08/07/2024 10:39 AM EDT [facility] Urine Urine specimen obtained by clean catch procedure / Unknown 08/06/2024 9:59 AM EDT 08/06/2024 1:35 PM EDT us Bebeto Carbajal MD LAB MICROBIOLOGY - GENERAL ORDER LESVIA Final Result [facility] [address] [place] [address], [place] [phone] documented in this encounter Visit Diagnoses Diagnosis Urinary tract infection, site not specified documented in this encounter Care Teams Sewage Screen Operator Relationship Specialty Start Date End Date Physician, No Pcp PCP - General 08/15/24 documented as of this encounter
--- OUTSIDE RECORDS SUMMARY | 2025-04-28 06:57 | XMS_ITS | Encounter Summary ---
Author Organization [employer] Address [address] [place] [address] Care Team Providers Care Digital Media Buyer Name Role Phone Dania Corral MD Primary Care Provider [phone] Reason for Visit * Reason Onset Date Comments Care Coordination 02/05/2025 Call Back Request 02/05/2025 Encounter Details Date Type Department Care Team ([facility] st Contact Info) Description 02/05/2025 Telephone [facility] INTER[facility] MED [address] [place] [phone] Dania Corral MD [address] [place] [phone] Care Coordination; Call Back Request Social History Tobacco Use Types Packs/Day Years [...] encounter Miscellaneous Notes * Telephone Encounter - Sue Kramer MA - 03/12/2025 4:45 PM EDT SAV faxed Signed form to [facility]PCM program * Telephone Encounter - Silvia Correia - 02/10/2025 1:31 PM EDT Pt stated that he is calling again to see if Team received paperwork for NON DESTRUCTIVE EVALUATION TECHNICIAN and would like a call back please. * Telephone Encounter - Rose Goodrich - 02/09/2025 11:11 AM EDT Has the NON DESTRUCTIVE EVALUATION TECHNICIAN been received by PCP? It was faxed over by insurance company. Pls call pt with update * Telephone Encounter - Sadaf Srivastava - 02/05/2025 1:49 PM EDT The patient is calling in today, they are looking for a form , that the patient was told by insurance company had been faxed to the provider. The form is the provider okaying a NON DESTRUCTIVE EVALUATION TECHNICIAN automatic machine attendant for the patient. Please call patient, documented in this encounter Plan of Treatment Upcoming Encounters Date Type Department Care Team (Late st Contact Info) Description 05/22/2025 1:40 PM EST Office Visit [facility] [address] [place] [address] Dania Corral MD [address] [place] [phone] 06/02/2025 3:20 PM EST [facility] [address] [address] Dung Crabtree MD [address] [place] [address] documented as of this encounter Goals Goal [...] documented as of this encounter Care Teams Digital Media Buyer Relationship Specialty Start Date End Date Dania Corral MD [address] [place] [address] PCP - General Internal Medicine 03/30/22 documented as of this encounter
--- OUTSIDE RECORDS SUMMARY | 2025-04-28 06:57 | XMS_ITS | Clinical Summary ---
Author Organization [facility] Address [address] [place] [address] Phone Care Team Providers Care Records Management Technician Name Role Phone Physician, No Pcp Primary [...] Safety Answer Date Record ed Physical Abuse Unrecognized value 08/15/2024 Verbal Abuse Unrecognized value 08/15/2024 Sex and Gender Information Value Date [...] 52 09/12/2024 12:23 PM EDT Temperature 36.3 C (97.3 F) 09/12/2024 11:53 AM EDT Respiratory Rate 14 09/12/2024 11:53 AM EDT Oxygen Saturation 99% 09/12/2024 12:23 PM EDT Inhaled Oxygen Concentration - - Weight 97.5 kg (215 lb) 08/28/2024 10:00 AM EDT Height 167.6 cm (5' 5.98 ) 08/28/2024 10:00 AM E DT Body Mass Index 34.72 08/28/2024 10:00 AM EDT Plan of Treatment Health Maintenance Due Date Last Done Comments Colorectal Cancer Screening: Colonoscopy 1962 Diabetes: Annual GFR (Glomerular Filtration Rate) 1962 Diabetes: Annual Foot Exam 1972 Diabetes: Annual Retina Eye Exam 1972 DTaP,Tdap,and Td Vaccines (1 - Tdap) 1981 Pneumococcal Vaccine: 50+ Years (1 of 1 - PCV) 2012 Zoster Vaccines (1 of 2) 2012 Depression Screening 05/28/2024 Cholesterol Screening (Lipid Panel) 07/09/2024 HIV Screening 07/09/2024 Hepatitis C Screening 07/09/2024 Social Influencers of Health Screening 07/09/2024 Diabetes: Annual Urine Albumin-Creatinine Ratio (uACR) 08/05/2024 Diabetes: Blood Sugar Contro l Test (HGBA1C) 08/05/2024 Hypertension/CHF/CAD Annual BMP Blood Test 08/05/2024 COVID-19 Vaccine ( - 2024-2 6 season) 2025 06/28/2021, 08/10/2020, 07/13/2020 Influenza Vaccine (#1) 2025 RSV Immunization Adult Patients (1 - [...] patient's age to complete this topic Insurance [address] [place] [address] MEDICA[place] Care Teams Records Management Technician Relationship Specialty Start Date End Date Physician, No Pcp PCP - General 08/15/24
--- OUTSIDE RECORDS SUMMARY | 2025-04-28 06:57 | XMS_ITS | Encounter Summary ---
Author Organization [employer] Address [address] [place] [address] 7 [place] [address] Care Team Providers Care Wind Turbine Service Technician Name Role Phone Dania Corral MD Primary Care Provider Encounter Details Date Type Department Care Team ([facility] st Contact Info) Description 03/12/2025 Telephone [facility] INTERNAL MED [address] [place] [address] Sue Diaz MA Social History Tobacco Use Types Packs/Day Years [...] Encounter - Sue Kramer MA - 03/12/2025 4:24 PM EDT SAV faxed sign form to [facility] program documented in this encounter Plan of Treatment Upcoming Encounters Date Type Department Care Team (Late st Contact Info) Description 05/22/2025 1:40 PM EST Office Visit [facility] INTERNAL MED [address] [place] [address] Dania Corral MD [address] [place] [phone] 06/02/2025 3:20 PM EST [facility] [address] [address] Dung Crabtree MD [address] [place] [phone] documented as of this encounter Goals Goal Patient Goal Type Associated Problems Recent Progress Patient-Stated? Author Establish Regular Follow-Ups with PCP Care Plan HBA1C Uncontrolled No Aleta Felix, RAYMUNDO Reduce HBA1C Levels Below 9% Care Plan HBA1C Uncontrolled No Aleta Felix, RAYMUNDO Consistently take Medications as Prescribed Care Plan Med Adherence No Aleta Felix RN Exercise at Least 20 Minutes per Day Care Plan Patient is Inactive No Aleta Felix RN Wellness - Improve Physical Activity Care Plan Patient is Inactive No Aleta Feilx RN Wellness - Annual Optometry apointment Care [...] documented as of this encounter Care Teams Wind Turbine Service Technician Relationship Specialty Start Date End Date Daina Corral MD [address] [place] [phone] PCP - General Internal Medicine 03/30/22 documented as of this encounter
--- OUTSIDE RECORDS SUMMARY | 2025-04-28 06:57 | XMS_ITS ---
Author Organization [facility] [employer] [facility] Address [address] [place] [address] 7 [place] [address] Care Team Providers Care Quality Improvement Analyst Name Role Phone Dania Corral MD Primary Care Provider [phone] High Risk Care Management Status:Enrolled (Active) Start date:09/22/2022 Enrollment date:10/17/2022 Enrollment reason:Identified used clinical data Case Team Name Relationship Phone Aleta Felix RN(Responsible Staff) Registered Nurse [phone] Continued Care and Services Coordination
--- OUTSIDE RECORDS SUMMARY | 2025-04-28 06:57 | XMS_ITS | Encounter Summary ---
Author Organization [employer] Address [address] [place] [address] 7 [place] [address] Care Team Providers Care Chief Underwriter Name Role Phone Dania Corral MD Primary Care Provider Encounter Details Date Type Department Care Team ([facility] st Contact Info) Description 03/11/2025 Telephone [facility] INTERNAL MED [address] [place] [address] Sue Diaz MA Social History Tobacco Use [...] Telephone Encounter - Sue Kramer MA - 03/11/2025 9:38 AM EDT SAV received a call from the call center. The patient was requesting to speak with the medical lab technologist regarding the AUTOMOTIVE PARTS COUNTER ASSOCIATE form. SAV accepted the transferred call and spoke with the patient. The patient explained that the AUTOMOTIVE PARTS COUNTER ASSOCIATE has not received the form and it has been over a month. SAV placed the patient on hold to gather an update. SAV spoke with RAYMUNDO Sparks, who confirmed that she contacted [facility]. [facility] had sent the form to the wrong fax number, but they will re-fax it to the correct number. We are currently waiting for Medical Records to receive the corrected form. SAV returned to the call and explained the situation to the patient. SAV informed the patient that once the form is received, it will be signed and faxed back as soon as possible. The patient then asked for the correct fax number to provide to [facility] directly. SAV provided the fax number: [phone]. documented in this encounter Plan of Treatment Upcoming Encounters Date Type Department Care Team (Late st Contact Info) Description 05/22/2025 1:40 PM EST Office Visit [facility] [address] [place] [address] Dania Corral MD [address] [place] [address] 06/02/2025 3:20 PM EST Telemedicine [facility] [address] [place] [address] Dung Crabtree MD [address] [place] [address] documented as of this encounter Goals Goal [...] documented as of this encounter Care Teams Chief Underwriter Relationship Specialty [place] [address] [place] [phone] PCP - General Internal Medicine 03/30/22 documented as of this encounter
--- OUTSIDE RECORDS SUMMARY | 2025-04-28 06:57 | XMS_ITS | Encounter Summary ---
Author Organization [employer] Address [address] [place] [address] 7 [place] [address] Care Team Providers Care Security Guard Dispatcher Name Role Phone Dania Corral MD Primary Care Provider Reason for Visit * Reason Onset Date Comments Signed Form 03/03/2025 Encounter Details Date Type Department Care Team ([facility] Contact Info) Description 03/03/2025 Telephone [facility] INTERNAL MED [address] [place] [address] [place] Signed Form Social History Tobacco Use Types Packs/Day Years [...] Telephone Encounter - Sue Kramer MA - 03/03/2025 4:05 PM EDT SAV printed and faxed the signed form to [facility] on 03/03/2025 at 4:19 PM. SAV successfully faxed the signed form to [facility] at 4:19?PM on 03/03/2025. documented in this encounter Plan of Treatment Upcoming Encounters Date Type Department Care Team (Late st Contact Info) Description 05/22/2025 1:40 PM EST Office Visit [facility] [address] [place] [address] Dania Corral MD [address] [place] [address] 06/02/2025 3:20 PM EST Telemedicine [facility] [address] [address] Dung Crabtree MD [address] [place] [phone] documented as of this encounter Goals Goal [...] documented as of this encounter Care Teams Security Guard Dispatcher Relationship Specialty Start Date End Date Dania Corral MD [address] [place] [phone] PCP - General Internal Medicine 03/30/22 documented as of this encounter
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
--- OUTSIDE RECORDS SUMMARY | 2025-04-28 06:57 | XMS_ITS | Clinical Summary ---
Author Organization [employer] Address [address] [place] [address] 7[address] [place] [address] Care Team Providers Care Sketcher Name Role Phone Dania Corral MD Primary Care Provider [phone] Allergies No known active allergies Medications * [...] mg by mouth at bedtime. 3 Active lisinopril 10 MG tabletIndicati ons:Type 2 diabetes mellitus without complication, without long-term current use of insulin (HCC),Idiopath ic esophageal varices without bleeding (HCC) TAKE 1 TABLET (10 MG) BY MOUTH IN THE MORNING. 90 tablet 1 5 026 Active amitriptyline (Elavil) 25 MG tabletIndicati ons:Post traumatic stress disorder,Arthr algia of both lower legs TAKE 1 TABLET (25 MG) BY MOUTH at BEDTIME. 90 tablet 1 5 026 Active metFORMIN (Glucophage) 500 MG tabletIndicati ons:Type 2 diabetes mellitus without complication, without long-term current use of insulin (HCC) TAKE 1 TABLET (500 MG) BY MOUTH WITH BREAKFAST. 90 tablet 1 5 Active nadolol (Corgard) 20 MG tabletIndicati ons:Idiopathic esophageal varices without bleeding (HCC) TAKE 1 TABLET (20 MG) BY MOUTH IN THE MORNING. 90 tablet 2 5 Active gabapentin (Neurontin) 600 MG tabletIndicati ons:Type 2 diabetes mellitus without complication, without long-term current use of insulin (HCC),Arthralg ia of both lower legs TAKE 1 TABLET (600 MG) BY MOUTH 2 TIMES DAILY. 60 tablet 9 5 Active ARIPiprazole (Abilify) 10 MG tablet Take 1 tablet (10 mg) by mouth Once per day. 90 tablet 5 Active melatonin 3 MG tablet Take 1 tablet (3 mg) by mouth at bedtime. 90 tablet 5 Active prazosin (Minipress) 1 MG capsuleIndicat ions:Post traumatic stress disorder Take 1-2 capsules (1-2 mg) by mouth at bedtime. For nightmares. 180 capsule 5 026 Active sertraline (Zoloft) 100 MG tabletIndicati ons:Major depressive disorder, recurrent severe without psychotic features (CMS/HCC) (HCC),Generali zed anxiety disorder,Post traumatic stress disorder Take 2 tablets (200 mg) by mouth Once per day. 180 tablet 5 Active topiramate (Topamax) 50 MG tablet Take 0.5 tablets (25 mg) by mouth if needed at bedtime (breakthroug h nightmares). In addition to 100mg tablet. 45 tablet 5 026 Active topiramate (Topamax) 100 MG tabletIndicati ons:Post traumatic stress disorder Take 1 tablet (100 mg) by mouth at bedtime. For nightmares. 90 tablet 5 026 Active atorvastatin (Lipitor) 20 MG tabletIndicati ons:Type 2 diabetes mellitus without complication, without long-term current use of insulin (HCC) TAKE 1 TABLET (20 MG) BY MOUTH IN THE MORNING. 90 tablet 5 Active atorvastatin (Lipitor) 20 MG tabletIndicati ons:Type 2 diabetes mellitus without complication, without long-term current use of insulin (HCC) TAKE 1 TABLET (20 MG) BY MOUTH IN THE MORNING. 90 tablet 025 Discontinued Active Problems Problem Noted Date Diagnosed Date [...] of connecting with pain medicine specialists in [place] for further management. Patient is awaiting a [...] headaches sometime. Reports already got referral for [facility] but he needs to call to schedule [...] headaches sometime. Reports already got referral for [facility] but he needs to call to schedule [...] as he would like it done at [facility]. - Antidepressant as per Depression - Continue [...] to hydrate. Patient agreed. Sent info-sheet in [place] as well via [employer]. Patient started therapy outside of . Patient [...] Patient has an upcoming appointment with a [place]-speaking doctor at the pain specialist's office - Staff to conduct phone check-in in 3 weeks - Refill medication if needed after 3 weeks Assessment & Plan (01/10/2024 1:43 PM EDT): - Patient reports pain on the left side, which has been bothering them for three months. - Last saw pain specialist at [facility] approximately five months ago. - Patient mentions pain in this side, this side, here, here indicating left side. - Plan: Submit referral for a pain specialist in [place]. Have social work case manager assist with connecting the patient [...] Opioid use disorder, severe, in sustained remission ([facility]) 11/19/2019 Assessment & Plan (03/03/2025 3:55 PM EDT): Assessment & Plan (12/02/2024 5:42 PM EDT): - Sober - Ongoing Vivitrol through clinic in [facility] Assessment & Plan (09/30/2024 10:34 AM EDT): - Sober - Ongoing Vivitrol through clinic in [facility] Assessment & Plan (09/01/2024 9:13 AM EDT): - Sober - Ongoing Vivitrol through clinic in [facility] Assessment & Plan (08/04/2024 8:33 AM EDT): - Sober - Ongoing Vivitrol through clinic in [facility] Assessment & Plan (07/08/2024 2:13 PM EST): - Sober - Ongoing Vivitrol through clinic in [facility] Assessment & Plan (04/18/2024 8:56 AM EST): - Sober - Ongoing Vivitrol through clinic in [facility] Assessment & Plan (02/25/2024 2:27 PM EDT): - Sober - Ongoing Vivitrol through clinic in [facility] Assessment & Plan (11/23/2023 10:59 AM EDT): - Sober - Ongoing Vivitrol through clinic in [facility] Assessment & Plan (08/23/2023 10:05 AM EDT): - Sober - Ongoing Vivitrol through clinic in [facility] Assessment & Plan (06/22/2023 3:22 PM EST): - Sober - Ongoing Vivitrol through clinic in [facility] Assessment & Plan (04/17/2023 10:38 AM EST): - Sober - Ongoing Vivitrol through clinic in [facility] Assessment & Plan (03/20/2023 9:49 AM EDT): - Sober - Ongoing Vivitrol through clinic in [facility] Assessment & Plan (02/20/2023 9:21 AM EDT): - Sober - Ongoing Vivitrol through clinic in [facility] Assessment & Plan (01/23/2023 10:22 AM EDT): - Sober - Ongoing Vivitrol through clinic in [facility] Assessment & Plan (12/26/2022 9:08 AM EDT): - Sober - Ongoing Vivitrol through clinic in [facility] Assessment & Plan (09/24/2022 2:12 PM EDT): - Sober - Ongoing Vivitrol through clinic in [facility] Assessment & Plan (07/23/2022 12:09 PM EST): - Sober - Ongoing Vivitrol through clinic in [facility] Assessment & Plan (06/14/2022 9:42 AM EST): - Sober - Ongoing Vivitrol through clinic in [facility] Esophageal varices 11/18/2019 Assessment & Plan [...] disorder, r ecurrent severe without psychotic features (CMS/HCC) 11/18/2019 Assessment & Plan (03/03/2025 3:55 PM [...] used to this since his time in group home and can reflect there are ways he [...] during cross-taper) - On waitlist for new [place]-speaking therapist at , provided contact information for Eduardo Quesada and encouraged to try for now. Pt looking into a clinic in [place] as well - Encourage to try group [...] do telehealth intake but not heard back. [place] there may be a therapist in [place] taking patients so plans to look into this as well. Encouraging to find therapist rather than change medications as most likely get the most benefit from having a therapist at this time. Currently, there are no [place]an-speaking therapists at [facility] but patient is formally on the wait list. - Continue Zoloft 200mg - Aware patient is on amitriptyline from PCP and at increased risk of serotonin syndrome but has been on this agent for decades without issues, reviewed signs and symptoms of SS and to seek immediate medical attention if concerned (particularly during cross-taper) - On waitlist for new [place]-speaking therapist at , provided contact information for Eduardo Quesada and encouraged to try for now. Pt looking into a clinic in [place] as well - Encourage to try group therapy to socialize more Assessment & Plan (12/27/2022 11:16 AM EDT): Mood varies. Periods of low mood in setting of loneliness. Does reflect felt better when had therapist. Provided contact information for Eduardo Quesada which provides therapy and substance use treatment in [place], including individual and group therapy. Encouraging to [...] during cross-taper) - On waitlist for new [place]-speaking therapist at , provided contact information for [...] Reports stable although does feel isolated. Considering marshallese-speaking group therapy but the one he asked [...] who runs a substance use group in [place] and willing to consider joining it although [...] some heightened vigilance around safety. Paranoid disorder (CMS/HCC) 11/18/2019 06/14/2022 Encounters Date Type Department Care Team Description 04/27/2025 Refill [facility] [address] Dung Crabtree MD 04/15/2025 Patient Outreach [address] [address] Miquel Guerra 04/14/[address] [address] Dung Crabtree MD Outreach 04/13/2025 Travel 03/31/[address] [address] Dania Corral MD Type 2 diabetes mellitus without complication, without long-term current use of insulin ([facility]) 03/23/2025 Patient Outreach [address] [address] Miquel Guerra 03/12/[address] [address] Sue Diaz MA 03/11/[address] [address] Sue Diaz [place] 03/03/2025 3:20 PM EDT Telemedicine [address] [address] Dung Crabtree MD Med Management 03/03/[address] [address] Sue Diaz MA Signed Form 03/02/[address] [address] Dania Corral MD Care Coordination 03/02/[address] [address] Sima Lang MA Care Coordination 02/24/[address] [address] Clare Jones RN [facility] 02/24/2025 Travel 02/18/[address] [address] Dania Corral MD Care Coordination 02/18/2025 Patient Outreach [address] [address] Miquel Guerra 02/12/[address] [address] Dania Corral MD Care Coordination 02/09/[address] [address] Dania Corral MD Care Coordination 02/05/[address] [address] Dania Corral MD Care Coordination; Call Back Request 02/02/[address] [address] Dung Crabtree MD from Last 3 Months Immunizations Immunization Administration Dates Next Due Moderna Covid-19 Vaccine [...] enough money to get more: Often true 05/ Transportation Answer Date Recorded In the past [...] 62 01/10/2024 1:01 PM EDT Temperature 36.9 C (98.4 F) 06/28/2023 1:05 PM EST Respiratory Rate - - Oxygen Saturation 98% [...] Description 05/22/2025 1:40 PM EST [facility] [address] [place] [address] Dania Corral MD [address] [place] [address] 06/02/2025 3:20 PM EST Telemedicine [address] [address] Dung Crabtere MD [address] [place] [address] Health Maintenance Due Date Last Done Comments CT Colonography 1962 Colonoscopy 1962 Colorectal Cancer Screening 1962 FIT DNA/Cologuard 1962 FIT 1962 FOBT 1962 Sigmoidoscopy 1962 Diabetes: Foot Exam 1972 Eye Exam 1972 Alcohol/Substance Use Screening 1974 DTaP/Tdap/Td Vaccines (1 - Tdap) 1981 Diabetes: Urine Protein Screening 1981 Pneumococcal Vaccine: 50+ Years (1 of 2 - PCV) 1981 RSV Patients and Patients Aged 60 years or older (1 - Risk 50-74 years 1-dose series) 2012 Zoster Vaccines (1 of 2) 2012 Diabetes: Hemoglobin A1C 07/12/2024 024, 04/27/2023, 07/27/2022, Additional history exists Lipid Panel 01/09/2025 01/10/2024, 07/27/2022 COVID-19 Vaccine ( season) 2025 06/28/2021, 08/10/2020, 07/13/2020 Influenza Vaccine (#1) 2025 Disability Screening 05/14/2025 05/14/2024 Tobacco Screening 08/14/2025 08/14/2024 Depression Monitoring 10/11/2025 04/13/2025, 025 SDOH Screening 10/16/2025 10/16/2024 HIV Screening Completed 12/03/2019 Hepatitis C Screening [...] Optometry apointment Care Plan Wellness Concerns No lAeta Felix RN Wellness - Podiatry DM foot [...] complication, without long-term current use of insulin ([facility]) LIPID PANEL WITH REFLEX TO DIRECT LDL Routine 01/10/2024 1:44 PM EDT Hyperlipidemia, unspecified hyperlipidemia type Arthralgia of both lower legs Type 2 diabetes mellitus without complication, without long-term current use of insulin ([facility]) [facility] HISTOR[facility] A LAB RESULT Routine 06/28/2021 12:00 AM EST [facility] LAB RESULT Routine 12/03/2019 10:12 AM EDT from Last 3 Months or Most Recently Relevant to Health Maintenance Results * (ABNORMAL) Lipid Panel with Reflex to Direct LDL (01/10/2024 1:44 PM EDT) [facility] Cholesterol, Total 131 <200 mg/dL [facility] [place] [facility] HDL Cholesterol 34(L) > OR = 40 mg/dL [facility] [place] [facility] Triglycerides 172(H) <150 mg/dL [facility] [place] [facility] LDL Cholesterol 72 mg/dL [facility] [place] [facility] Comment: Reference range: <100 Desirable range <100 mg/dL for primary prevention; <70 mg/dL for patients with CHD or diabetic patients with > or = 2 CHD risk factors. LDL-C is now calculated using the Joselin calculation, which is a validated novel method providing better accuracy than the Friedewald equation in the estimation of LDL-C. Chris SS et al. DIPESH. 2013;310(19): 7982-7467 (http://education.Communicado/faq/IJW680) Chol/HDLC Ratio 3.9 <5.0 (calc) [facility] [place] [facility] Non-HDL Cholesterol 97 <130 mg/dL [facility] [place] [facility] Comment: For patients with diabetes plus 1 major ASCVD risk factor, treating to a non-HDL-C goal of <100 mg/dL (LDL-C of <70 mg/dL) is considered a therapeutic option. Blood 01/10/2024 1:44 PM EDT 01/10/2024 1:44 PM EDT us Dania Corral MD LAB BLOOD ORDERABLES Final Resul t [facility] [address], [place] [address] [facility] [place] [facility] [address] [place] [address] * (ABNORMAL) Hemoglobin A1c with Calculated Mean Plasma Glucose (MPG) (01/10/2024 1:44 PM EDT) Hemoglobin A1c 5.7(H) <5.7 % of total Hgb [facility] [place] [facility] Comment: For someone without known diabetes, a [...] children. Mean Plasma Glucose 126 mg/dL (calc) [facility] [place] [facility] [employer] Comment: This test was performed on the Kristi nacho c503 platform. Effective 07/30/23, a change in test platforms from the [employer] to the Kristi nacho c503 may have shifted HbA1c results compared to historical results. Based on laboratory validation testing conducted at [facility], the Kristi platform relative to the Brewer [...] MD LAB BLOOD ORDERABLES Final Resul t [facility] [address], [place] [address] [facility] [address] [place] [address] * (ABNORMAL) HISTORICAL MARCO A LAB RESULT [...] [facility] [address] from Last 3 Months or Most Recently Relevant to Health Maintenance Additional Health Concerns Active Problems Noted Date Diagnosed Date Diet Management 10/18/2022 HBA1C Uncontrolled 10/18/2022 Med Adherence 10/18/2022 Patient is Inactive 10/18/2022 Wellness Concerns 10/18/2022 Insurance [facility] C3 Care Teams Sketcher Relationship Specialty Start Date End Date Dania Corral MD [address] [place] [id number] PCP - General Internal Medicine 03/30/22
--- OUTSIDE RECORDS SUMMARY | 2025-04-28 06:57 | XMS_ITS | Encounter Summary ---
Author Organization [facility] Address [address] [place] [address] Care Team Providers Care Visual Merchandising Manager Name Role Phone Physician, No Pcp Primary Care Provider Unavaila ble Encounter Details Date Type Department Care Team (Late st Contact Info) Description 08/29/2024 Lab Requisition [facility] - [facility] Lab [address] [facility] [place] [address] Maximo Enrique MD [address] [place] [phone] Urinary tract infection, site not specified; Calculus [...] reflex microscopic (08/29/2024 9:52 AM EDT) Specific [place] Urine 1.019 1.003 - 1.030 LAB URINALYSIS - AUTOMATED METHOD 08/29/2024 12:18 PM [facility] pH, Urine 6.0 5.0 - 8.0 pH LAB URINALYSIS - AUTOMATED METHOD 08/29/2024 12:18 PM [facility] Leukocytes, Urine Moderate(A) Negative LAB URINALYSIS - AUTOMATED METHOD 08/29/2024 12:18 PM [facility] Nitrite, Urine Negative Negative LAB URINALYSIS - AUTOMATED METHOD 08/29/2024 12:18 PM [facility] Protein, Urine 100(A) <=Trace mg/dL LAB URINALYSIS - AUTOMATED METHOD 08/29/2024 12:18 PM [facility] Glucose, Urine Negative Negative mg/dL LAB URINALYSIS - AUTOMATED METHOD 08/29/2024 12:18 PM [facility] Ketones, Urine Trace(A) Negative mg/dL LAB URINALYSIS - AUTOMATED METHOD 08/29/2024 12:18 PM [facility] Urobilinogen , Urine 1.0 0.2 - 1.0 mg/dL LAB URINALYSIS - AUTOMATED METHOD 08/29/2024 12:18 PM [facility] Bilirubin, Urine Negative Negative LAB URINALYSIS - AUTOMATED METHOD 08/29/2024 12:18 PM [facility] Blood, Urine Large(A) Negative LAB URINALYSIS - AUTOMATED METHOD 08/29/2024 12:18 PM [facility] RBC, Urine 235.2(H) 0 - 4 /HPF LAB URINALYSIS - AUTOMATED METHOD 08/29/2024 12:18 PM [facility] WBC, Urine 142.2(H) 0 - 4 /HPF LAB URINALYSIS - AUTOMATED METHOD 08/29/2024 12:18 PM [facility] Squamous Epithelial, Urine 5 0 - 60 /LPF LAB URINALYSIS - AUTOMATED METHOD 08/29/2024 12:18 PM [facility] Bacteria, Urine Negative Negative /HPF LAB URINALYSIS - AUTOMATED METHOD 08/29/2024 12:18 PM [facility] Hyaline Casts, Urine 6.8(H) 0 - 3 /LPF LAB URINALYSIS - AUTOMATED METHOD 08/29/2024 12:18 PM [facility] Urine Urine specimen obtained by clean catch procedure / Unknown 08/29/2024 9:52 AM EDT 08/29/2024 11:24 AM EDT us Maximo Enrique MD LAB URINE ORDERABLES Final Res ult [facility] [address] [place] [address], * Prothrombin time with INR (08/29/2024 9:52 [...] ult [facility] [address] [place] [address], * (ABNORMAL) Complete blood count (08/29/2024 9:52 AM EDT) WBC 8.1 4.8 - 10.8 K/mcL LAB HEMETOLOGY METHOD 08/29/2024 12:37 PM EDT [facility] RBC 4.50 4.50 - 5.50 M/[facility] LAB HEMETOLOGY METHOD 08/29/2024 12:37 PM EDT [...] PM EDT [facility] RDW 14.1 11.0 [...] ult [facility] [address] [place] [address], [place] [phone] * Culture urine (08/29/2024 9:52 AM EDT) Culture, Urine No growth 08/30/2024 10:46 AM EDT [facility] Urine Urine specimen obtained by clean catch procedure / Unknown 08/29/2024 9:52 AM EDT 08/29/2024 11:24 AM EDT us Maximo Enrique MD LAB MICROBIOLOGY - GENERAL ORD ERABLES Final Result [facility] [address] [place] [address], [place] [phone] documented in this encounter Visit Diagnoses Diagnosis Urinary tract infection, site not specified Calculus of kidney documented in this encounter Care Teams Visual Merchandising Manager Relationship Specialty Start Date End Date Physician, No Pcp PCP - General 08/15/24 documented as of this encounter
--- OUTSIDE RECORDS SUMMARY | 2025-04-28 06:57 | XMS_ITS | Encounter Summary ---
Author Organization [employer] Address [address] [place] [address] [address] [address] Care Team Providers Care Equine Pharmacology Technician Name Role Phone Dania Corral MD Primary Care Provider [phone] Marian Lazo RN Unavailable Reason for Visit * Reason Comments Med Refill Encounter Details Date Type Department Care Team (Late st Contact Info) Description 06/30/2022 Refill [facility] [address] [place] [address] Dania Corral MD [address] [place] [address] Type 2 diabetes mellitus without complication, without [...] 1:40 PM EST Office Visit [facility] [address] [place] [phone] Dania Corral MD [address] [place] [address] 06/02/2025 3:20 PM EST Telemedicine [address] [address] Dung Crabtree MD [address] [place] [address] documented as of this encounter Visit Diagnoses Diagnosis Type 2 diabetes mellitus without complication, without long-term current use of insulin (HCC) Arthralgia of both lower legs documented in this encounter Care Teams Equine Pharmacology Technician Relationship Specialty Start Date End Date Dania Corral MD [address] [place] [address] PCP - General Internal Medicine 03/30/22 Marian Lazo, RAYMUNDO Registered Nurse Family Medicine 02/05/23 05/07/23 documented as of this encounter
== END 2025-04-28 06:55 | disposition home or self-care (01) ==
LOC: CF 06:54
PROVIDERS: Visit Provider Anesthesiology
DX: M54.16 Radiculopathy, lumbar region (principal); G89.4 Chronic pain syndrome
CPT/HCPCS: 64483; J2003; J3301; Q9967

== ENCOUNTER 2025-04-28 09:24 | Outpatient (AMB) | payer MEDICAID, SELFPAY ==
[2025-04-28 09:57] VITALS: BP 135/79; PULSE 91; RESP 16; O2SAT 98; BMI 35.5
--- NOTE | 2025-04-28 09:57 | MHC.OFFVIS ---
Vital Signs 04/28/25 09:57 04/28/25 11:26 Height 5 ft 6 in Weight 220 lb BMI 35.5 BP 135/79 135/79 Blood Pressure Location Lt brachial Lt brachial Position Sitting Sitting Respiration 16 16 Pulse 91 90 Pulse Source Pulse Oximeter Pulse Oximeter Pulse Oximetry (%) 98 98 Oxygen Delivery Method Room Air Room Air Intake Visit Reasons: BILATERAL L4, L5 TFESI Allergies No Known Allergies Allergy (Verified 11/20/24 09:43) [facility] Social History (Updated 08/04/24 @ 13:09 by CADENCE Brady) Substance Use Type: Heroin Physical Exam Vital Signs: Last Vital Signs Pulse 90 04/28/25 11:26 Resp 16 04/28/25 11:26 BP 135/79 04/28/25 11:26 Pulse Ox 98 04/28/25 11:26 Oxygen Delivery Method Room Air 04/28/25 11:26 BMI result Body Mass Index 35.5 Assessment & Plan Assessment & Plan (1) Radiculopathy, lumbar region: Code(s): M54.16 - Radiculopathy, lumbar region Category: Medical (2) Chronic pain syndrome: Code(s): G89.4 - Chronic pain syndrome Category: Medical Plan Bilateral transforaminal epidural steroid injection L5-S1. The patient came to the operating room after obtaining informed consent. The risk of the procedure were delineated as risk of bleeding infection peripheral nerve damage epidural hematoma spinal cord damage epidural abscess spinal cord damage and headache. The patient was positioned on the operating table prone with pillow under the abdomen. Time-out was performed delineating correct side and site of the procedure, date of of the patient, need of antibiotics , risk of fire . The patient's lower back was prepped with ChloraPrep and draped with sterile utility towels. C-arm was brought over the operating field and sq picture of L5 vertebra was delineated on the screen. After that C-arm was tilted 30 degrees to the right to demonstrate most prominent image of the pedicle of L5 on the right. 3 mm below the lowest point of the pedicle projection to the skin was chosen starting point of the injection. 22 gauge 5 in needle was inserted through the skin and started to advance to foramina on anterior posterior and lateral as well oblique views. The needle was advanced in tunnel vision fashion. One on lateral view the needle entered the most posterior and superior portion of the foramen injection of the contrast was performed delineating anterior epidural space of the contrast. After that treatment solution containing 3 mL of preservative-free lidocaine 1% mixed with Kenalog 40 mg was injected into the needle. Upon completion of the injection the procedure was repeated on the left side in mirroring fashion. Upon completion of the injections sterile Band-Aids were applied. The patient tolerated the procedure well he was awakened and taken out of the injection site to the recovery room where he recovered uneventfully. Orders: Orders FL guidance in treatment room Today M54.16 - Radiculopathy, lumbar region Coding Level of Care Code Procedure Only Diagnoses Radiculopathy, lumbar region M54.16 Chronic pain syndrome G89.4
[2025-04-28 11:26] VITALS: BP 135/79; PULSE 90; RESP 16; O2SAT 98
== END 2025-04-28 11:30 | disposition home or self-care (01) ==
LOC: HO.PMCPRC 09:24
PROVIDERS: Visit Provider Anesthesiology
DX: M54.16 Radiculopathy, lumbar region (principal); G89.4 Chronic pain syndrome
CPT/HCPCS: 64483